=== PATIENT | male | born 1940 | race Caucasian/White ===

== ENCOUNTER → 2021-06-10 | Outpatient (CLI) | payer MEDICARE, SELFPAY ==
--- NOTE | 2021-06-10 14:37 | RAD_ITS ---
STUDY: X-RAY CHEST REASON FOR EXAM: Male, 80 years old. SOB x1 YR, WORSE ON EXACERBATION LUNG NODULE FINDING PER PATIENT AT ANOTHER FACILITYSOB TECHNIQUE: XR Chest 2 Views COMPARISON: Prior comparison studies are not available for review at this time. FINDINGS: There is no demonstrated pleural abnormality. There is a mass like infiltrate of the right lower lobe and right upper lobe. These measure 45 mm in right lower lobe. The nodules in the right upper measure 9.6 mm and 8.8 mm. Normal size heart. Normal mediastinum and prashant. Normal visualized pulmonary arteries. There is atherosclerotic calcification of the aortic arch with tortuosity. There are diffuse degenerative changes of the visualized thoracic spine. There is degenerative osteoarthritis of the bilateral shoulders. There is no demonstrated abnormality of the visualized soft tissue structures of the upper abdomen. RAD/Chest PA and Lateral IMPRESSION: Right upper lobe and right lower lobe nodule. Neoplastic process cannot be excluded. Recommend CT chest for further evaluation. Electronically Signed: Chris Vizcaino MD at 16:45 EST ,
[2021-06-10 14:38] LABS: Bacteria 0 SEEN /hpf (None Seen); Mucous, Urine 0 SEEN /hpf (<or=2+); Squamous Epithelial Cells - UA 0 SEEN /hpf (0-5)
[2021-06-10 18:12] LABS: Absolute Lymphocyte Count 1.31 X10^3/uL (0.83-4.51); Absolute Neutrophil Count 3.5 X10^3/uL (2.0-7.7); Basophil# 0.05 X10^3/uL; Basophil% 0.9 % (0-1); Eosinophil# 0.29 X10^3/uL; Hematocrit 48.3 % (40-54); Hemoglobin 16.6 g/dL (13.0-16.5); Lymphocyte # 1.31 X10^3/ul (0.83-4.51); Lymphocyte % 22.5 % (19-41); Mean Corp Hgb Conc 34.4 g/dL (32-36); Mean Corpuscular Hgb 32.9 pg (27.0-32.0); Mean Corpuscular Volume 95.8 fL (80-94); Mean Platelet Vol. 10.3 fl (6.2-12.0); Monocyte# 0.62 X10^3/uL; Monocyte% 10.7 % (0-10); NRBC Flagged by Analyzer 0 % (0-5); Neutrophil # 3.52 X10^3/uL (2.7-7.7); Neutrophil % 60.6 % (47-70); Platelet Count 135 K/mm3 (150-450); RBC Distribution Width CV 13.4 % (11.6-14.6); Red Blood Count 5.04 M/mm3 (4.6-6.2); White Blood Count 5.8 K/mm3 (4.4-11.0)
[2021-06-10 18:14] LABS: Color, Urine Yellow (Yellow); Glucose, Dipstick Normal (Normal); Ketone-Dipstick 5 mg/dl (Negative); Leukocyte Esterase-Dipstick 25 /ul (Negative); Nitrite-Dipstick Negative (Negative); Occult Blood-Urine 50 /ul (Negative); Protein-Dipstick 100 mg/dl (Negative); Urine Bilirubin Dipstick Negative (Negative); Urine Clarity Clear (Clear); Urine Urobilinogen Normal (Normal)
[2021-06-10 18:36] LABS: ALB/GLOB Ratio 0.8 RATIO (0.9-2.4); AST(SGOT) 52 U/L (15-37); Alanine Aminotransfer ALT/SGPT 61 U/L (16-61); Albumin, Serum 3.8 g/dL (3.2-5.0); Alkaline Phosphatase 77 U/L (45-117); Anion Gap 6 (5-15); BUN 15 mg/dL (7-18); BUN/Creat Ratio 15.8 RATIO (10-20); Calcium,Total 8.7 mg/dL (8.5-10.1); Chloride 107 mmol/L (98-107); Cholesterol 191 mg/dL (200); Creatinine, Serum 0.95 mg/dL (0.70-1.30); EST Glomerular Filtration Rate 81 mL/min (>60); Est Glom Filt Rate - Afr Amer 98 mL/min (>60); Globulin 4.7 g/dL (2.2-4.2); Glucose 98 mg/dL (74-106); High Density Lipoprotein 34 mg/dL; Potassium 3.5 mmol/L (3.5-5.1); Protein, Total 8.5 g/dL (6.4-8.2); Sodium Level 141 mmol/L (136-145); T4 Free Direct 0.87 ng/dL (0.76-1.46); Thyroid Stim Hormone (TSH) 8.01 uIU/mL (0.358-3.74); Triglycerides 204 mg/dL; Very Low Density Lipoprotein 41 mg/dL (5-40)
[2021-06-10 18:41] LABS: Calcium Oxalate Crystals Ur 1+ /hpf (<or=2+); Red Blood Cells-Urine 5-10 SEEN /hpf (0-5); White Blood Cells 5-10 SEEN /hpf (0-5)
[2021-06-10 18:50] LABS: Vitamin B12 401 pg/mL (211-911); Vitamin D,25 Hydroxy 36.8 ng/mL
[2021-06-12 20:06] LABS: Anti-Thyroglobulin AB < 1.0 IU/mL (0.0-0.9); Thyroglobulin, Serum Qt. 17.5 ng/mL (1.4-29.2); Thyroid Peroxidase AB < 8 IU/mL (0-34)
[2021-06-14 13:07] LABS: PROEL- A/G Ratio 0.8 (0.7-1.7); PROEL- Albumin 3.5 g/dL (2.9-4.4); PROEL- Alpha-1 Globulin 0.3 g/dL (0.0-0.4); PROEL- Alpha-2 Globulin 0.9 g/dL (0.4-1.0); PROEL- Beta Globulin 1.3 g/dL (0.7-1.3); PROEL- Gamma Globulin 1.8 g/dL (0.4-1.8); PROEL- Globulin, Total 4.3 g/dL (2.2-3.9); PROEL- TOTAL PROTEIN 7.8 g/dL (6.0-8.5)
== END | disposition home or self-care (01) ==
PROVIDERS: PCP Family Medicine; Referring Provider Family Medicine; Visit Provider Family Medicine
DX: R06.02 Shortness of breath (principal); I10 Essential (primary) hypertension; E03.9 Hypothyroidism, unspecified; R53.83 Other fatigue; R33.9 Retention of urine, unspecified
CPT/HCPCS: 36415; 71046; 80053; 80061; 81001; 82306; 82607; 84165; 84432; 84439; 84443; 85025; 86376; 86800

== ENCOUNTER 2021-07-17 08:53 | Outpatient (CLI) | payer MEDICARE, SELFPAY ==
--- NOTE | 2021-07-17 08:57 | US_ITS ---
ACR Level 3 findings have been noted. An addendum which confirms receipt of the report will follow. INDICATION: incomplete emptying of bladder/shortness of breath on exertion fo EXAMINATION: Ultrasound US Post Void Residual Urine/Bladder TECHNIQUE: Jimenez scale and color doppler imaging was performed of the urinary bladder. COMPARISON: None. FINDINGS: No stones, masses, or wall thickening. Pre-void volume is 141 mL. Post-void volume is 170 mL. Focal bladder wall thickening seen in the region of the right ureter insertion. This measures 2.7 cm wide, 1.5 cm AP dimension and 1.4 cm thick. Urothelial carcinoma is suspected. US/Post Void Residual Bladder IMPRESSION: Increased bladder volume on post void images. Bladder wall mass lesion suspicious for urothelial carcinoma. Direct visualization is recommended. Electronically Signed: Hugh Prado DO at 22:32 EST ,
== END 2021-07-17 23:59 | disposition home or self-care (01) ==
LOC: CVS 08:55
PROVIDERS: PCP Family Medicine; Referring Provider Family Medicine; Visit Provider Family Medicine
DX: R33.9 Retention of urine, unspecified (principal); R06.09 Other forms of dyspnea
CPT/HCPCS: 51798

== ENCOUNTER 2021-08-01 12:37 | Outpatient (CLI) | payer MEDICARE, SELFPAY ==
--- NOTE | 2021-08-01 12:41 | CT_ITS ---
STUDY: CT CHEST WITHOUT CONTRAST REASON FOR EXAM: Male, 80 years old. Possible right upper and lower lobe nodules. RADIATION DOSAGE (If Supplied By Facility): CTDIvol = ( 16.46 ) mGy, DLP = ( 666.41 ) mGycm TECHNIQUE: Transaxial imaging was performed without the administration of intravenous contrast material. Multiplanar coronal and sagittal images were reformatted. Individualized dose optimization techniques were used for this CT. COMPARISON: None. FINDINGS: Fibrocalcific scarring at the right lung apex. Mild scarring in the anterior aspect of the left upper lobe. Emphysematous changes worse in the upper lobes. Increased markings in the lingular segment of the left upper lobe with evidence of calcified granulomas. Bronchiectasis and scarring in the right lower lobe. There is a 7.6 mm nodule in the posterior medial segment of the right lower lobe posterior to the area of scarring. This also evidence of an 8.3 mm noncalcified nodule in the peripheral lateral aspect of the left lower lung opacity seen on axial image #94. Correlation with the PET scan is recommended. There is no demonstrated pleural abnormality. There are calcifications of the coronary arteries. There are multiple small lymph nodes within the mediastinum, which are normal in size and morphology most compatible with reactive lymph hyperplasia. Normal hilar regions. Normal unenhanced pulmonary arteries. There is atherosclerotic calcification of the aortic arch with tortuosity and elongation of the aortic arch and descending thoracic aorta. There are multi-level degenerative changes of the thoracic spine. There is no demonstrated abnormality of the visualized upper abdomen. CT/Chest without Contrast IMPRESSION: Fibrocalcific scarring in the right lung apex as well as findings suggestive scarring and bronchiectasis in the right lower lobe. Small nodules are seen in both lower lobes. Correlation with a PET scan is recommended. Electronically Signed: Rafael Theodore MD at 14:04 EDT ,
== END 2021-08-01 23:59 | disposition home or self-care (01) ==
LOC: CT 12:39
PROVIDERS: PCP Family Medicine; Referring Provider Family Medicine; Visit Provider Family Medicine
DX: R91.1 Solitary pulmonary nodule (principal)
CPT/HCPCS: 71250

== ENCOUNTER 2021-08-08 12:03 | Outpatient (CLI) | payer MEDICARE, SELFPAY ==
--- NOTE | 2021-08-08 12:04 | ECHOD_ITS ---
Reason For Study: SOB Procedure This was a 2D Doppler, Color Flow transthoracic echocardiogram. Exam performed in department. Left Ventricle Normal LV size. The estimated ejection fraction is 55 %. No evidence for diastolic dysfunction. No regional wall motion abnormalities noted. Right Ventricle Normal RV size. Normal systolic function. Atria Normal left atrium. Normal right atrium. No doppler evidence for ASD. Mitral Valve There is mild to moderate mitral annular calcification. There is no mitral valve stenosis. No mitral valve insufficiency. Tricuspid Valve There is no tricuspid stenosis. Trivial tricuspid valve insufficiency. Pulmonary artery systolic pressure is 40 mmHg. Aortic Valve Trisinus/trileaflet aortic valve. There is no aortic stenosis. Trivial aortic valve insufficiency. Pulmonic Valve There is no pulmonic valvular stenosis. No pulmonic valve insufficiency. Great Vessels Moderately dilated aortic root. Pericardium/Pleural No pericardial effusion. MMode/2D Measurements & Calculations LVIDd: 5.1 cm IVSd: 1.0 cm Ao root diam: 4.7 cm LVIDs: 3.4 cm LVPWd: 1.1 cm RVDd: 3.3 cm FS: 31.8 % LAV(MOD-bp): 68.6 ml LA A4 area: 22.3 cm2 LA dimension(2D): 4.6 cm LAV(MOD-bp) Indexed: 33.0 ml/m2 LAV(MOD-sp2): 72.7 ml LAV(MOD-sp4): 64.0 ml RA A4 area: 19.9 cm2 Time Measurements MV dec time: 0.15 sec Doppler Measurements & Calculations MV E max ellis: 71.5 cm/sec Lat Peak E' Ellis: 6.2 cm/sec Med Peak E' Ellis: 5.5 cm/sec MV A max ellis: 128.6 cm/sec E/E' lat: 11.5 E/E' med: 13.0 MV E/A: 0.56 Ao V2 max: 155.8 cm/sec LV V1 max: 100.3 cm/sec PA V2 max: 112.7 cm/sec Ao max P.7 mmHg LV V1 max P.0 mmHg ECHO/Echo Complete Interpretation Summary The estimated ejection fraction is 55 %. No evidence for diastolic dysfunction. Trivial aortic valve insufficiency. Moderately dilated aortic root. Ordering Physician: Que^Art^Verena^^ Referring Physician: Art Grey Performed By: Tete Hoang, VARGAS, RVT
== END 2021-08-08 23:59 | disposition home or self-care (01) ==
LOC: CVS 12:03
PROVIDERS: PCP Family Medicine; Referring Provider Family Medicine; Visit Provider Family Medicine
DX: R06.02 Shortness of breath (principal)
CPT/HCPCS: 93306

== ENCOUNTER 2021-08-16 05:53 | Day surgery (SDC) | payer MEDICARE, MEDICAID, SELFPAY ==
--- NOTE | 2021-08-14 12:45 | EKG12_ITS ---
Test Reason : PRE OP Blood Pressure : / mmHG Vent. Rate : 094 BPM Atrial Rate : 094 BPM P-R Int : 210 ms QRS Dur : 132 ms QT Int : 396 ms P-R-T Axes : 093 -43 090 degrees QTc Int : 495 ms Sinus rhythm with 1st degree A-V block Left axis deviation Left bundle branch block Abnormal ECG Confirmed by CHIP DELONG, GABY ([id number]), story editor JOSHUA RODGERS ([id number]) on 08/15/2021 11:22:23 AM Referred By: Bayron Grissom Confirmed By:GABY SAUNDERS MD
[2021-08-14 13:39] LABS: Hematocrit 48.5 % (40-54); Hemoglobin 16.7 g/dL (13.0-16.5); Mean Corp Hgb Conc 34.4 g/dL (32-36); Mean Corpuscular Hgb 32.9 pg (27.0-32.0); Mean Corpuscular Volume 95.7 fL (80-94); Mean Platelet Vol. 9.8 fl (6.2-12.0); Platelet Count 139 K/mm3 (150-450); RBC Distribution Width CV 12.4 % (11.6-14.6); Red Blood Count 5.07 M/mm3 (4.6-6.2); White Blood Count 6.7 K/mm3 (4.4-11.0)
[2021-08-14 13:47] LABS: Anion Gap 3 (5-15); BUN 12 mg/dL (7-18); BUN/Creat Ratio 12.4 RATIO (10-20); Calcium,Total 9.6 mg/dL (8.5-10.1); Chloride 105 mmol/L (98-107); Creatinine, Serum 0.97 mg/dL (0.70-1.30); EST Glomerular Filtration Rate 79 mL/min (>60); Est Glom Filt Rate - Afr Amer 95 mL/min (>60); Glucose 98 mg/dL (74-106); Potassium 3.7 mmol/L (3.5-5.1); Sodium Level 138 mmol/L (136-145)
[2021-08-16] VITALS (7 sets, daily range): BP systolic 126–167; BP diastolic 71–99; PULSE 81–96; RESP 16; TEMP 36.2–36.9; O2SAT 92–97; BMI 28.1
--- NOTE | 2021-08-16 | BLB_PTH ---
PATIENT: MIKEY KIMBALL LOC: [facility] U#:[id number] AGE/SX: 80/M ROOM: RE08/16/[address]: Dr. Bayron Grissom MD : 1940 BED: DIS: 08/16/2021 SPEC #: [id number] RECD: 08/16/21 10:33 STATUS: MILAN BLANCO #: [id number] COREY: 08/16/21 00:[address]: Bayron Grissom DEPT: SURGICAL PATHOLOGY RECD BY: Franck Nevarez ENTERED: 08/16/21 11:05 SP TYPE: TURB OTHR DR: Dr. Art Grey MD Tissues: Urinary bladder, NOS Procedures: Surgery Specimen Level V HEADER OPERATION: Transurethral resection of bladder tumor with Olympus PRE-OP DIAGNOSIS: Neoplasm TISSUE SUBMITTED: Bladder tumor tissue MICROSCOPIC DIAGNOSIS Bladder tumor, TUR: Noninvasive papillary urothelial carcinoma. See cancer summary in the comment section. SJ:brian 08/19/2021 COMMENT BLADDER CANCER (TUR) SUMMARY Procedure: Transurethral resection of bladder (TURBT) Tumor site: Not specified Histologic type: Papillary urothelial carcinoma, noninvasive Histologic grade: Low grade (1/3) Tumor configuration: Papillary Muscularis propria presence: Muscularis propria (detrusor muscle) is present and free of tumor. Lymphvascular invasion: Not identified Tumor extension: Noninvasive papillary carcinoma. Additional pathologic findings: None The above summary is in compliance with [employer] (CAP) Cancer Protocols Checklist and [place] [employer] Committee on Cancer (AJCC), Staging Manual, 8th Ed. Case has been reviewed in consultation with Dr. Villar who concurs with the above diagnosis. IDC:AM MICROSCOPIC DESCRIPTION Slides are reviewed. GROSS DESCRIPTION Received in fixative is one container labeled with the patient's name and designated bladder tumor tissue. The specimen consists of multiple irregular fragments of light henley soft tissue that in aggregate measure 3 x 1 x 0.1 cm. The specimen is totally submitted in one cassette. / YONY:brian 08/16/2021 TC:0 CPT: 86615
[2021-08-16] MEDS: Lactated Ringers 1,000 ML 15 ML IV (06:42)
[2021-08-16] MEDS: Cefazolin 2 GM in 0.9% Normal Saline 100 ML IV (07:30)
--- NOTE | 2021-08-16 08:14 | PCM.HP.STD ---
HPI - General HPI Narrative MIKEY KIMBALL, is a 80 M who presents for resection of a large bladder tumor PFSH Medical History (Updated 08/13/21 @ 10:40 by Kenya Ferrari) Alcohol use Bladder disease BPH (benign prostatic hyperplasia) Depression Former smoker History of echocardiogram HTN (hypertension) Incomplete bladder emptying Loss of hearing Lung nodule Restless legs Shortness of breath on exertion Wears dentures Wears glasses Home Medications albuterol sulfate 90 mcg/actuation aerosol inhaler 2 puff INHALATION Q4H PRN g 08/07/21 [History Last Taken 08/15/21] amlodipine 10 mg tablet 10 mg PO DAILY tab 08/07/21 [History Last Taken 08/16/21 10 mg] multivitamin 1 tab PO DAILY 08/07/21 [History Last Taken 08/15/21] finasteride 5 mg tablet 5 mg PO DAILY tab 08/08/21 [History Last Taken 08/15/21] Allergy/AdvReac Type Severity Reaction Status Date / Time No Known Allergies Allergy Verified 08/16/21 06:33 Family History (Updated 08/07/21 @ 15:21 by Kenia Swann) Mother Cancer Hypertension EtOH dependence Father Hypertension EtOH dependence Surgical History (Updated 08/07/21 @ 15:23 by Kenia Swann) Hx of appendectomy Hx of tonsillectomy Social History (Updated 08/08/21 @ 10:25 by Kenia Swann) Smoking Status: Former smoker Tobacco: How many years used: 53 Electronic Cigarette Use: not used how long ago did patient quit smoking: quit in 2001 alcohol intake: current alcohol intake frequency: holidays/special occasions only substance use type: does not use Vital Signs Vital Signs Vital Signs: 08/16/21 06:34 Temperature 98.4 F Temperature Source Temporal Pulse Rate 83 Respiratory Rate 16 Respiratory Pattern Normal Blood Pressure 126/74 H Blood Pressure Mean 91 Blood Pressure Source Monitor Blood Pressure Position Semi-Fowlers Blood Pressure Location Left Arm Pulse Ox 95 Oxygen Delivery Method Room Air Weight Weight: 89 kg Body Mass Index (BMI) 28.1 Results Lab / Micro Data Result Diagrams: 08/14/21 13:02 08/14/21 13:02
--- NOTE | 2021-08-16 08:14 | PCM.DC ---
Discharge Instructions Diet Discharge Diet: No restrictions Activity Discharge Activity: Return to Normal Activity and May Not Drive (while taking narcotic pain medications.) Dressing / Incision Call your doctor if you observe: Fever of 101 or Higher Follow Up Care Please Follow Up With: Bayron Grissom MD When: Call [phone] for an appointment Test Results: Test results from this visit will be discussed in further detail at your follow-up appointment, if applicable. Discharge Plan Admission Primary Reason for Your Visit: resected bladder tumor Attending Provider: Bayron Grissom Primary Care Provider: Art Grey Instructions Patient Instructions: Discharge Instructions for ... Discharge Orders/Prescriptions Prescriptions: Continued amlodipine 10 mg tablet 10 mg PO DAILY RF: 0 multivitamin Tablet 1 tab PO DAILY RF: 0 albuterol sulfate 90 mcg/actuation HFA aerosol inhaler 2 puff inhalation Q4H PRN (Reason: SOB) RF: 0 finasteride 5 mg tablet 5 mg PO DAILY RF: 0 Referrals / Follow Up: Bayron Grissom MD [STAFF PHYSICIAN] - Art Grey MD [Primary Care Provider] - Disposition Disposition (needs filled in before D/C Order can be placed): Home, Self Care
--- NOTE | 2021-08-16 08:14 | PCM.OPRPT ---
Report of Operation Date of Procedure: 08/16/21 Pre-Operative Diagnosis: Bladder tumor large Post-Operative Diagnosis: Same Surgery/Procedure Performed:: Transurethral resection of a large bladder tumor and instillation of mitomycin-C Description of Surgical Findings:: 80-year-old male was taken back to the operating room at the smooth induction of general anesthesia he was placed in dorsolithotomy position. The penis testicle prepped and draped in usual sterile fashion went in the bladder with a 24 Upper Sorbian noncontinuous flow Olympus bipolar resectoscope upon inspecting of the bladder I found a tumor that was occupying the right lateral wall and right trigone area of the bladder he then had multiple reddish areas on the left side of the bladder posterior bladder and dome of the bladder. I cauterized the reddish areas these were suspicious for carcinoma in situ I then used the resectoscope and resected this large tumor that was occupying the right lateral wall and trigone I did have to resect the ureteral orifice but it was open at the end of the resection after resecting this large tumor then I evacuated all the bladder pieces bladder chips out of the bladder tender little tiny chips that were then sent off as a specimen. We irrigated out the bladder with sterile water and then put a catheter in the bladder and the postoperative recovery unit he will get a dose of mitomycin-C. Surgeon: omaira Type of Anesthesia: General Drains: arrington Admit VTE Documentation VTE Present on Admission: No VTE Mechan Device Prophylaxis: SCD's VTE Pharm Prophylaxis ordered?: No
--- NOTE | 2021-08-16 08:52 | SUR.PHASEI ---
0840-DR GONZALEZ AT BEDSIDE TO INSTILL MITOMYCIN MEDICATION. STATES TO LEAVE CATHETER IN FOR 40 MINS, DRAIN AND REMOVE, THEN PATIENT MUST VOID PRIOR TO DISCHARGE
--- NOTE | 2021-08-16 09:45 | SUR.PHASEII ---
catheter unclamped and drained of 120cc dark red fluid. catheter then removed. pt tolerated well
== END 2021-08-16 23:59 | disposition home or self-care (01) ==
LOC: SDC 05:53 → AC 05:53
PROVIDERS: Anesthesiology; PCP Family Medicine; Referring Provider Urology; Visit Provider Urology
PROC: 0T5B8ZZ Destruction of Bladder, Via Natural or Artificial Opening Endoscopic (ICD-10-PCS; CPT 51720; principal; 2021-08-16 07:15)
DX: C67.2 Malignant neoplasm of lateral wall of bladder (principal); J47.9 Bronchiectasis, uncomplicated; N40.1 Benign prostatic hyperplasia with lower urinary tract symptoms; R35.1 Nocturia; R33.8 Other retention of urine; R39.12 Poor urinary stream; I10 Essential (primary) hypertension; F32.A Depression, unspecified; Z79.899 Other long term (current) drug therapy; Z87.891 Personal history of nicotine dependence
CPT/HCPCS: 52240; 51720; 00912; 36415; 80048; 85027; 88307; 93005; J7120; J2405; J3490; J9280

== ENCOUNTER → 2021-10-04 | Outpatient (CLI) | payer MEDICARE, MEDICAID, SELFPAY ==
[2021-10-04 15:15] LABS: Absolute Lymphocyte Count 1.18 X10^3/uL (0.83-4.51); Absolute Neutrophil Count 2.7 X10^3/uL (2.0-7.7); Basophil# 0.05 X10^3/uL; Basophil% 1.1 % (0-1); Eosinophil# 0.22 X10^3/uL; Eosinophils% 4.7 % (0-5); Hemoglobin 15.1 g/dL (13.0-16.5); Lymphocyte # 1.18 X10^3/ul (0.83-4.51); Lymphocyte % 25.4 % (19-41); Mean Corp Hgb Conc 33.6 g/dL (32-36); Mean Corpuscular Hgb 32.3 pg (27.0-32.0); Mean Corpuscular Volume 96.4 fL (80-94); Mean Platelet Vol. 10.4 fl (6.2-12.0); Monocyte# 0.48 X10^3/uL; Monocyte% 10.3 % (0-10); NRBC Flagged by Analyzer 0 % (0-5); Neutrophil # 2.68 X10^3/uL (2.7-7.7); Neutrophil % 57.9 % (47-70); Platelet Count 149 K/mm3 (150-450); RBC Distribution Width CV 12.8 % (11.6-14.6); RBC Distribution Width SD 45.1 fl (35.1-43.9); Red Blood Count 4.67 M/mm3 (4.6-6.2); White Blood Count 4.6 K/mm3 (4.4-11.0)
[2021-10-04 15:43] LABS: ALB/GLOB Ratio 0.9 RATIO (0.9-2.4); AST(SGOT) 50 U/L (15-37); Alanine Aminotransfer ALT/SGPT 55 U/L (16-61); Albumin, Serum 3.4 g/dL (3.2-5.0); Alkaline Phosphatase 67 U/L (45-117); Anion Gap 4 (5-15); BUN 13 mg/dL (7-18); BUN/Creat Ratio 13.4 RATIO (10-20); Calcium,Total 8.5 mg/dL (8.5-10.1); Chloride 107 mmol/L (98-107); Cholesterol 161 mg/dL (200); Creatinine, Serum 0.97 mg/dL (0.70-1.30); EST Glomerular Filtration Rate 79 mL/min (>60); Est Glom Filt Rate - Afr Amer 95 mL/min (>60); Globulin 3.8 g/dL (2.2-4.2); Glucose 177 mg/dL (74-106); High Density Lipoprotein 32 mg/dL; Potassium 3.6 mmol/L (3.5-5.1); Protein, Total 7.2 g/dL (6.4-8.2); Sodium Level 141 mmol/L (136-145); T4 Free Direct 0.86 ng/dL (0.76-1.46); Thyroid Stim Hormone (TSH) 6.42 uIU/mL (0.358-3.74); Triglycerides 216 mg/dL; Very Low Density Lipoprotein 43 mg/dL (5-40)
[2021-10-08 10:45] LABS: Hemoglobin A1c 5.7 % (3.8-5.6)
[2021-10-11 07:53] LABS: Anti-Thyroglobulin AB < 1.0 IU/mL (0.0-0.9); Thyroglobulin, Serum Qt. 20.3 ng/mL (1.4-29.2); Thyroid Peroxidase AB < 8 IU/mL (0-34)
== END | disposition home or self-care (01) ==
LOC: MFPLAB 11:51
PROVIDERS: PCP Family Medicine; Referring Provider Family Medicine; Visit Provider Family Medicine
DX: R79.89 Other specified abnormal findings of blood chemistry (principal); I10 Essential (primary) hypertension; E03.9 Hypothyroidism, unspecified
CPT/HCPCS: 36415; 80053; 80061; 83036; 84432; 84439; 84443; 85025; 86376; 86800

== ENCOUNTER → 2021-10-14 | Outpatient (CLI) | payer MEDICARE, MEDICAID, SELFPAY ==
[2021-10-14 12:40] VITALS: PULSE 101; PULSE 107; PULSE 110; PULSE 112; PULSE 115; PULSE 74; PULSE 96; O2SAT 88; O2SAT 89; O2SAT 90; O2SAT 91; O2SAT 92
--- NOTE | 2021-10-14 12:42 | CPS ---
Patient does not have oxygen at home. Maintained an SpO2 of 89% most of the test and then dropped to 88% right at the end of testing. Discussed home oxygen with the patient.
--- NOTE | 2021-10-15 06:52 | PCM.PSN.6M ---
PSN 6 Minute Walk Test 6 Minute Walk Test 6 Minute Walk Test: 6 Minute Walk Test PSN:6-Minute Walk Test Start: 10/14/21 12:40 Freq: Status: Active Protocol: [id number].6MINW Document 10/14/21 12:40 MOLLY (Rec: 10/14/21 12:47 MOLLY [id number]) 6 Minute Walk Test Date Performed 10/14/21 Time Performed 12:30 Height 5 ft 10 in Weight: 90.718 kg Weight in Pounds 200.[address]: Anthony Monroy Assistive device used: None Pre-test Oxygen Delivery Method Room Air Pulse Ox (%) 91 Pulse Rate (60-100 beats/min) 96 Dyspnea Yanni Scale (0-10) 1 Exertion Yanni Scale (6-20) 6 1st minute Oxygen Delivery Method Room Air Pulse Ox (%) 90 Pulse Rate (60-100 beats/min) 107 H 2nd minute Oxygen Delivery Method Room Air Pulse Ox (%) 89 Pulse Rate (60-100 beats/min) 101 H 3rd minute Oxygen Delivery Method Room Air Pulse Ox (%) 89 Pulse Rate (60-100 beats/min) 110 H 4th minute Oxygen Delivery Method Room Air Pulse Ox (%) 89 Pulse Rate (60-100 beats/min) 115 H 5th minute Oxygen Delivery Method Room Air Pulse Ox (%) 89 Pulse Rate (60-100 beats/min) 112 H 6th minute Oxygen Delivery Method Room Air Pulse Ox (%) 88 Pulse Rate (60-100 beats/min) 110 H Dyspnea Yanni Scale (0-10) 3 Exertion Yanni Scale (6-20) 14 Post-test Oxygen Delivery Method Room Air Pulse Ox (%) 92 Pulse Rate (60-100 beats/min) 74 Full Laps Walked 10 Partial Lap, Number of Tiles Walked 0 Total Distance Walked (ft) 590 10/14/21 12:42 Cardiopulmonary Services by Patrizia Aguirre Patient does not have oxygen at home. Maintained an SpO2 of 89% most of the test and then dropped to 88% right at the end of testing. Discussed home oxygen with the patient. Initialized on 10/14/21 12:42 - END OF NOTE Interpretation Interpretation: The patient ambulated 590 feet over the course of 6 minutes beginning on room air without assistive devices. Pretesting oxygen saturation was noted to be 91% on room air. With ambulation, the nayely oxygen saturation was 88% at minute 6 of testing. Although there was technically no significant oxygen desaturation, the patient did demonstrate a low resting pulse ox at rest with desaturation to 88%, which technically met criteria for the use of supplemental oxygen. Recommendations Recommendations: The patient technically met criteria for the use of supplemental oxygen at minute 6 of testing. However, supplemental O2 was never applied. 2 L/min of supplemental oxygen should be considered with exertion.
== END | disposition home or self-care (01) ==
LOC: PSN 12:15
PROVIDERS: PCP Family Medicine; Referring Provider Internal Medicine Critical Care Medicine; Visit Provider Internal Medicine Critical Care Medicine
DX: R06.02 Shortness of breath (principal)
CPT/HCPCS: 94618

== ENCOUNTER → 2021-10-17 | Outpatient (CLI) | payer MEDICARE, MEDICAID, SELFPAY ==
--- NOTE | 2021-10-17 15:14 | PFTCOMP ---
COMPLETE PULMONARY FUNCTION TEST INTERPRETATION Brief HPI: Patient is an 81-year-old male, currently under the care of myself, who presents to [facility] for complete pulmonary function tests secondary to diagnosis of dyspnea. Respiratory therapist reports good effort and reproducible results. Interpretation: Forced expiration spirometry shows a moderate large airways obstructive ventilatory defect with an FEV1 of 61% predicted. There is no significant bronchodilator response by strict ATS criteria. Spirograms are of good quality and plateau slowly, indicating slowly emptying areas of the lungs. The respiratory flow volume loop shows decreased expiratory flow rates at high lung volumes consistent with small airways obstruction. Lung volumes by body plethysmography show a decreased total lung capacity at 4.3 L, 68% predicted. All other lung volumes are reduced symmetrically. Diffusion capacity by carbon monoxide is decreased at 54% predicted. The airway resistance is elevated. No previous pulmonary function tests were available for review. Impression: Irreversible moderate mixed ventilatory defect with a symmetric reduction diffusion capacity
== END | disposition home or self-care (01) ==
LOC: PSN 10:47
PROVIDERS: PCP Family Medicine; Referring Provider Internal Medicine Critical Care Medicine; Visit Provider Internal Medicine Critical Care Medicine
DX: R06.02 Shortness of breath (principal)
CPT/HCPCS: 94060; 94726; 94729

== ENCOUNTER → 2021-11-08 | Outpatient (CLI) | payer MEDICARE, MEDICAID, SELFPAY ==
--- NOTE | 2021-11-08 12:48 | CT_ITS ---
STUDY: CT CHEST CONTRAST REASON FOR EXAM: Male, 81 years old. Lung nodules RADIATION DOSAGE (If Supplied By Facility): CTDIvol = ( 15.53 ) mGy, DLP = ( 550.93 ) mGycm TECHNIQUE: Transaxial imaging was performed without the administration of intravenous contrast material. Multiplanar coronal and sagittal images were reformatted. Individualized dose optimization techniques were used for this CT. COMPARISON: Comparison is made with prior study dated 08/01/2021. FINDINGS: CHEST Once again, there is fibrocalcific scarring at the right lung apex. There is also evidence of scarring in the anterior aspect of the left upper lobe with evidence of bronchiectasis. Emphysematous changes worse in the upper lobes. Persistent bronchiectasis and scarring in the right lower lobe measuring 3.8 cm x 3.1 cm. Stable 8.3 mm noncalcified nodule in the peripheral aspect of the left lower lobe. This is pleural-based. There are calcifications of the coronary arteries. There are multiple small lymph nodes within the mediastinum, which are normal in size and morphology most compatible with reactive lymph hyperplasia. Normal hilar regions. Normal unenhanced pulmonary arteries. There is atherosclerotic calcification of the aortic arch with tortuosity and elongation of the aortic arch and descending thoracic aorta. There are multi-level degenerative changes of the thoracic spine. There is no demonstrated abnormality of the visualized upper abdomen. CT/Chest without Contrast IMPRESSION: Stable examination. Electronically Signed: Rafael Theodore MD at 14:14 EDT ,
== END | disposition home or self-care (01) ==
LOC: CT 12:47
PROVIDERS: PCP Family Medicine; Referring Provider Internal Medicine Critical Care Medicine; Visit Provider Internal Medicine Critical Care Medicine
DX: I25.10 Atherosclerotic heart disease of native coronary artery without angina pectoris (principal); J47.9 Bronchiectasis, uncomplicated; R91.1 Solitary pulmonary nodule
CPT/HCPCS: 71250

== ENCOUNTER → 2021-11-12 | Outpatient (CLI) | payer MEDICARE, MEDICAID, SELFPAY ==
[2021-11-12] MEDS: Zolpidem Tartrate 5 MG Tablet PO (21:34)
== END | disposition home or self-care (01) ==
LOC: SL 20:23
PROVIDERS: PCP Family Medicine; Referring Provider Nurse Practitioner Acute Care; Visit Provider Nurse Practitioner Acute Care
DX: G47.30 Sleep apnea, unspecified (principal)
CPT/HCPCS: 95810

== ENCOUNTER → 2022-01-10 | Outpatient (CLI) | payer MEDICARE, MEDICAID, SELFPAY ==
[2022-01-10 11:31] LABS: Bacteria 0 SEEN /hpf (None Seen); Squamous Epithelial Cells - UA 0 SEEN /hpf (0-5)
[2022-01-10 12:13] LABS: Absolute Lymphocyte Count 1.29 X10^3/uL (0.83-4.51); Absolute Neutrophil Count 3.1 X10^3/uL (2.0-7.7); Basophil# 0.06 X10^3/uL; Basophil% 1.1 % (0-1); Eosinophil# 0.24 X10^3/uL; Eosinophils% 4.6 % (0-5); Hematocrit 45.3 % (40-54); Hemoglobin 15.7 g/dL (13.0-16.5); Lymphocyte # 1.29 X10^3/ul (0.83-4.51); Lymphocyte % 24.5 % (19-41); Mean Corp Hgb Conc 34.7 g/dL (32-36); Mean Corpuscular Hgb 33.1 pg (27.0-32.0); Mean Corpuscular Volume 95.4 fL (80-94); Mean Platelet Vol. 10.5 fl (6.2-12.0); Monocyte# 0.58 X10^3/uL; NRBC Flagged by Analyzer 0 % (0-5); Neutrophil # 3.07 X10^3/uL (2.7-7.7); Neutrophil % 58.2 % (47-70); Platelet Count 136 K/mm3 (150-450); RBC Distribution Width CV 12.5 % (11.6-14.6); RBC Distribution Width SD 43.8 fl (35.1-43.9); Red Blood Count 4.75 M/mm3 (4.6-6.2); White Blood Count 5.3 K/mm3 (4.4-11.0)
[2022-01-10 12:38] LABS: Vitamin B12 400 pg/mL (211-911)
[2022-01-10 12:45] LABS: Hemoglobin A1c 5.8 % (3.8-5.6)
[2022-01-10 12:58] LABS: ALB/GLOB Ratio 0.8 RATIO (0.9-2.4); AST(SGOT) 94 U/L (15-37); Alanine Aminotransfer ALT/SGPT 93 U/L (16-61); Albumin, Serum 3.3 g/dL (3.2-5.0); Alkaline Phosphatase 79 U/L (45-117); Anion Gap 8 (5-15); BUN 11 mg/dL (7-18); BUN/Creat Ratio 11.2 RATIO (10-20); Calcium,Total 8.3 mg/dL (8.5-10.1); Chloride 107 mmol/L (98-107); Creatinine, Serum 0.99 mg/dL (0.70-1.30); EST Glomerular Filtration Rate 77 mL/min (>60); Est Glom Filt Rate - Afr Amer 93 mL/min (>60); Globulin 4.3 g/dL (2.2-4.2); Glucose 182 mg/dL (74-106); Potassium 3.6 mmol/L (3.5-5.1); Protein, Total 7.6 g/dL (6.4-8.2); Sodium Level 140 mmol/L (136-145); T4 Free Direct 0.84 ng/dL (0.76-1.46); Thyroid Stim Hormone (TSH) 6.59 uIU/mL (0.358-3.74)
[2022-01-10 15:05] LABS: Color, Urine Yellow (Yellow); Glucose, Dipstick Normal (Normal); Ketone-Dipstick Negative (Negative); Leukocyte Esterase-Dipstick 25 /ul (Negative); Nitrite-Dipstick Negative (Negative); Occult Blood-Urine 150 /ul (Negative); Protein-Dipstick 30 mg/dl (Negative); Urine Bilirubin Dipstick Negative (Negative); Urine Clarity Sl. Cloudy (Clear); Urine Urobilinogen Normal (Normal); Urine pH 6.5 (5.0 - 8.0)
[2022-01-10 15:24] LABS: Red Blood Cells-Urine 10-25 SEEN /hpf (0-5); White Blood Cells 0-5 SEEN /hpf (0-5)
[2022-01-10 15:25] LABS: Mucous, Urine 2+ /hpf (<or=2+)
== END | disposition home or self-care (01) ==
LOC: MFPLAB 11:23
PROVIDERS: PCP Family Medicine; Visit Provider Family Medicine
DX: I10 Essential (primary) hypertension (principal); R73.02 Impaired glucose tolerance (oral); E03.9 Hypothyroidism, unspecified; R41.3 Other amnesia
CPT/HCPCS: 36415; 80053; 81001; 82607; 83036; 84439; 84443; 85025

== ENCOUNTER → 2022-02-11 | Outpatient (CLI) | payer MEDICARE, MEDICAID, SELFPAY ==
[2022-02-11 10:47] LABS: Hematocrit 46.1 % (40-54); Hemoglobin 15.8 g/dL (13.0-16.5); Mean Corp Hgb Conc 34.3 g/dL (32-36); Mean Corpuscular Hgb 32.4 pg (27.0-32.0); Mean Corpuscular Volume 94.5 fL (80-94); Mean Platelet Vol. 9.9 fl (6.2-12.0); Platelet Count 154 K/mm3 (150-450); RBC Distribution Width CV 12.5 % (11.6-14.6); RBC Distribution Width SD 43.7 fl (35.1-43.9); Red Blood Count 4.88 M/mm3 (4.6-6.2)
[2022-02-11 11:32] LABS: Anion Gap 8 (5-15); BUN 16 mg/dL (7-18); BUN/Creat Ratio 16.5 RATIO (10-20); Calcium,Total 9.1 mg/dL (8.5-10.1); Chloride 108 mmol/L (98-107); Creatinine, Serum 0.97 mg/dL (0.70-1.30); EST Glomerular Filtration Rate 79 mL/min (>60); Est Glom Filt Rate - Afr Amer 95 mL/min (>60); Glucose 153 mg/dL (74-106); Potassium 3.5 mmol/L (3.5-5.1); Sodium Level 141 mmol/L (136-145)
== END | disposition home or self-care (01) ==
PROVIDERS: PCP Family Medicine; Referring Provider Urology; Visit Provider Urology
DX: C67.8 Malignant neoplasm of overlapping sites of bladder (principal); R31.0 Gross hematuria
CPT/HCPCS: 36415; 80048; 85027; 87086; 87088

== ENCOUNTER 2022-03-21 12:15 | Day surgery (SDC) | payer MEDICARE, MEDICAID, SELFPAY ==
--- NOTE | 2022-03-21 | BLB_PTH ---
PATIENT: MIKEY KIMBALL LOC: [facility] [place] U#:[id number] AGE/SX: 81/M ROOM: RE03/21/[address]: Dr. Bayron Grissom MD : 1940 BED: DIS: 03/21/2022 SPEC #: [id number] RECD: 03/21/22 15:39 STATUS: MILAN REDonna #: [id number] COREY: 03/21/22 00:[address]: Bayron Grissom DEPT: SURGICAL PATHOLOGY RECD BY: Franck Nevarez ENTERED: 03/24/22 09:37 SP TYPE: TURB OTHR DR: Dr. Art Grey MD Tissues: Urinary bladder, NOS Procedures: Surgery Specimen Level V HEADER OPERATION: Litholapaxy, transureteral resection of right ureteral PRE-OP DIAGNOSIS: Large bladder stone POST-OP DIAGNOSIS: Same with right ureteral orifice scarring TISSUE SUBMITTED: Bladder tissue and stones MICROSCOPIC DIAGNOSIS Bladder tissue and stones, TUR: Fragments of bladder wall including detrusor muscle with chronic inflammation. Negative for malignancy. Fragments of stones, gross only. /SJ 03/25/22 MICROSCOPIC DESCRIPTION Slides are reviewed. GROSS DESCRIPTION Received in fixative is one container labeled with the patient's name and designated bladder tissue and stones. The specimen consists of multiple irregular fragments of pink-henley, rubbery, soft tissue that in measure in aggregate 2.0 x 2.0 x 0.3 cm. The specimen is totally submitted in one cassette. Also present in the container are multiple fragments of brown stones measuring in aggregate 2 x 1.0 x0.3 cm and 0.1 to 0.2 cm in greatest dimension. Stone are for gross identification. /YONY:elizabeth 03/24/22 TC:3 CPT:60121
[2022-03-21 12:50] VITALS: BP 153/71; PULSE 48; RESP 16; TEMP 36.3; O2SAT 93; BMI 29.8
[2022-03-21] MEDS: Lactated Ringers 1,000 ML 15 ML IV (12:54)
[2022-03-21] MEDS: Cefazolin 2 GM in 0.9% Normal Saline 100 ML IV (14:40)
--- NOTE | 2022-03-21 14:47 | DCINST_ITS ---
Discharge Instructions Diet Discharge Diet: No restrictions, Light diet - advance as tolerated and Soft diet Activity Discharge Activity: Return to Normal Activity Follow Up Care Please Follow Up With: Bayron Grissom MD When: follow up in a few weeks. Test Results: Test results from this visit will be discussed in further detail at your follow- up appointment, if applicable. Discharge Plan Admission Primary Reason for Your Visit: laser of large bladder stone Attending Provider: Bayron Grissom Primary Care Provider: Art Grey Discharge Orders/Prescriptions Prescriptions: Continued amlodipine 10 mg tablet 10 mg PO DAILY multivitamin Tablet 1 tab PO DAILY finasteride 5 mg tablet 5 mg PO DAILY omeprazole 20 mg capsule,delayed release(DR/EC) 20 mg PO DAILY Stiolto Respimat 2.5-2.5 mcg/actuation mist 2 inh inhalation DAILY Qty: 4 5RF albuterol sulfate 90 mcg/actuation HFA aerosol inhaler 2 puff inhalation Q4H PRN (Reason: SOB) Qty: 8.5 1RF Referrals / Follow Up: Bayron Grissom MD [Med Staff - Active Staff] - Art Grey MD [Primary Care Provider] - Disposition Disposition (needs filled in before D/C Order can be placed): Home, Self Care
--- NOTE | 2022-03-21 14:48 | PCM.OPRPT ---
Report of Operation Date of Procedure: 03/21/22 Pre-Operative Diagnosis: large bladder stones Post-Operative Diagnosis: same Surgery/Procedure Performed:: large cystolitholapaxy, and TURBT Description of Surgical Findings:: Patient was taken back to the operating room after smooth induction of general anesthesia. The urethra and genitals were prepped and draped in usual sterile fashion. Went into the bladder using a 24 Turkmen cystoscope. We used the laser bridge through the scope for continuous irrigation. Then using the laser bridge we introduced a laser fiber into the bladder and the stone in the bladder was trapped against the back wall. The stone measured larger than 2,5cm in total size. No tumors where seen in the bladder. The stone was then lasered using laser lithotripsy the small little pieces all the pieces were evacuated on the bladder. After all the stones were removed then the scope was removed there was minimal bleeding. I went into the bladder with a 30 degree lens and a cystoscope was performed and identified tumor and stone that was scarred of the right ureteral orfice. I then switched over to the 70 degree lens and inspected the rest of the bladder with a 70 degree lens to make sure there is no other tumors in the bladder and to identify all the tumor locations. The right and left ureteral orifice were identified. The tumor was involved in the Right ureteral orifice. I then placed the Olympus bipolar resectoscope with a large loop into the bladder. I then started resected the tumor and started superficially shaving small little pieces working my way to the base of the tumor. As I went along I then cauterize any bleeders that were encountered during the resection. The tumor pieces were then flushed out of the bladder and continued resecting the tumor until finally I got down to the base of the tumor and the muscle of the bladder was then identified a small little bit of muscle was taken with the resection. The Ellik was used then to evacuate all the tumor pieces out of the bladder. I then cauterized extensively the tumor base and also circumferentially around where the tumor was. Again we made sure to evacuate all the pieces out the bladder. I made sure there was no more bleeding from the base of the bladder and then over the tumor pieces were then evacuated out and sent off as a specimen, the patient was taken back to the PACU in stable condition. Surgeon: Bayron Grissom Type of Anesthesia: General Drains: none Admit VTE Documentation VTE Present on Admission: No VTE Mechan Device Prophylaxis: SCD's
[2022-03-21] MEDS: Lactated Ringers 1,000 ML 100 ML IV (14:50)
[2022-03-21 15:27] VITALS: BP 111/72; BP 153/71; PULSE 70; RESP 18; TEMP 36.3; O2SAT 92
[2022-03-21 15:30] VITALS: BP 128/85; BP 153/71; PULSE 71; RESP 18; O2SAT 92
[2022-03-21] MEDS: Ketorolac 15 MG/ML Vial IV (15:43)
[2022-03-21 15:45] VITALS: BP 137/74; BP 153/71; PULSE 74; RESP 18; O2SAT 93
[2022-03-21 15:59] VITALS: BP 140/88; BP 153/71; PULSE 75; RESP 18; TEMP 36.1; O2SAT 93
[2022-03-21 16:39] VITALS: BP 153/71
== END 2022-03-21 16:40 | disposition home or self-care (01) ==
LOC: SDC 12:16 → AC 12:17
PROVIDERS: PCP Family Medicine; Referring Provider Urology; Visit Provider Urology
PROC: (CPT 52318; principal; 2022-03-21 14:15)
DX: N21.0 Calculus in bladder (principal); K21.9 Gastro-esophageal reflux disease without esophagitis; I10 Essential (primary) hypertension; G47.30 Sleep apnea, unspecified; Z79.899 Other long term (current) drug therapy; Z99.81 Dependence on supplemental oxygen; Z85.51 Personal history of malignant neoplasm of bladder; Z87.891 Personal history of nicotine dependence
CPT/HCPCS: 52318; 00910; 88307; J7120; C1769; J2405

== ENCOUNTER → 2022-03-27 | Outpatient (CLI) | payer MEDICARE, MEDICAID, SELFPAY ==
[2022-03-27 18:02] LABS: Absolute Lymphocyte Count 1.27 X10^3/uL (0.83-4.51); Basophil# 0.04 X10^3/uL; Basophil% 0.8 % (0-1); Eosinophil# 0.19 X10^3/uL; Eosinophils% 3.7 % (0-5); Hematocrit 38.5 % (40-54); Hemoglobin 12.5 g/dL (13.0-16.5); Lymphocyte # 1.27 X10^3/ul (0.83-4.51); Lymphocyte % 24.6 % (19-41); Mean Corp Hgb Conc 32.5 g/dL (32-36); Mean Corpuscular Hgb 31.9 pg (27.0-32.0); Mean Corpuscular Volume 98.2 fL (80-94); Mean Platelet Vol. 10.4 fl (6.2-12.0); Monocyte% 11.6 % (0-10); NRBC Flagged by Analyzer 0 % (0-5); Neutrophil # 3.03 X10^3/uL (2.7-7.7); Neutrophil % 58.7 % (47-70); Platelet Count 140 K/mm3 (150-450); RBC Distribution Width CV 13.2 % (11.6-14.6); RBC Distribution Width SD 46.7 fl (35.1-43.9); Red Blood Count 3.92 M/mm3 (4.6-6.2); White Blood Count 5.2 K/mm3 (4.4-11.0)
[2022-03-27 18:19] LABS: ALB/GLOB Ratio 0.8 RATIO (0.9-2.4); AST(SGOT) 42 U/L (15-37); Alanine Aminotransfer ALT/SGPT 56 U/L (16-61); Albumin, Serum 3.2 g/dL (3.2-5.0); Alkaline Phosphatase 70 U/L (45-117); Anion Gap 5 (5-15); BUN 12 mg/dL (7-18); BUN/Creat Ratio 11.3 RATIO (10-20); Calcium,Total 8.8 mg/dL (8.5-10.1); Chloride 109 mmol/L (98-107); Creatinine, Serum 1.06 mg/dL (0.70-1.30); EST Glomerular Filtration Rate 71 mL/min (>60); Est Glom Filt Rate - Afr Amer 86 mL/min (>60); Globulin 3.8 g/dL (2.2-4.2); Glucose 117 mg/dL (74-106); Potassium 3.6 mmol/L (3.5-5.1); Sodium Level 143 mmol/L (136-145); T4 Free Direct 0.96 ng/dL (0.76-1.46); Thyroid Stim Hormone (TSH) 6.05 uIU/mL (0.358-3.74)
[2022-03-27 18:28] LABS: Vitamin B12 342 pg/mL (211-911); Vitamin D,25 Hydroxy 40.5 ng/mL
[2022-03-28 11:54] LABS: Ferritin 551 ng/mL (26-388); Iron 63 ug/dL (65-175); Iron Binding Capacity,Total 267 ug/dL (250-450); PERCENT IRON SATURATION 23.6 % (15.0-55.0)
[2022-03-31 15:08] LABS: PROEL- A/G Ratio 0.9 (0.7-1.7); PROEL- Albumin 2.8 g/dL (2.9-4.4); PROEL- Alpha-1 Globulin 0.3 g/dL (0.0-0.4); PROEL- Alpha-2 Globulin 0.7 g/dL (0.4-1.0); PROEL- Gamma Globulin 1.1 g/dL (0.4-1.8); PROEL- Globulin, Total 3.2 g/dL (2.2-3.9)
== END | disposition home or self-care (01) ==
LOC: MFPLAB 14:49
PROVIDERS: PCP Family Medicine; Referring Provider Family Medicine; Visit Provider Family Medicine
DX: D64.9 Anemia, unspecified (principal); R53.83 Other fatigue; E88.09 Other disorders of plasma-protein metabolism, not elsewhere classified
CPT/HCPCS: 36415; 80053; 82306; 82607; 82728; 83540; 83550; 84165; 84439; 84443; 85025

== ENCOUNTER → 2022-07-11 | Outpatient (CLI) | payer MEDICARE, MEDICAID, SELFPAY ==
[2022-07-11 18:17] LABS: ALB/GLOB Ratio 0.8 RATIO (0.9-2.4); AST(SGOT) 95 U/L (15-37); Alanine Aminotransfer ALT/SGPT 78 U/L (16-61); Albumin, Serum 3.4 g/dL (3.2-5.0); Alkaline Phosphatase 81 U/L (45-117); Anion Gap 8 (5-15); BUN 12 mg/dL (7-18); BUN/Creat Ratio 12.9 RATIO (10-20); Calcium,Total 8.9 mg/dL (8.5-10.1); Chloride 104 mmol/L (98-107); Cholesterol 170 mg/dL (200); Creatinine, Serum 0.93 mg/dL (0.70-1.30); EST Glomerular Filtration Rate 82 mL/min (>60); Est Glom Filt Rate - Afr Amer 100 mL/min (>60); Globulin 4.3 g/dL (2.2-4.2); Glucose 130 mg/dL (74-106); High Density Lipoprotein 26 mg/dL; Potassium 3.8 mmol/L (3.5-5.1); Protein, Total 7.7 g/dL (6.4-8.2); Sodium Level 141 mmol/L (136-145); T4 Free Direct 0.94 ng/dL (0.76-1.46); Thyroid Stim Hormone (TSH) 5.59 uIU/mL (0.358-3.74); Triglycerides 218 mg/dL; Very Low Density Lipoprotein 44 mg/dL (5-40)
[2022-07-11 18:40] LABS: Hemoglobin A1c 5.6 % (3.8-5.6)
[2022-07-11 18:41] LABS: Absolute Lymphocyte Count 1.51 X10^3/uL (0.83-4.51); Absolute Neutrophil Count 3.2 X10^3/uL (2.0-7.7); Basophil# 0.04 X10^3/uL; Basophil% 0.7 % (0-1); Eosinophil# 0.16 X10^3/uL; Eosinophils% 2.9 % (0-5); Hematocrit 45.7 % (40-54); Hemoglobin 15.4 g/dL (13.0-16.5); Lymphocyte # 1.51 X10^3/ul (0.83-4.51); Lymphocyte % 27.5 % (19-41); Mean Corp Hgb Conc 33.7 g/dL (32-36); Mean Corpuscular Hgb 32.1 pg (27.0-32.0); Mean Corpuscular Volume 95.2 fL (80-94); Mean Platelet Vol. 10.4 fl (6.2-12.0); Monocyte# 0.54 X10^3/uL; Monocyte% 9.8 % (0-10); NRBC Flagged by Analyzer 0 % (0-5); Neutrophil # 3.22 X10^3/uL (2.7-7.7); Neutrophil % 58.7 % (47-70); Platelet Count 139 K/mm3 (150-450); RBC Distribution Width CV 12.7 % (11.6-14.6); RBC Distribution Width SD 44.3 fl (35.1-43.9); White Blood Count 5.5 K/mm3 (4.4-11.0)
== END | disposition home or self-care (01) ==
LOC: MFPLAB 14:59
PROVIDERS: PCP Family Medicine; Visit Provider Family Medicine
DX: I10 Essential (primary) hypertension (principal); R73.02 Impaired glucose tolerance (oral); E03.9 Hypothyroidism, unspecified
CPT/HCPCS: 36415; 80053; 80061; 81001; 83036; 84439; 84443; 85025

== ENCOUNTER → 2022-09-05 | Outpatient (CLI) | payer MEDICARE, MEDICAID, SELFPAY ==
--- NOTE | 2022-09-05 09:48 | ECHOD_ITS ---
Reason For Study: Ao Root Dilatation Procedure This was a 2D Doppler, Color Flow transthoracic echocardiogram. Exam performed in department. Left Ventricle Normal LV size. The estimated ejection fraction is 55 %. Unable to assess diastolic dysfunction. No regional wall motion abnormalities noted. Right Ventricle Normal RV size. Normal systolic function. Atria Normal left atrium. Normal right atrium. No doppler evidence for ASD. Mitral Valve There is no mitral valve stenosis. No mitral valve insufficiency. Tricuspid Valve There is no tricuspid stenosis. Trivial tricuspid valve insufficiency. Pulmonary artery systolic pressure is 35 mmHg. Aortic Valve Trisinus/trileaflet aortic valve. There is no aortic stenosis. Trivial aortic valve insufficiency. Pulmonic Valve There is no pulmonic valvular stenosis. Trivial pulmonic valve insufficiency. Great Vessels Moderately dilated aortic root. Pericardium/Pleural No pericardial effusion. MMode/2D Measurements & Calculations LVIDd: 4.1 cm IVSd: 1.6 cm Ao root diam: 4.7 cm LVIDs: 3.7 cm LVPWd: 1.2 cm LA dimension: 3.7 cm RVDd: 4.0 cm FS: 10.1 % LAV(MOD-bp): 54.4 ml LA A4 area: 20.5 cm2 RA A4 area: 20.6 cm2 LAV(MOD-bp) Indexed: 26.5 ml/m2 LAV(MOD-sp2): 47.0 ml LAV(MOD-sp4): 56.6 ml Doppler Measurements & Calculations MV E max danny: 103.2 cm/sec MV V2 max: 113.0 cm/sec Ao V2 max: 142.1 cm/sec MV max P.2 mmHg Ao max P.4 mmHg MV V2 mean: 62.6 cm/sec Ao V2 mean: 101.8 cm/sec MV mean P.9 mmHg Ao mean P.9 mmHg MV V2 VTI: 22.2 cm Ao V2 VTI: 22.6 cm AV (velocity ratio): 0.78 AI max danny: 329.0 cm/sec LV V1 max: 99.7 cm/sec PA V2 max: 94.4 cm/sec AI max P.3 mmHg LV V1 max P.2 mmHg PA V2 mean: 58.1 cm/sec LV V1 mean P.1 mmHg AI dec slope: 167.9 cm/sec2 LV V1 mean: 64.2 cm/sec AI P1/2t: 573.9 msec LV V1 VTI: 17.7 cm TR max danny: 288.8 cm/sec TR max P.4 mmHg ECHO/Echo Complete Interpretation Summary The estimated ejection fraction is 55 %. Unable to assess diastolic dysfunction. Trivial aortic valve insufficiency. Moderately dilated aortic root. Ordering Physician: Art Grey Referring Physician: Art Grey Performed By: Gurjit Hudson RCS
--- NOTE | 2022-09-05 10:45 | EKG12_ITS ---
Test Reason : DYSRHYTHMIA Blood Pressure : / mmHG Vent. Rate : 098 BPM Atrial Rate : 138 BPM P-R Int : 000 ms QRS Dur : 134 ms QT Int : 392 ms P-R-T Axes : 000 -12 096 degrees QTc Int : 500 ms Atrial fibrillation Non-specific intra-ventricular conduction block Abnormal ECG Confirmed by MOON DELONG, BRADLEY ([id number]), editor greeting card SHENG SALDAÑA ([id number]) on 09/08/2022 11:49:52 AM Referred By: Art Grey Confirmed By:RENEA MUSTAFA MD
== END | disposition home or self-care (01) ==
PROVIDERS: PCP Family Medicine; Referring Provider Family Medicine; Visit Provider Family Medicine
DX: I77.810 Thoracic aortic ectasia (principal); I48.91 Unspecified atrial fibrillation; R01.1 Cardiac murmur, unspecified
CPT/HCPCS: 93005; 93306

== ENCOUNTER → 2022-09-09 | Outpatient (CLI) | payer MEDICARE, MEDICAID, SELFPAY ==
[2022-09-09 16:06] LABS: Hemoglobin A1c 5.5 % (3.8-5.6)
[2022-09-09 16:08] LABS: Vitamin B12 288 pg/mL (211-911)
[2022-09-09 16:20] LABS: Ferritin 576 ng/mL (26-388); Iron 103 ug/dL (65-175); Iron Binding Capacity,Total 305 ug/dL (250-450)
[2022-09-11 16:09] LABS: Thyroglobulin Antibody < 1.0 IU/mL (0.0-0.9); Thyroid Peroxidase AB 12 IU/mL (0-34)
== END | disposition home or self-care (01) ==
LOC: MFPLAB 12:35
PROVIDERS: PCP Family Medicine; Visit Provider Family Medicine
DX: I10 Essential (primary) hypertension (principal); E03.9 Hypothyroidism, unspecified; R73.02 Impaired glucose tolerance (oral); D64.9 Anemia, unspecified; R79.89 Other specified abnormal findings of blood chemistry
CPT/HCPCS: 36415; 82607; 82728; 83036; 83540; 83550; 86376; 86800

== ENCOUNTER → 2022-11-27 | Outpatient (CLI) | payer MEDICARE, MEDICAID, SELFPAY ==
[2022-11-27 15:52] LABS: Absolute Lymphocyte Count 1.79 X10^3/uL (0.83-4.51); Absolute Neutrophil Count 3.6 X10^3/uL (2.0-7.7); Basophil# 0.07 X10^3/uL; Basophil% 1.1 % (0-1); Eosinophil# 0.17 X10^3/uL; Eosinophils% 2.7 % (0-5); Hematocrit 51.9 % (40-54); Hemoglobin 17.3 g/dL (13.0-16.5); Lymphocyte # 1.79 X10^3/ul (0.83-4.51); Lymphocyte % 28.1 % (19-41); Mean Corp Hgb Conc 33.3 g/dL (32-36); Mean Corpuscular Hgb 32.4 pg (27.0-32.0); Mean Corpuscular Volume 97.2 fL (80-94); Mean Platelet Vol. 10.1 fl (6.2-12.0); Monocyte# 0.73 X10^3/uL; Monocyte% 11.4 % (0-10); NRBC Flagged by Analyzer 0 % (0-5); Neutrophil % 56.4 % (47-70); Platelet Count 170 K/mm3 (150-450); RBC Distribution Width CV 12.9 % (11.6-14.6); RBC Distribution Width SD 46.2 fl (35.1-43.9); Red Blood Count 5.34 M/mm3 (4.6-6.2); White Blood Count 6.4 K/mm3 (4.4-11.0)
[2022-11-27 16:08] LABS: Color, Urine Yellow (Yellow); Glucose, Dipstick Normal (Normal); Ketone-Dipstick 5 mg/dl (Negative); Leukocyte Esterase-Dipstick 25 /ul (Negative); Nitrite-Dipstick Negative (Negative); Occult Blood-Urine 25 /ul (Negative); Protein-Dipstick 100 mg/dl (Negative); Specific Gravity, Urine 1.015 (1.002-1.030); Urine Clarity Sl. Cloudy (Clear); Urine Urobilinogen 4 mg/dl (Normal); Urine pH 6.5 (5.0 - 8.0)
[2022-11-27 16:11] LABS: Urine Bilirubin Dipstick 1 mg/dL (Negative)
[2022-11-27 16:21] LABS: Hemoglobin A1c 5.4 % (3.8-5.6)
[2022-11-27 16:38] LABS: ALB/GLOB Ratio 0.8 RATIO (0.9-2.4); AST(SGOT) 52 U/L (15-37); Alanine Aminotransfer ALT/SGPT 56 U/L (16-61); Albumin, Serum 3.6 g/dL (3.2-5.0); Alkaline Phosphatase 88 U/L (45-117); Anion Gap 8 (5-15); BUN 12 mg/dL (7-18); BUN/Creat Ratio 12.5 RATIO (10-20); Calcium,Total 8.8 mg/dL (8.5-10.1); Chloride 106 mmol/L (98-107); Cholesterol 200 mg/dL (200); Creatinine, Serum 0.96 mg/dL (0.70-1.30); EST Glomerular Filtration Rate 79 mL/min (>60); Est Glom Filt Rate - Afr Amer 96 mL/min (>60); Globulin 4.3 g/dL (2.2-4.2); Glucose 117 mg/dL (74-106); High Density Lipoprotein 32 mg/dL; Magnesium 2.3 mg/dL (1.6-2.6); Potassium 3.6 mmol/L (3.5-5.1); Protein, Total 7.9 g/dL (6.4-8.2); Sodium Level 141 mmol/L (136-145); T4 Free Direct 0.92 ng/dL (0.76-1.46); Thyroid Stim Hormone (TSH) 8.64 uIU/mL (0.358-3.74); Triglycerides 266 mg/dL; Very Low Density Lipoprotein 53 mg/dL (5-40)
== END | disposition home or self-care (01) ==
LOC: MTLAB 13:46
PROVIDERS: PCP Family Medicine; Visit Provider Family Medicine
DX: I48.91 Unspecified atrial fibrillation (principal); I10 Essential (primary) hypertension; E03.8 Other specified hypothyroidism; R73.02 Impaired glucose tolerance (oral)
CPT/HCPCS: 36415; 80053; 80061; 81002; 83036; 83735; 84439; 84443; 85025

== ENCOUNTER 2022-12-07 19:45 | Inpatient (IN) | payer MEDICARE, MEDICAID, SELFPAY ==
[2022-12-07] VITALS (12 sets, daily range): BP systolic 139–180; BP diastolic 85–104; PULSE 77–104; RESP 18–26; TEMP 35.3–36.7; O2SAT 85–95; BMI 29.3
--- NOTE | 2022-12-07 19:54 | EKG12_ITS ---
Test Reason : NEURO Blood Pressure : / mmHG Vent. Rate : 086 BPM Atrial Rate : 086 BPM P-R Int : 212 ms QRS Dur : 138 ms QT Int : 440 ms P-R-T Axes : 092 -27 088 degrees QTc Int : 526 ms Sinus rhythm with 1st degree A-V block with Premature supraventricular complexes Left bundle branch block Abnormal ECG Confirmed by MOON DELONG, BRADLEY ([id number]), purchase request editor SHENG SALDAÑA ([id number]) on 12/11/2022 8:43:03 AM Referred By: Meri Roth Confirmed By:RENEA MUSTAFA MD
--- NOTE | 2022-12-07 19:54 | CT_ITS ---
STUDY: CT BRAIN WITHOUT CONTRAST REASON FOR EXAM: Male, 82 years old. Neuro deficit, acute, stroke suspected RADIATION DOSAGE (If Supplied By Facility): CTDIvol = ( ) mGy, DLP = ( ) mGycm TECHNIQUE: Transaxial CT imaging of the brain was performed without administration of intravenous contrast material. Individualized dose optimization techniques were used for this CT. COMPARISON: No relevant priors. FINDINGS: Normal soft tissue structures. Normal calvarium. There is mild cerebral atrophy with widening of the extra-axial spaces and ventricular dilatation. There are areas of decreased attenuation within the white matter tracts of the supratentorial brain, consistent with microvascular disease changes. There is no intracranial hemorrhage. There are no findings of an acute ischemic infarction. Normal visualized paranasal sinuses. CT/STROKE Brain/Head without Cont IMPRESSION: No acute findings. Microvascular ischemia. Atrophy. Electronically Signed: Melissa Black MD at 20:09 EDT Reading Location ID and State: [id number] / Tel , Service support ,
--- NOTE | 2022-12-07 19:55 | CT_ITS ---
We are attempting to reach an attending provider to discuss findings. An addendum with communication details will be sent when the communication is complete. EXAM: CT ANGIOGRAPHY HEAD AND NECK WITH INTRAVENOUS CONTRAST CLINICAL INDICATION: Neuro deficit, acute, stroke suspected TECHNIQUE: [place] [facility] [place]/head and neck CT angiography protocol performed with intravenous contrast. This CT exam was performed using one or more of the following dose reduction techniques: automated exposure control, adjustment of the mA and/or kV according to patient size, and/or use of iterative reconstruction technique. MIP reconstructed images were created and reviewed. CONTRAST: IV 100mL [id number] COMPARISON: No relevant prior studies available. FINDINGS: HEAD: RIGHT ANTERIOR CEREBRAL ARTERY: Anterior communicating artery is not visualized. No significant stenosis at the visualized segments. No aneurysm. RIGHT MIDDLE CEREBRAL ARTERY: Unremarkable. No significant stenosis at the visualized segments. No aneurysm. RIGHT POSTERIOR CEREBRAL ARTERY: Right posterior communicating artery is present. No occlusion or significant stenosis. No aneurysm. RIGHT INTRACRANIAL INTERNAL CAROTID ARTERY: Atherosclerotic calcification of the right cavernous ICA without stenosis. No dissection or occlusion. RIGHT INTRACRANIAL VERTEBRAL ARTERY: Unremarkable. No significant stenosis. No dissection or occlusion. LEFT ANTERIOR CEREBRAL ARTERY: No aneurysm or stenosis. LEFT MIDDLE CEREBRAL ARTERY: Unremarkable. No significant stenosis at the visualized segments. No aneurysm. LEFT POSTERIOR CEREBRAL ARTERY: Left posterior communicating artery is present. No occlusion or significant stenosis. No aneurysm. LEFT INTRACRANIAL INTERNAL CAROTID ARTERY: Atherosclerotic calcification of the left cavernous ICA without stenosis. No dissection or occlusion. LEFT INTRACRANIAL VERTEBRAL ARTERY: Unremarkable. No significant stenosis. No dissection or occlusion. BASILAR ARTERY: Unremarkable. No significant stenosis. No aneurysm. NECK: RIGHT COMMON CAROTID ARTERY: See below. RIGHT EXTRACRANIAL INTERNAL CAROTID ARTERY: Atherosclerotic calcification of the right carotid bulb of the common carotid artery without stenosis. No dissection or occlusion. RIGHT EXTERNAL CAROTID ARTERY: Unremarkable. No occlusion. RIGHT EXTRACRANIAL VERTEBRAL ARTERY: Right dominant vertebral artery. No significant stenosis. No dissection or occlusion. LEFT COMMON CAROTID ARTERY: See below. LEFT EXTRACRANIAL INTERNAL CAROTID ARTERY: Atherosclerotic calcification of the left carotid bulb of the common carotid artery without stenosis. No dissection or occlusion. LEFT EXTERNAL CAROTID ARTERY: Unremarkable. No occlusion. LEFT EXTRACRANIAL VERTEBRAL ARTERY: Threadlike left vertebral artery. Dissection should be considered. BRACHIOCEPHALIC AND SUBCLAVIAN ARTERIES: Unremarkable as visualized. No occlusion or significant stenosis. LUNG APICES: Unremarkable as visualized. PLEURAL SPACE: Right pleural effusion. Calcified granulomas in the right lung apex. Nodular fibrosis in the left lung apex. Malignancy is not excluded. HEAD and NECK: BONES/JOINTS: Unremarkable. No discrete lytic or blastic abnormalities. SOFT TISSUES: Unremarkable. CAROTID STENOSIS REFERENCE USING NASCET CRITERIA: % ICA stenosis = (1 - narrowest ICA diameter/diameter of distal cervical ICA) x 100. Mild - <50% stenosis. Moderate - 50-69% stenosis. Severe - 70-94% stenosis. Near occlusion - 95-99% stenosis. Occluded - 100% stenosis. CT/STROKE CTA Head AND Neck W/Con IMPRESSION: 1. Threadlike left vertebral artery. Consider dissection in the appropriate clinical setting. 2. Right pleural effusion. 3. Nodular fibrosis in the left lung apex. Malignancy is not excluded. Follow-up is advised. Electronically Signed: Melissa Black MD at 20:32 EDT Reading Location ID and State: [id number] / Tel , Service support ,
--- NOTE | 2022-12-07 19:56 | EDS_ITS ---
HPI History of Present Illness Chief Complaint: Stroke Alert [facility] Medical History (Updated 12/07/22 @ 23:[address] Markell Burt, DO) Alcohol abuse Anxiety and depression BPH (benign prostatic hyperplasia) Bronchiectasis Chronic respiratory failure with hypoxia Essential hypertension Former smoker Gastric reflux History of bladder cancer HTN (hypertension) Incomplete bladder emptying Lung nodule Mixed obstructive and restrictive ventilatory defect PAF (paroxysmal atrial fibrillation) Restless legs Sleep apnea Visual impairment Wears dentures Wears glasses Home Medications amlodipine 10 mg tablet 10 mg PO DAILY 08/07/21 [History Last Taken 08/16/21 10 mg] multivitamin 1 tab PO DAILY 08/07/21 [History Last Taken 08/15/21] finasteride 5 mg tablet 5 mg PO DAILY 08/08/21 [History Last Taken 08/15/21] omeprazole 20 mg capsule,delayed release 20 mg PO DAILY 10/25/21 [History Last Taken Unknown] albuterol sulfate 90 mcg/actuation aerosol inhaler 2 puff inhalation Q4H PRN SOB #8.5 grams 02/25/22 [Rx Last Taken Unknown] tiotropium 2.5 mcg-olodaterol 2.5 mcg/actuation mist for inhalation (Stiolto Respimat) 2 inh inhalation DAILY #3 ea 08/25/22 [Rx Last Taken Unknown] apixaban 5 mg tablet (Eliquis) 5 mg PO DAILY 12/07/22 [History Last Taken Unknown] metoprolol succinate 50 mg tablet,extended release 24 hr 50 mg PO DAILY 12/07/22 [History Last Taken Unknown] Allergy/AdvReac Type Severity Reaction Status Date / Time No Known Allergies Allergy Verified 09/23/22 11:05 Family History Mother Cancer Hypertension EtOH dependence Father Hypertension EtOH dependence Surgical History History of colonoscopy Hx of appendectomy Hx of tonsillectomy Social History (Updated 12/07/22 @ 20:[address] Meri Roth MD) Smoking Status: Former smoker Tobacco: How many years used: 53 Electronic Cigarette Use: not used how long ago did patient quit smoking: quit in 2001 alcohol intake: current alcohol intake frequency: holidays/special occasions only details: Hx 4 EtOH shots q HS. substance use type: does not use EXAM Physical Exam Const Vital Signs: 12/07/22 19:50 12/07/22 19:54 12/07/22 19:54 Temperature 95.6 F L 96.5 F L Temperature Source Temporal Temporal Pulse Rate 104 H 99 Respiratory Rate 24 H 23 H Blood Pressure 139/104 H 180/86 H Blood Pressure Mean 115 117 Pulse Ox 94 85 95 Oxygen Delivery Method Nasal Cannula Room Air Nasal Cannula Oxygen Flow Rate (L/min) 2 4 12/07/22 20:24 12/07/22 20:30 Temperature 98.0 F Temperature Source Oral Pulse Rate 83 84 Respiratory Rate 26 H 26 H Blood Pressure 177/92 H 175/97 H Blood Pressure Mean 120 123 Pulse Ox 94 94 Oxygen Delivery Method Nasal Cannula Nasal Cannula Oxygen Flow Rate (L/min) 4 4 [facility] MDM MDM Narrative Medical decision making narrative: HISTORY OF PRESENT ILLNESS: 82-year-old male here with concern for acute CVA. Per EMS his last known well was Saturday, December 03, 2022 at unknown time. Patient also states he takes Eliquis. Per EMS patient had left upper extremity ataxia, could not smile this is what prompted the stroke team activation. Patient did complain of fever, cough and feeling ill for last 3 to 4 days. He denies any chest pain. REVIEW OF SYSTEMS: Pertinent positives: Ataxia, weakness Pertinent negatives: Chest pain PHYSICAL EXAM: Nursing triage notes reviewed, Vital signs reviewed Constitutional: please see mdm HENT: MMM Eyes: Pupils equal round and reactive to light, Extraocular muscles intact Neck: No stridor, no JVD, full neck ROM Lungs: Diminished throughout right lung kelley no wheezing or rales. No increased work of breathing, no conversational dyspnea, no accessory muscle use, no nasal flaring. No respiratory distress noted Heart: Regular rate and rhythm, No murmurs, No rubs and No gallops, 2+ distal pulses (radial, femoral, posterior tibial) in all extremities Abdomen: Soft, there is no tenderness, rigidity, rebound or guarding, no obvious peritoneal signs, no palpable pulsatile abdominal masses, no auscultated ab dominal bruit : No CVAT Extremities: No edema Neuro: Alert, follows commands, has some slight dysarthria, right upper extremity ataxia, his right lower extremity decree sensation. Initial NIH of 5. Skin: No rash or lesions noted MEDICAL DECISION MAKING: Chief Complaint: Stroke alert External records reviewed: Recently diagnosed with new onset atrial fibrillation Factors affecting care: Atrial fibrillation, hypertension, alcohol abuse, COPD on 2 L home oxygen Social determinants of health: History of alcohol abuse History obtained from others: EMS Consults: Internal medicine ALL IMAGES (IF OBTAINED) HAVE BEEN PERSONALLY REVIEWED AND INTERPRETED BY MYSELF. EKG with normal sinus rhythm, left ax deviation, left bundle branch block, no obvious STEMI, no obvious atrial fibrillation MDM Narrative: Patient was initially hemodynamically stable, afebrile, nontoxic-appearing. Initial NIH of 5 (right-sided facial droop, dysarthria, right extremity times, decree sensation right lower extremity, aphasia). This concerning for intracranial abnormality such as acute CVA, ICH, focal seizure. Patient was a prehospital stroke alert. As he arrived in the ED and after further history stroke alert was downgraded/canceled given last known well time greater than 4.5 (not a TNK candidate), and symptoms greater than 24 hours (not a thrombectomy candidate). CT scanner was open and able to accept the patient he was taken urgently for CT scan of the head and a CT of the head and neck. Also obtained additional labs, chest x-ray to further elucidate the etiology of the patient's complaints. During the patient ED course he was noted to be hypoxic. He did complain of fever, and cough. Denies any chest pain at this time. Chest x-ray showed evidence of pneumonia. Given Zosyn for broad-spectrum coverage. Given concern for acute CVA pneumonia and increasing oxygen requirement patient require inpatient mission. Discussed with Dr. Roth. The patient and/or family, caregivers express understanding. The patient and/or family, caregivers agrees with the plan. Shared decision making: I will have a discussion with the patient and or visitors regarding risk/benefits of further testing or admission. They will be made aware of of the risk/benefits inherent in this decision they will be given the opportunity to voice understanding. Total critical care time today provided was at least 60 minutes. This excludes separately billable procedures. Critical care time (if documented) is secondary to the patient having high probability of clinically significant/life threaten ing deterioration in the patient's condition which required my urgent intervention. Lab Data Attestation: I reviewed the patient's lab results. Lab results narrative: CBC without leukocytosis, severe anemia, mild thrombocytopenia. No coagulopathy noted BMP with hypokalemia, no significant anion gap, no acute kidney injury Troponin is negative, no evidence of myocardial ischemia Labs: Laboratory Results - last 24 hr 12/07/22 19:50 WBC 4.8 RBC 4.60 Hgb 15.1 Hct 43.8 MCV 95.2 H MCH 32.8 H MCHC 34.5 RDW Std Deviation 45.2 H RDW Coeff of [place] 13.0 Plt Count 138 L MPV 9.9 Immature Gran % (Auto) 0.600 Neut % (Auto) 51.7 Lymph % (Auto) 24.5 [place] % (Auto) 17.6 H Eos % (Auto) 5.2 H Baso % (Auto) 0.4 Absolute Neuts (auto) 2.5 Absolute Lymphs (auto) 1.18 Nucleated RBC % 0 PT 14.8 INR 1.2 APTT 35.5 Sodium 141 Potassium 2.9 L Chloride 107 Carbon Dioxide 29.0 Anion Gap 5 BUN 18 Creatinine 0.90 Est GFR (MDRD) Af Amer 104 Est GFR (MDRD) Non-Af 86 BUN/Creatinine Ratio 20.1 H Glucose 102 Calcium 7.9 L Troponin I High Sens 17 Radiography Chest X-Ray - ED: Read by ED Physician Diagnostic Testing: Clinical Impression(s) from Imaging Studies Brain CT 12/07/22 19:54 IMPRESSION: No acute findings. Microvascular ischemia. Atrophy. Electronically Signed: Melissa Black MD at 20:09 EDT Reading Location ID and State: [place] / Tel , Service support , ADDENDUM: 12/07/222047 IMPRESSION: No acute findings. Microvascular ischemia. Atrophy. N.B. : The above Results were Read Back by Melissa Black MD to Markell Burt DO, and understanding confirmed on 12/07/2022 20:41:39 (ET). Electronically Signed: Melissa Black MD at 20:09 EDT Reading Location ID and State: [place] / Tel , Service support , Head/Neck CTA 12/07/22 19:55 IMPRESSION: 1. Threadlike left vertebral artery. Consider dissection in the appropriate clinical setting. 2. Right pleural effusion. 3. Nodular fibrosis in the left lung apex. Malignancy is not excluded. Follow-up is advised. Electronically Signed: Melissa Black MD at 20:32 EDT Reading Location ID and State: [id number] / Tel , Service support , ADDENDUM: 12/07/222047 IMPRESSION: 1. Threadlike left vertebral artery. Consider dissection in the appropriate clinical setting. 2. Right pleural effusion. 3. Nodular fibrosis in the left lung apex. Malignancy is not excluded. Follow-up is advised. N.B. : The above Results were Read Back by Melissa Black MD to Markell Burt DO, and understanding confirmed on 12/07/2022 20:41:31 (ET). Electronically Signed: Melissa Black MD at 20:32 EDT Reading Location ID and State: [id number] / Tel , Service support , Chest x-ray by my read shows evidence of right lower lobe pneumonia Discharge Plan Triage Chief Complaint: Stroke Alert ED Provider: Markell Burt Dx/Rx/DC Orders Clinical Impression: HX: anticoagulation, Acute cerebrovascular accident (CVA), Personal history of atrial fibrillation, Pneumonia Prescriptions: No Action amlodipine 10 mg tablet 10 mg PO DAILY multivitamin Tablet 1 tab PO DAILY finasteride 5 mg tablet 5 mg PO DAILY omeprazole 20 mg capsule,delayed release(DR/EC) 20 mg PO DAILY albuterol sulfate 90 mcg/actuation HFA aerosol inhaler 2 puff inhalation Q4H PRN (Reason: SOB) Qty: 8.5 1RF Stiolto Respimat 2.5-2.5 mcg/actuation mist 2 inh inhalation DAILY Qty: 3 3RF Eliquis 5 mg tablet 5 mg PO DAILY Patient Comments: PT REPORTS HE TAKES IT ONCE DAILY metoprolol succinate 50 mg tablet extended release 24 hr 50 mg PO DAILY Patient Comments: take 1 tablet by mouth once daily Primary Care Provider: Art Grey Referrals: Art Grey MD [Primary Care Provider] - Disposition Disposition: Acute Care [facility]
--- NOTE | 2022-12-07 20:03 | ED.RN ---
PER DR GOLD NO NEED TO CALL [facility] FOR STOKE ALERT BECAUSE PT'S SYMPTOMS STARTED 4 DAYS AGO. PT REPORTS HE CANNOT REMEMBER MUCH ON THURSDAY.
[2022-12-07 20:04] LABS: Absolute Lymphocyte Count 1.18 X10^3/uL (0.83-4.51); Absolute Neutrophil Count 2.5 X10^3/uL (2.0-7.7); Basophil# 0.02 X10^3/uL; Basophil% 0.4 % (0-1); Eosinophil# 0.25 X10^3/uL; Eosinophils% 5.2 % (0-5); Hematocrit 43.8 % (40-54); Hemoglobin 15.1 g/dL (13.0-16.5); Lymphocyte # 1.18 X10^3/ul (0.83-4.51); Lymphocyte % 24.5 % (19-41); Mean Corp Hgb Conc 34.5 g/dL (32-36); Mean Corpuscular Hgb 32.8 pg (27.0-32.0); Mean Corpuscular Volume 95.2 fL (80-94); Mean Platelet Vol. 9.9 fl (6.2-12.0); Monocyte# 0.85 X10^3/uL; Monocyte% 17.6 % (0-10); NRBC Flagged by Analyzer 0 % (0-5); Neutrophil # 2.49 X10^3/uL (2.7-7.7); Neutrophil % 51.7 % (47-70); Platelet Count 138 K/mm3 (150-450); RBC Distribution Width SD 45.2 fl (35.1-43.9); White Blood Count 4.8 K/mm3 (4.4-11.0)
[2022-12-07 20:11] LABS: International Normalized Ratio 1.2; Prothrombin Time (Protime)PT. 14.8 SECONDS (11.7-14.9)
[2022-12-07 20:12] LABS: Partial Thromboplast Time 35.5 Seconds (24.1-36.2)
[2022-12-07 20:20] LABS: Anion Gap 5 (5-15); BUN 18 mg/dL (7-18); BUN/Creat Ratio 20.1 RATIO (10-20); Calcium,Total 7.9 mg/dL (8.5-10.1); Chloride 107 mmol/L (98-107); EST Glomerular Filtration Rate 86 mL/min (>60); Est Glom Filt Rate - Afr Amer 104 mL/min (>60); Glucose 102 mg/dL (74-106); Potassium 2.9 mmol/L (3.5-5.1); Sodium Level 141 mmol/L (136-145); Troponin-I HS 17 pg/mL (3.0-78.0)
--- NOTE | 2022-12-07 20:49 | RAD_ITS ---
EXAM: XR CHEST, 1 VIEW CLINICAL INDICATION: Neuro deficit, acute, stroke suspected TECHNIQUE: Frontal view of the chest. COMPARISON: 06/10/2021 FINDINGS: LUNGS AND PLEURAL SPACES: There is right lower lobe airspace disease compatible with pneumonia. There is a small right-sided effusion. There is minimal left basilar airspace disease. No pneumothorax. HEART: Unremarkable. Cardiac silhouette not enlarged. MEDIASTINUM: Central airways and mediastinal contour are unremarkable. BONES/JOINTS: See above. SOFT TISSUES: Unremarkable. RAD/Chest 1 View IMPRESSION: Right lower lobe opacity compatible with pneumonia with small right-sided effusion. There is minimal left basilar airspace disease. Electronically Signed: Dillan Handy MD at 21:28 EDT ,
--- NOTE | 2022-12-07 22:22 | HP.PCM.HOS_ITS ---
HPI - General General Date of Admission: 12/07/22 Date of Service: 12/07/22 Chief Complaint: Dysarthria, right upper extremity ataxia, right lower extremity sensation alteration. HPI Narrative The patient is an 82 y/o M w/ PMHx: GERD, Chronic thrombocytopenia, PAF on eliquis (more recent diagnosis 11/2022 per [facility] records), Chronic [employer] D/Bronchiectasis with Chronic Hypoxic Respiratory failure (3L NC), HTN, HLD, ENEDINA, RLS, Former tobacco use, Anxiety and Depression, Heavier EtOH use, Hx Bladder CA s/p resection who presents to the [facility] ED on 12/07/22 with history of last known well December 03 at unclear time with onset of left upper extremity ataxia, dysarthria as well as decree sensation to the right lower extremity and specifically per patient difficulty smiling which eventually prompted him to call EMS for evaluation. In the ED NIH stroke scale 3 for slight dysarthria, right upper extremity ataxia as well as right lower extremity decreased sensation. Stroke alert called in the field as patient on route secondary to symptom history; however, given symptoms greater than 24 hours with low NIH score and not a thrombectomy candidate stroke alert was downgraded/canceled. Patient reports recent prior cough, dyspnea worse with exertion and subjective fever ongoing since the Thursday prior. Work-up in the ED included T95.6, heart rate 104, BP 139/104, respiratory rate 24, 94% on 2 L nasal cannula--> most current BP 175/97, respiratory rate 26, pulse ox 94% on 4 L nasal cannula, respiratory rate 26, CBC with WBC 4.8, hemoglobin 15.1, platelet 138 without marked shift, coags unremarkable, BMP with potassium 2.9 and calcium 7.9 otherwise not marked appearing, troponin 17, CT brain with no acute intracranial findings with microvascular ischemia and atrophy, CTA head and neck with a threadlike vertebral artery with possible concern for dissection, right pleural effusion, nodular fibrosis in the left lung apex with inability to exclude malignancy with recommended follow-up, CXR with right lower lobe opacity concerning for pneumonia with a right-sided small effusion as well as minimal left but basilar airspace disease, EKG with sinus rhythm with no acute evidence of ischemia. In the ED patient administered IV zosyn. Patient in the ED without any vertiginous symptoms given noted read on the CT of threadlike vertebral artery and ED physician discussed further with radiology and noted less concern for dissection especially since stroke symptoms did not match clinically. [facility] Medical History Alcohol abuse Anxiety and depression BPH (benign prostatic hyperplasia) Bronchiectasis Chronic respiratory failure with hypoxia Essential hypertension Former smoker Gastric reflux History of bladder cancer HTN (hypertension) Incomplete bladder emptying Lung nodule Mixed obstructive and restrictive ventilatory defect PAF (paroxysmal atrial fibrillation) Restless legs Sleep apnea Visual impairment Wears dentures Wears glasses Home Medications amlodipine 10 mg tablet 10 mg PO DAILY 08/07/21 [History Last Taken 08/16/21 10 mg] multivitamin 1 tab PO DAILY 08/07/21 [History Last Taken 08/15/21] finasteride 5 mg tablet 5 mg PO DAILY 08/08/21 [History Last Taken 08/15/21] omeprazole 20 mg capsule,delayed release 20 mg PO DAILY 10/25/21 [History Last Taken Unknown] albuterol sulfate 90 mcg/actuation aerosol inhaler 2 puff inhalation Q4H PRN SOB #8.5 grams 02/25/22 [Rx Last Taken Unknown] tiotropium 2.5 mcg-olodaterol 2.5 mcg/actuation mist for inhalation (Stiolto Respimat) 2 inh inhalation DAILY #3 ea 08/25/22 [Rx Last Taken Unknown] apixaban 5 mg tablet (Eliquis) 5 mg PO DAILY 12/07/22 [History Last Taken Unknown] metoprolol succinate 50 mg tablet,extended release 24 hr 50 mg PO DAILY 12/07/22 [History Last Taken Unknown] Allergy/AdvReac Type Severity Reaction Status Date / Time No Known Allergies Allergy Verified 09/23/22 11:05 Family History Mother Cancer Hypertension EtOH dependence Father Hypertension EtOH dependence Surgical History History of colonoscopy Hx of appendectomy Hx of tonsillectomy Social History Smoking Status: Former smoker Tobacco: How many years used: 53 Electronic Cigarette Use: not used how long ago did patient quit smoking: quit in 2001 alcohol intake: current alcohol intake frequency: holidays/special occasions only details: Hx 4 EtOH shots q HS. substance use type: does not use ROS ROS Narrative Admission Review of Systems: CONSTITUTIONAL: No weight loss, + subjective fever, chills, weakness or fatigue. HEENT: Eyes: No visual loss, blurred vision, double vision or yellow sclerae. Ears, Nose, Throat: No hearing loss, sneezing, congestion, runny nose or sore throat. SKIN: No rash or itching, lesions, wounds. CARDIOVASCULAR: No chest pain, chest pressure or chest discomfort, palpitations, edema, orthopnea, syncopal events. RESPIRATORY: + shortness of breath, cough without marked sputum. No wheezing, hemoptysis. GASTROINTESTINAL: No anorexia, nausea, vomiting or diarrhea, abdominal pain, melena, BRBPR. GENITOURINARY: + Urinary frequency with BPH. No dysuria, urgency or retention. NEUROLOGICAL: + Mild dysarthria, right upper extremity ataxic, right extremity altered sensation. No headache, dizziness, syncope, paralysis, change in bowel or bladder control, seizure. MUSCULOSKELETAL: + muscle, back pain, joint pain or stiffness. HEMATOLOGIC: + Easy bleeding or bruising. LYMPHATICS: No enlarged nodes. No history of splenectomy. PSYCHIATRIC: No history of depression or anxiety. ENDOCRINOLOGIC: No reports of sweating, cold or heat intolerance. No polyuria or polydipsia. ALLERGIES: No history of asthma, hives, eczema or rhinitis. Vital Signs Vital Signs Vital Signs: 12/07/22 19:50 12/07/22 19:54 12/07/22 19:54 Temperature 95.6 F L 96.5 F L Temperature Source Temporal Temporal Pulse Rate 104 H 99 Respiratory Rate 24 H 23 H Blood Pressure 139/104 H 180/86 H Blood Pressure Mean 115 117 Pulse Ox 94 85 95 Oxygen Delivery Method Nasal Cannula Room Air Nasal Cannula Oxygen Flow Rate (L/min) 2 4 12/07/22 20:24 12/07/22 20:30 12/07/22 21:00 Temperature 98.0 F Temperature Source Oral Pulse Rate 83 84 80 Respiratory Rate 26 H 26 H 25 H Blood Pressure 177/92 H 175/97 H 159/101 H Blood Pressure Mean 120 123 120 Pulse Ox 94 94 94 Oxygen Delivery Method Nasal Cannula Nasal Cannula Nasal Cannula Oxygen Flow Rate (L/min) 4 4 4 12/07/22 20:46 Temperature Temperature Source Pulse Rate 80 Respiratory Rate 26 H Blood Pressure 156/96 H Blood Pressure Mean 116 Pulse Ox 93 Oxygen Delivery Method Nasal Cannula Oxygen Flow Rate (L/min) 4 Weight Weight: 198 lb 13.711 oz Body Mass Index (BMI) 29.3 Physical Exam Narrative Physical Examination: General: Awake, alert, oriented x 3 and cooperative, seated upright in the ED bed, fatigued but well-appearing. Skin: Normal color, normal turgor, no icterus, no cyanosis except occasional staged ecchymoses, abrasion. HEENT: AT/NC, EOMI, PERRLA, mildly dry MM, no carotid bruits or JVD noted, difficult to get patient to smile but following lengthy discussion he is able to raise both sides. Lungs: Diminished, greater bases, mildly increased respiratory rate but no distress, no rales, ronchi or wheezing. Heart: Mildly tachycardic with regular rhythm; no gallop, rub audible. Abdomen: Soft, obese, NTTP, ND, hyperactive BS, no HSM. Extremities: No cyanosis, clubbing, or edema. Neurological: Patient awake, alert, oriented as noted, cognitive function currently appears baseline intact; pupils equally reactive to light and accommodation, cranial nerves grossly normal except difficulty with smiling however eventually able to have them raise both sides, moving all 4 extremities, evidence of right upper extremity ataxia, unremarkable LUE FTN, HTS appropriate, subjective RLE paresthesias, strength moderately to severely globally decrease secondary to acute presentation and underlying comorbidities. Psychiatric: Affect appears flat, fatigued, no acute evidence of depressive or anxiety feelings. Results Lab / Micro Data 12/07/22 19:50 12/07/22 19:50 Labs: Laboratory Results - last 24 hr 12/07/22 19:50: WBC 4.8, RBC 4.60, Hgb 15.1, Hct 43.8, MCV 95.2 H, MCH 32.8 H, MCHC 34.5, RDW Std Deviation 45.2 H, RDW Coeff of Glenn 13.0, Plt Count 138 L, MPV 9.9, Immature Gran % (Auto) 0.600, Neut % (Auto) 51.7, Lymph % (Auto) 24.5, Prowers % (Auto) 17.6 H, Eos % (Auto) 5.2 H, Baso % (Auto) 0.4, Absolute Neuts (auto) 2.5, Absolute Lymphs (auto) 1.18, Nucleated RBC % 0, PT 14.8, INR 1.2, APTT 35.5, Sodium 141, Potassium 2.9 L, Chloride 107, Carbon Dioxide 29.0, Anion Gap 5, BUN 18, Creatinine 0.90, Est GFR (MDRD) Af Amer 104, Est GFR (MDRD) Non-Af 86, BUN/Creatinine Ratio 20.1 H, Glucose 102, Calcium 7.9 L, Troponin I High Sens [address] 12/07/22 19:54 IMPRESSION: No acute findings. Microvascular ischemia. Atrophy. Electronically Signed: Melissa Black MD at 20:09 EDT Reading Location ID and State: Emy Ramirez MD Tel , Service support , ADDENDUM: 12/07/222047 IMPRESSION: No acute findings. Microvascular ischemia. Atrophy. N.B. : The above Results were Read Back by Melissa Black MD to Markell Burt DO, and understanding confirmed on 12/07/2022 20:41:39 (ET). Electronically Signed: Melissa Black MD at 20:09 EDT Reading Location ID and State: Emy Ramirez MD Tel , Service support , Head/Neck CTA 12/07/22 19:55 IMPRESSION: 1. Threadlike left vertebral artery. Consider dissection in the appropriate clinical setting. 2. Right pleural effusion. 3. Nodular fibrosis in the left lung apex. Malignancy is not excluded. Follow-up is advised. Electronically Signed: Melissa Black MD at 20:32 EDT Reading Location ID and State: Emy Ramirez MD Tel , Service support , ADDENDUM: 12/07/222047 IMPRESSION: 1. Threadlike left vertebral artery. Consider dissection in the appropriate clinical setting. 2. Right pleural effusion. 3. Nodular fibrosis in the left lung apex. Malignancy is not excluded. Follow-up is advised. N.B. : The above Results were Read Back by Melissa Black MD to Markell Burt DO, and understanding confirmed on 12/07/2022 20:41:31 (ET). Electronically Signed: Melissa Black MD at 20:32 EDT , Chest X-Ray 12/07/22 20:49 IMPRESSION: Right lower lobe opacity compatible with pneumonia with small right-sided effusion. There is minimal left basilar airspace disease. Electronically Signed: Dillan Handy MD at 21:28 EDT , Assessment & Plan Assessment/Plan (1) CVA (cerebral vascular accident): PLAN: Plan The patient is an 82 y/o M w/ PMHx: GERD, Chronic thrombocytopenia, PAF on eliquis (more recent diagnosis 11/2022 per [facility] records), Chronic COPD/Bronchiectasis with Chronic Hypoxic Respiratory failure (3L NC), HTN, HLD, ENEDINA, RLS, Former tobacco use, Anxiety and Depression, Heavier EtOH use, Hx Bladder CA s/p resection who presents to the [facility] ED on 12/07/22 with history of last known well December 03 at unclear time with onset of left upper extremity ataxia, dysarthria as well as decree sensation to the right lower extremity and specifically per patient difficulty smiling which eventually prompted him to call EMS for evaluation. #1. Dysarthria, right upper extremity ataxia, right lower extremity sensation alteration concerning for CVA: Will admit to PCU, will obtain MRI Brain, recent echocardiogram 09/05/2022 with EF 55%, trivial XIANG, moderately dilated aortic root but no obvious bubble study but given significant advanced age will defer repeat with bubble at this time especially given recent A-fib diagnosis which certainly is patient's risk for acute stroke with only recent start on anticoagulant therapy, PT/OT/Speech/Nutrition evaluation per protocol. Will allow permissive HTN except for beta-hilary if necessary given PAF diagnosis, maintain on asa, at least moderate dose statin w/ AM FLP, fall precautions. Mag, TSH, FLP, HgbA1c requested. Maintain on fall and aspiration precautions. Once work-up obtained low threshold to obtain Neurology consultation. #2. Right lower lobe pneumonia, possible aspiration pneumonia related with #1 complicated by #7: CXR in the ED w/ right lower lobe pneumonia. Will maintain on oxygen with wean as tolerated to room air, continue ATC budesonide, PRN albuterol, maintained on IV Zosyn given aspiration concerns, HOB, IS parameters w/ pending sputum cultures, full respiratory panel, COVID PCR and urine antigens, speech therapy consulted as noted. #3. Hypokalemia: Admission K+ 2.9, magnesium level requested, supplementation given, repeat level in AM. #4. PAF: EKG upon presentation with sinus rhythm with no acute evidence of ischemia. Will continue recently initiated Eliquis regimen with noted initial fill 11/17/2022 with recent diagnosis per PCP outpatient, noted to have been prescribed also 11/12/2022 metoprolol succinate ER 50 mg tablet 1 tablet daily, clarifying usage. Given permissive hypertension although prolonged timeline would certainly consider continuing metoprolol but holding all other hypertensive regimen for permissive hypertension given #1. #5. Hypertension: We will maintain permissive hypertension given presentation with resumption of regimen once appropriate, as needed IV regimen per stroke protocol in the interim. #6. Hyperlipidemia: Not on regimen, adding at least low to moderate dose statin given presentation, FLP in AM. #7. Chronic COPD/bronchiectasis with chronic hypoxic respiratory failure (3L NC): Will maintain on home oxygen supplementation, will temporally hold home inhalers in the interim will continue ATC budesonide, PRN albuterol, HOB, IS parameters. #8. Chronic thrombocytopenia, unclear etiology: Admission platelet 138, baseline prior appears similar 130-140 range, will continue to trend. #9. Heavier EtOH use: Patient notes routine consumption of potentially 4 double shots in a day period potentially several times per week. Difficult from discussions to ascertain how much he drinks weekly. To be cautious however, will maintain on CIWA protocol, MVI, thiamine and folic acid. Mag and phos pending. CM consulted for concern for substance abuse. Prior chart records noted 4 shots daily. #10. Anxiety and depression: In the past patient had noted to been on sertraline however recently there was a prescription filled for mirtazapine however there is no recent fills thus unclear if patient still on these medications, clarifying and will continue if appropriate but from current list appears to have stopped these medications. #11. Former tobacco use: Encourage continued tobacco cessation. #12. BPH: We will continue patient home finasteride regimen. #13. History of bladder cancer: Status postresection, considered in remission. #14. GERD: We will continue patient on PPI. #15. DVT prophylaxis: We will continue patient home recently initiated Eliquis regimen however if fails bedside swallow would transition to therapeutic Lovenox in the interim. #16. CODE status: Patient KENNETH is his granddaughter who is present and living will is currently in place. Full Code. Charges/Coding Visit Charges Inpatient E&M: 00831 Init Hosp L3
[2022-12-07 23:48] LABS: AST(SGOT) 26 U/L (15-37); Alanine Aminotransfer ALT/SGPT 29 U/L (16-61); Albumin, Serum 2.6 g/dL (3.2-5.0); Alkaline Phosphatase 81 U/L (45-117); Bilirubin, Direct 0.37 mg/dL (0.00-0.30); Globulin 3.6 g/dL (2.2-4.2); Phosphorus 2.5 mg/dL (2.5-4.9); Protein, Total 6.2 g/dL (6.4-8.2)
[2022-12-08] VITALS (17 sets, daily range): BP systolic 127–160; BP diastolic 81–106; PULSE 74–104; RESP 16–25; TEMP 36.3–36.7; O2SAT 90–96; BMI 27.8; BMI 28.5
--- NOTE | 2022-12-08 01:15 | MRI_ITS ---
HISTORY: CVA, L ARM ATAXIA, WEAKNESS. TECHNIQUE: Multiplanar and multisequence MR images of the brain were obtained without contrast. 292 images. COMPARISON: CT prior day. FINDINGS: BRAIN PARENCHYMA: Multiple foci and small zones of increased T2 FLAIR signal in the bilateral cerebral white matter. No abnormal focus of restricted diffusion. No acute intracranial hemorrhage identified. CSF SPACES: Generalized volume loss. No significant midline shift or other mass effect.No extra-axial fluid collection. VASCULAR SYSTEM: Major intracranial flow voids are maintained. PARANASAL SINUSES AND MASTOID AIR CELLS: No significant air fluid levels. ORBITS: Bilateral lens resections. MRI/Brain without Contrast IMPRESSION: No evidence for acute infarct. Chronic involutional and white matter changes. Electronically Signed: Miesha Cadena MD at 11:40 EDT ,
[2022-12-08] MEDS: Potassium Chloride Oral Soln 20 MEQ/15 ML UDC 40 MEQ PO (01:35)
[2022-12-08] MEDS: 0.9% Normal Saline 1,000 ML 100 ML IV (01:36)
[2022-12-08] MEDS: 0.9% Saline Lock 10 ML Syringe IV ×2 (01:41→21:34)
[2022-12-08 04:27] LABS: M R Staph aureus DNA By PCR Negative (Negative); Probe Check PASS
[2022-12-08 06:31] LABS: Absolute Lymphocyte Count 0.83 X10^3/uL (0.83-4.51); Basophil# 0.04 X10^3/uL; Basophil% 0.8 % (0-1); Eosinophil# 0.22 X10^3/uL; Eosinophils% 4.5 % (0-5); Hematocrit 42.7 % (40-54); Hemoglobin 14.3 g/dL (13.0-16.5); Lymphocyte # 0.83 X10^3/ul (0.83-4.51); Lymphocyte % 17.1 % (19-41); Mean Corp Hgb Conc 33.5 g/dL (32-36); Mean Corpuscular Hgb 32.4 pg (27.0-32.0); Mean Corpuscular Volume 96.8 fL (80-94); Mean Platelet Vol. 9.7 fl (6.2-12.0); Monocyte# 0.71 X10^3/uL; Monocyte% 14.6 % (0-10); NRBC Flagged by Analyzer 0 % (0-5); Neutrophil # 3.01 X10^3/uL (2.7-7.7); Neutrophil % 62.2 % (47-70); Platelet Count 128 K/mm3 (150-450); RBC Distribution Width CV 12.9 % (11.6-14.6); RBC Distribution Width SD 46.4 fl (35.1-43.9); Red Blood Count 4.41 M/mm3 (4.6-6.2); White Blood Count 4.9 K/mm3 (4.4-11.0)
[2022-12-08 07:05] LABS: ALB/GLOB Ratio 0.7 RATIO (0.9-2.4); AST(SGOT) 20 U/L (15-37); Alanine Aminotransfer ALT/SGPT 26 U/L (16-61); Albumin, Serum 2.4 g/dL (3.2-5.0); Alkaline Phosphatase 75 U/L (45-117); Anion Gap 1 (5-15); BUN 13 mg/dL (7-18); BUN/Creat Ratio 15.3 RATIO (10-20); Calcium,Total 7.7 mg/dL (8.5-10.1); Chloride 110 mmol/L (98-107); Cholesterol 167 mg/dL (200); Creatinine, Serum 0.85 mg/dL (0.70-1.30); EST Glomerular Filtration Rate 92 mL/min (>60); Est Glom Filt Rate - Afr Amer 111 mL/min (>60); Estimated Creatinine Clearance 64.69 ml/min; Globulin 3.5 g/dL (2.2-4.2); Glucose 112 mg/dL (74-106); High Density Lipoprotein 25 mg/dL; Potassium 3.8 mmol/L (3.5-5.1); Protein, Total 5.9 g/dL (6.4-8.2); Sodium Level 140 mmol/L (136-145); Triglycerides 150 mg/dL; Very Low Density Lipoprotein 30 mg/dL (5-40)
[2022-12-08] MEDS: Budesonide Respules 0.5 MG/2 ML AMPUL.NEB. INHALATION ×2 (07:08→20:02)
[2022-12-08 07:39] LABS: Hemoglobin A1c 5.5 % (3.8-5.6)
--- NOTE | 2022-12-08 08:47 | PN.HOSP_ITS ---
Reason for Visit Reason for Visit: Diagnoses Cerebral infarction, unspecified (12/07/22) Subjective Subjective Feels better. 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 Objective Data Objective Data Vital Signs: Vital Signs Temp Pulse Resp BP Pulse Ox O2 Del Method O2 Flow Rate 36.3 C L 90 20 H 152/89 H 96 Nasal Cannula 2 12/08/22 02:14 12/08/22 07:20 12/08/22 07:20 12/08/22 02:14 12/08/22 07:08 12/08/22 07:08 12/08/22 07:08 Oxygen Flow Rate (L/min) 2 Oxygen Delivery Method Nasal Cannula Weight: 85.7 kg Body Mass Index (BMI) 27.8 Intake & Output: Intake and Output for Last 24 Hours 12/06/22 12/07/22 12/08/22 23:59 23:59 23:59 Intake Total 50 / 50 Balance 50 / 50 Lab / Micro Data 12/08/22 05:55 12/08/22 05:55 Labs: Laboratory Results - last 24 hr 12/07/22 19:50: WBC 4.8, RBC 4.60, Hgb 15.1, Hct 43.8, MCV 95.2 H, MCH 32.8 H, MCHC 34.5, RDW Std Deviation 45.2 H, RDW Coeff of Glenn 13.0, Plt Count 138 L, MPV 9.9, Immature Gran % (Auto) 0.600, Neut % (Auto) 51.7, Lymph % (Auto) 24.5, [place] % (Auto) 17.6 H, Eos % (Auto) 5.2 H, Baso % (Auto) 0.4, Absolute Neuts (auto) 2.5, Absolute Lymphs (auto) 1.18, Nucleated RBC % 0, PT 14.8, INR 1.2, APTT 35.5, Sodium 141, Potassium 2.9 L, Chloride 107, Carbon Dioxide 29.0, Anion Gap 5, BUN 18, Creatinine 0.90, Est GFR (MDRD) Af Amer 104, Est GFR (MDRD) Non-Af 86, BUN/Creatinine Ratio 20.1 H, Glucose 102, Calcium 7.9 L, Phosphorus 2.5, Magnesium 2.0, Total Bilirubin 0.80, Direct Bilirubin 0.37 H, AST 26, ALT 29, Alkaline Phosphatase 81, Troponin I High Sens 17, Total Protein 6.2 L, Albumin 2.6 L, Globulin 3.6 12/08/22 02:16: MRSA (PCR) Negative 12/08/22 05:55: WBC 4.9, RBC 4.41 L, Hgb 14.3, Hct 42.7, MCV 96.8 H, MCH 32.4 H, MCHC 33.5, RDW Std Deviation 46.4 H, RDW Coeff of Glenn 12.9, Plt Count 128 L, MPV 9.7, Immature Gran % (Auto) 0.800, Neut % (Auto) 62.2, Lymph % (Auto) 17.1 L, [place] % (Auto) 14.6 H, Eos % (Auto) 4.5, Baso % (Auto) 0.8, Absolute Neuts (auto) 3.0, Absolute Lymphs (auto) 0.83, Nucleated RBC % 0, Sodium 140, Potassium 3.8, Chloride 110 H, Carbon Dioxide 29.0, Anion Gap 1 L, BUN 13, Creatinine 0.85, Estim Creat Clear Calc 64.69, Est GFR (MDRD) Af Amer 111, Est GFR (MDRD) Non-Af 92, BUN/Creatinine Ratio 15.3, Glucose 112 H, Hemoglobin A1c 5.5, Calcium 7.7 L, Total Bilirubin 0.90, AST 20, ALT 26, Alkaline Phosphatase 75, Total Protein 5.9 L, Albumin 2.4 L, Globulin 3.5, Albumin/Globulin Ratio 0.7 L, Triglycerides 150, Cholesterol 167, LDL Cholesterol 112, VLDL Cholesterol 30, HDL Cholesterol 25 L, TSH 2.80 Micro: Microbiology 12/08/22 01:28 Mucosa - Nasopharyngeal Respiratory Panel (PCR) - Final 12/08/22 04:15 Urine, Clean Catch Streptococcus pneumoniae Antigen (M - Fin al 12/08/22 04:15 Urine, Clean Catch Legionella Antigen - Final Radiography Diagnostic Testing: Radiology Impression Brain CT 12/07/22 19:54 IMPRESSION: No acute findings. Microvascular ischemia. Atrophy. Electronically Signed: Melissa Black MD at 20:09 EDT Reading Location ID and State: [id number] / Tel , Service support , ADDENDUM: 12/07/222047 IMPRESSION: No acute findings. Microvascular ischemia. Atrophy. N.B. : The above Results were Read Back by Melissa Black MD to Markell Burt DO, and understanding confirmed on 12/07/2022 20:41:39 (ET). Electronically Signed: Melissa Black MD at 20:09 EDT Reading Location ID and State: [id number] / Tel , Service support , Head/Neck CTA 12/07/22 19:55 IMPRESSION: 1. Threadlike left vertebral artery. Consider dissection in the appropriate clinical setting. 2. Right pleural effusion. 3. Nodular fibrosis in the left lung apex. Malignancy is not excluded. Follow-up is advised. Electronically Signed: Melissa Black MD at 20:32 EDT Reading Location ID and State: [place] / Tel , Service support , ADDENDUM: 12/07/222047 IMPRESSION: 1. Threadlike left vertebral artery. Consider dissection in the appropriate clinical setting. 2. Right pleural effusion. 3. Nodular fibrosis in the left lung apex. Malignancy is not excluded. Follow-up is advised. N.B. : The above Results were Read Back by Melissa Black MD to Markell Burt DO, and understanding confirmed on 12/07/2022 20:41:31 (ET). Electronically Signed: Melissa Black MD at 20:32 EDT Reading Location ID and State: [id number] / Tel , Service support , Chest X-Ray 12/07/22 20:49 IMPRESSION: Right lower lobe opacity compatible with pneumonia with small right-sided effusion. There is minimal left basilar airspace disease. Electronically Signed: Dillan Handy MD at 21:28 EDT , Physical Exam Const alert and no apparent distress HEENT head/scalp atraumatic and moist oral mucous membranes HEENT Narrative: slight right facial weakness. Resp normal respiratory effort, no retractions, no use of accessory muscles and clear to auscultation bilaterally Cardio regular rate, regular rhythm, S1 normal heart sound and S2 normal heart sound GI normal to inspection, nondistended, normoactive bowel sounds, soft to palpation and non-tender Psych affect normal Assessment & Plan Assessment/Plan (1) Pneumonia: PLAN: Right lower lobe pneumonia, possible aspiration pneumonia related with #1 complicated by #7: CXR in the ED w/ right lower lobe pneumonia. pip/tazo Will maintain on oxygen with wean as tolerated to room air, continue ATC budesonide, PRN albuterol, maintained on IV Zosyn given aspiration concerns, HOB, IS parameters w/ pending sputum cultures, full respiratory panel, COVID, resp panel, Strep and legionella negative (2) CVA (cerebral vascular accident): PLAN: Ruled out Pt presents w dysarthria, right upper extremity ataxia, right lower extremity sensation alteration concerning for CVA: Data: * CTA head and neck showed thread-like left vertebral artery. Consider dissection in the appropriate clinical setting. * MRI Brain * echocardiogram 09/05/2022 with EF 55%, trivial XIANG, moderately dilated aortic root but no obvious bubble study but given significant advanced age will defer repeat with bubble at this time especially given recent A-fib diagnosis which certainly is patient's risk for acute stroke with only recent start on anticoagulant therapy, PT/OT/Speech/Nutrition evaluation per protocol. Will allow permissive HTN except for beta-hilary if necessary given PAF diagnosis, maintain on asa, at least moderate dose statin w/ AM FLP, fall precautions. Mag, TSH, FLP, HgbA1c requ ested. Maintain on fall and aspiration precautions. Once work-up obtained low threshold to obtain Neurology consultation. (3) Hypokalemia: PLAN: Improved after replacement magnesium 2 PLAN: Plan Chronic conditions: * PAF: EKG upon presentation with sinus rhythm with no acute evidence of ischemia. Will continue recently initiated Eliquis regimen with noted initial fill 11/17/2022 with recent diagnosis per PCP outpatient, noted to have been prescribed also 11/12/2022 metoprolol succinate ER 50 mg tablet 1 tablet daily, clarifying usage. Given permissive hypertension although prolonged timeline would certainly consider continuing metoprolol but holding all other hypertensive regimen for permissive hypertension given #1. * Hypertension: We will maintain permissive hypertension given presentation with resumption of regimen once appropriate, as needed IV regimen per stroke protocol in the interim. * Hyperlipidemia: Not on regimen, adding at least low to moderate dose statin given presentation, FLP in AM. * Chronic COPD/bronchiectasis with chronic hypoxic respiratory failure (3L NC): Will maintain on home oxygen supplementation, will temporally hold home inhalers in the interim will continue ATC budesonide, PRN albuterol, HOB, IS parameters. * Chronic thrombocytopenia, unclear etiology: Admission platelet 138, baseline prior appears similar 130-140 range, will continue to trend. * Heavier EtOH use: Patient notes routine consumption of potentially 4 double shots in a day period potentially several times per week. Difficult from discussions to ascertain how much he drinks weekly. To be cautious however, will maintain on CIWA protocol, MVI, thiamine and folic acid. Mag and phos pending. CM consulted for concern for substance abuse. Prior chart records noted 4 shots daily. * Anxiety and depression: In the past patient had noted to been on sertraline however recently there was a prescription filled for mirtazapine however there is no recent fills thus unclear if patient still on these medications, clarifying and will continue if appropriate but from current list appears to have stopped these medications. * Former tobacco use: Encourage continued tobacco cessation. * BPH: We will continue patient home finasteride regimen. * History of bladder cancer: Status postresection, considered in remission. * GERD: We will continue patient on PPI. DVT prophylaxis: We will continue patient home recently initiated Eliquis regimen however if fails bedside swallow would transition to therapeutic Lovenox in the interim. CODE status: Full Code. Charges/Coding Visit Charges Inpatient E&M: 69695 Subs Hosp L2
[2022-12-08] MEDS: Thiamine Hydrochloride 100 MG Tablet PO (09:29)
[2022-12-08] MEDS: Finasteride 5 MG Tablet PO (09:29)
[2022-12-08] MEDS: APIXABAN 5 MG TABLET PO (09:29)
[2022-12-08] MEDS: Pantoprazole Sodium 20 MG Tablet PO (09:29)
[2022-12-08] MEDS: Metoprolol(XL)Succ 50 MG Tablet PO (09:29)
[2022-12-08] MEDS: Multivitamins,Therapeutic Tablet 1 TABLET PO (09:29)
[2022-12-08] MEDS: Aspirin 81 MG TAB.CHEW PO (09:29)
[2022-12-08] MEDS: Folic Acid 1 MG Tablet PO (09:29)
--- NOTE | 2022-12-08 12:02 | CASEMGMT ---
SW met with patient. Introduced self and role at [facility]. SW asked patient about his alcohol consumption. Patient said he drinks several shots most days. Patient declined any resources. Patient stated, It is not a habit. I can quit anytime I want. Mattie LEUNG
--- NOTE | 2022-12-08 13:10 | CASEMGMT ---
RN?CM?METALSMITH HELPER?CM?to room to meet with patient for initial transition planning/care coordination?assessment.?RN?CM?introduced self and role at [facility].? Pt voices understanding and consents to?assessment?at this time.? Pt sitting on edge of bed in no distress at this time.? Friend/caregiver/RAOUL, Keyonna, in room visiting, as well as Keyonna's mother. Pt agreeable to them Pt is A/O at this time and answers all questions appropriately.?? Care providers, pharmacy, and demographics verified/updated at this time. PCP: Dr Grey Specialists: TARAS/cardiology, Dr Monroy-pulmonology, Dr Grissom-urology Preferred Pharmacy: [facility] Retail Insurance: [employer] [facility] HMO Prescription Benefit:?Yes Living Will/HPOA:?Has LW and HCPOA, who is his friend/caregiver, Keyonna. Pt is interested in completing new POA paperwork, as he would like to list alternatives. Pt has 2 living children and states does not want them involved w/medical decisions. Mattie CARRILLO, made aware. LNOK: Friend/POAKeyonna. Living Arrangements: Lives alone in 1 level apartment. Pt states he is independent w/ADL's. Keyonna sets up weekly med containers and does all home mgnt tasks for him--meals, laundry, and cleaning. Passport/Waiver: Initially, Keyonna states pt has a waiver program. Upon further discussion, she states it is in the process of being approved through [employer], stating [facility] told pt he qualifies for an aide and from their understanding a prior auth is needed. Pt denies having a CM already through [facility], but is interested in getting aides in the home to assist w/home mgnt. Mattie CARRILLO, made aware of above. Transportation:?Keyonna takes pt grocery shopping and to all appts. DME: ?States has the following DME:?extended tub bench, grab bars, cane, and medical alert. Pt states he has O2 through [employer] @ 2l/m continuously and has a pulse ox. Per therapy notes, pt used a WW when they worked w/him. Pt states he does not have a walker and would be willing to get one. His preference of DME co is [employer]. Pt and Keyonna state no need for further DME at this time.? HHC/SNF: Initially pt stated interested in HHC. Discussed homebound requirements/criteria. Pt states he is not homebound and does not anticipate he will be homebound @ discharge, and does not want HHC. JONNA ARRIOLA informed him and Keyonna, if once he returns home he feels he is homebound and wants HHC, to discuss this w/his PCP. They voice understanding. Pt wishes to return home and states has no concerns with going home at time of discharge.? CM?to follow for any increase in home oxygen needs and any further discharge planning/needs.? Pt and Keyonna voices no further concerns/needs at this time.? Advised them to ask for?CM?if any further questions/concerns/needs arise.? The voice understanding. PLAN:??Home Pedrito ERNANDEZN?RN?CM
--- NOTE | 2022-12-08 13:11 | SP.MBSS_ITS ---
Modified Barium Swallow Patient Information Study Date: 12/08/22 Study Time: 12:30 Direct Billable Minutes: 90 Total Minutes procedure & reportin Diagnosis: J18.9 - Pneumonia Referring Physician: Madan Au Reason for Referral: Objectively assess swallow function, risk for aspiration, and determine recommendations for least restrictive diet textures and compensatory strategies to improve safety of swallow. Medical History: Patient is an 82yo M w/ PMHx: GERD, Chronic thrombocytopenia, PAF on eliquis, Chronic COPD/Bronchiectasis with Chronic Hypoxic Respiratory failure (3L NC), HTN, HLD, ENEDINA, RLS, Former tobacco use, Anxiety and Depression, Heavier EtOH use, Hx Bladder CA s/p resection who presents to the [facility] ED on 12/07/22 with history of last known well December 03 at unclear time with onset of left upper extremity ataxia, dysarthria as well as decree sensation to the right lower extr emity and specifically per patient difficulty smiling which eventually prompted him to call EMS for evaluation. In the ED NIH stroke scale 3 for slight dysarthria, right upper extremity ataxia as well as right lower extremity decreased sensation. Stroke alert called in the field as patient on route secondary to symptom history; however, given symptoms greater than 24 hours with low NIH score and not a thrombectomy candidate stroke alert was downgraded/canceled. MRI and CT brain unremarkable. CTA head and neck with a threadlike vertebral artery with possible concern for dissection, right pleural effusion, nodular fibrosis in the left lung apex with inability to exclude malignancy with recommended follow-up, CXR with right lower lobe opacity concerning for pneumonia with a right-sided small effusion as well as minimal left but basilar airspace disease, EKG with sinus rhythm with no acute evidence of ischemia. ST consulted for CVA workup and possible aspiration pneumonia. Current Diet Ordered: Regular textures / Thin Liquids Dentition: Upper Dentures and Lower Dentures Mental Status: WNL Respiratory Status: Oxygenating on 2L/M nasal cannula Penetration-Aspiration Scale Penetration-Aspiration Scale: OBJECTIVE ASSESSMENT OF SWALLOW FUNCTION (QUANTITATIVE ? PER TRIAL): PENETRATION / ASPIRATION SCALE (LARA): 1 = does not enter airway 2 = enters airway/above vocal folds/ejected 3 = enters airway/above vocal folds/not ejected 4 = enters airway/contacts vocal folds/ejected 5 = enters airway/contacts vocal folds/not ejected 6 = enters airway/below vocal folds/ejected 7 = enters airway/below vocal folds/not ejected despite effort 8 = enters airway/below vocal folds/no effort VIDEOFLOROSCOPIC SCALE SCORE (LARA): Grade I = aspiration of material that has penetrated into the laryngeal vestibule, intact cough reflex Grade II = aspiration < 10 % of the bolus, intact cough reflex Grade III = aspiration of < 10 % of the bolus, reduced cough reflex or aspiration of > 10 % of the bolus, intact cough reflex Grade IV = aspiration of > 10 % of the bolus, reduced cough reflex Penetration-Aspiration Scale Score Thin Liquid via teaspoon: Result: 1= does not enter airway Thin Liquid via teaspoon Trial 2: Result: 1= does not enter airway Thin Liquid via single sip from cup : Result: 2= enter airway/above vocal folds/ejected Thin Liquid via single sip from cup Trial 2: Result: 1= does not enter airway Thin Liquid via single sip from straw: Result: 1= does not enter airway [place] Thick Liquid via single sip from cup : Result: 1= does not enter airway [place] Thick Liquid via single sip from cup: Result: 1= does not enter airway Pudding: Result: 1= does not enter airway Cookie: Result: 1= does not enter airway Thin Liquid via sequential sips from cup : Result: 1= does not enter airway Oral Phase Labial Seal: No Labial Escape Tongue Control During Bolus Hold: Posterior escape of less than half of bolus Bolus Preparation/Mastication: Slow prolonged chewing/mashing with complete recollection Bolus Transport/Lingual Motion: Delayed initiation of tongue motion Oral Residue: Trace residue lining oral structures Pharyngeal Phase Initiation of Pharyngeal Swallow: Bolus head in valleculae Soft Palate Elevation: No bolus between soft palate and pharyngeal wall Laryngeal Elevation: Partial superior movement thyroid cart/partial apprx aryt- epig petiole Anterior Hyoid Excursion: Complete anterior movement Epiglottic Movement: Complete inversion Laryngeal Vestibule Closure at Height of Swallow: Incomplete; narrow column of air/contrast in laryngeal vestibule Pharyngeal Stripping Wave: Present - diminished Pharyngoesophageal Segment Opening: Parital distension and partial duration; parital obstruction of flow Tongue Base Retraction: Wide column of contrast between tongue base & post. pharyngeal wall Pharyngeal Residue: Collection of residue within or on pharyngeal structures Esophageal Phase Esophageal Clearance: Complete clearance Treatment Strategies Effects of treatment strategies attemped:: double swallow = effective to clear pharyngeal residue Diagnosis/Impression Diagnosis: mild oropharyngeal dysphagia R13.12 Impression: Patient presents w/ mild oropharyngeal dysphagia. Oral phase primarily marked by... - mild mastication insufficiency w/ piecemeal deglutition of swallow - reduced lingual lateralization resulting in minimal oral residue post deglutition - swallow onset delay resulting in premature bolus loss to the vallecula Pharyngeal phase primarily marked by... - reduced airway closure resulting in penetration that was fully ejected w/ single sip of thin liquid - no other penetration or aspiration was observed during the study - poor pharyngeal motility attributed to wide tongue base retraction and reduced pharyngeal stripping wave resulting in pharyngeal retention in the vallecula and pyriforms. Noted pharyngeal residue in the vallecula spilling to the pyriforms. - w/ use of double swallow, pharyngeal residues decreased Effective esophageal clearance. Recommendations Diet: Regular Textures and Thin Liquids Compensatory Strategies: Small Bites, Small Sips, Slow Rate, Multiple Swallows, Alternate bites/solids and sips/liquids, Sitting upright and Remain sitting upright for 30 minutes after PO intake Recommend Repeat Modified Barium Swallow: TBD Need for Skilled Speech Therapy Services: Yes Education Completed: 1. Described result of evaluation. and 2. Pt understands evaluation & agrees with goals and treatment plan. Status Active ST Patient: Active Contact Information [facility] Speech Therapy:: Kirsten Boyd M.A. [facility]-SAFETY INVESTIGATOR Speech-Language Pathologist [facility] [address] [place] [address] [email or web address] [phone]
--- NOTE | 2022-12-08 14:47 | CASEMGMT ---
SW met with patient as per RN CM patient was interested in completing Healthcare Power of Electric Mule Operator (HCPOA) papers and [facility] information. Patient had two visitors present and was okay proceeding with them present. SW assisted patient in completing HCPOA papers. Copies were made and given to patient along with original. SW also placed a copy in patient's chart. SW also provided patient with information on [facility]. Patient would like SW to make a referral for Passport program. SW made a referral to [facility] for assessment for Passport program. Mattie Carlson CHILD CARE CENTRE DIRECTOR MADHU
[2022-12-08] MEDS: Albuterol 2.5 MG/3 ML VIAL.NEB. INHALATION ×2 (20:02→23:21)
[2022-12-08] MEDS: Atorvastatin Calcium 80 MG Tablet 20 MG PO (21:34)
[2022-12-08] MEDS: amLODIPine 10 MG Tablet PO (22:38)
[2022-12-09 02:31] VITALS: BMI 28.5
[2022-12-09 03:33] VITALS: BP 146/88; PULSE 86; RESP 18; TEMP 36.6; O2SAT 92
[2022-12-09 05:42] VITALS: BMI 28.4
[2022-12-09 06:09] LABS: Absolute Lymphocyte Count 0.85 X10^3/uL (0.83-4.51); Absolute Neutrophil Count 4.3 X10^3/uL (2.0-7.7); Basophil# 0.04 X10^3/uL; Basophil% 0.6 % (0-1); Eosinophil# 0.16 X10^3/uL; Eosinophils% 2.6 % (0-5); Hematocrit 43.3 % (40-54); Hemoglobin 14.6 g/dL (13.0-16.5); Lymphocyte # 0.85 X10^3/ul (0.83-4.51); Lymphocyte % 13.7 % (19-41); Mean Corp Hgb Conc 33.7 g/dL (32-36); Mean Corpuscular Hgb 32.6 pg (27.0-32.0); Mean Corpuscular Volume 96.7 fL (80-94); Mean Platelet Vol. 9.6 fl (6.2-12.0); Monocyte% 12.9 % (0-10); NRBC Flagged by Analyzer 0 % (0-5); Neutrophil % 69.4 % (47-70); Platelet Count 129 K/mm3 (150-450); RBC Distribution Width CV 12.7 % (11.6-14.6); RBC Distribution Width SD 45.3 fl (35.1-43.9); Red Blood Count 4.48 M/mm3 (4.6-6.2); White Blood Count 6.2 K/mm3 (4.4-11.0)
[2022-12-09 06:39] LABS: Anion Gap 4 (5-15); BUN 7 mg/dL (7-18); BUN/Creat Ratio 8.8 RATIO (10-20); Calcium,Total 8.4 mg/dL (8.5-10.1); Chloride 107 mmol/L (98-107); EST Glomerular Filtration Rate 98 mL/min (>60); Est Glom Filt Rate - Afr Amer 118 mL/min (>60); Estimated Creatinine Clearance 68.74 ml/min; Glucose 112 mg/dL (74-106); Potassium 3.7 mmol/L (3.5-5.1); Sodium Level 140 mmol/L (136-145)
[2022-12-09 06:54] VITALS: PULSE 85; RESP 20; O2SAT 91
[2022-12-09] MEDS: Budesonide Respules 0.5 MG/2 ML AMPUL.NEB. INHALATION (06:54)
--- NOTE | 2022-12-09 08:07 | PN.HOSP_ITS ---
Reason for Visit Reason for Visit: Diagnoses Hypokalemia (12/07/22) Cerebral infarction, unspecified (12/07/22) Pneumonia, unspecified organism (12/07/22) Subjective Subjective Breathing well. No new issues. Objective Data Objective Data Vital Signs: Vital Signs Temp Pulse Resp BP Pulse Ox O2 Del Method O2 Flow Rate 36.6 C 86 18 146/88 H 92 Nasal Cannula 2 12/09/22 03:33 12/09/22 03:33 12/09/22 03:33 12/09/22 03:33 12/09/22 03:33 12/09/22 04:00 12/09/22 04:00 Oxygen Flow Rate (L/min) 2 Oxygen Delivery Method Nasal Cannula Weight: 87.4 kg Body Mass Index (BMI) 28.4 Intake & Output: Intake and Output for Last 24 Hours 12/07/22 12/08/22 12/09/22 23:59 23:59 23:59 Intake Total 2410 / 2410 290 / 290 Output Total 500 / 500 Balance 2410 / 2410 -210 / -210 Lab / Micro Data 12/09/22 05:55 12/09/22 05:55 Labs: Laboratory Results - last 24 hr 12/09/22 05:55: WBC 6.2, RBC 4.48 L, Hgb 14.6, Hct 43.3, MCV 96.7 H, MCH 32.6 H, MCHC 33.7, RDW Std Deviation 45.3 H, RDW Coeff of Glenn 12.7, Plt Count 129 L, MPV 9.6, Immature Gran % (Auto) 0.800, Neut % (Auto) 69.4, Lymph % (Auto) 13.7 L, [place] % (Auto) 12.9 H, Eos % (Auto) 2.6, Baso % (Auto) 0.6, Absolute Neuts (auto) 4.3, Absolute Lymphs (auto) 0.85, Nucleated RBC % 0, Sodium 140, Potassium 3.7, Chloride 107, Carbon Dioxide 29.0, Anion Gap 4 L, BUN 7, Creatinine 0.80, Estim Creat Clear Calc 68.74, Est GFR (MDRD) Af Amer 118, Est GFR (MDRD) Non-Af 98, BUN/Creatinine Ratio 8.8 L, Glucose 112 H, Calcium 8.4 L Micro: Microbiology 12/08/22 01:28 Mucosa - Nasopharyngeal Coronavirus COVID-19 PCR - Final 12/08/22 01:28 Mucosa - Nasopharyngeal Respiratory Panel (PCR) - Final 12/08/22 04:15 Urine, Clean Catch Streptococcus pneumoniae Antigen (M - Final 12/08/22 04:15 Urine, Clean Catch Legionella Antigen - Final Radiography Diagnostic Testing: Radiology Impression Brain MRI 12/08/22 01:15 IMPRESSION: No evidence for acute infarct. Chronic involutional and white matter changes. Electronically Signed: Miesha Cadena MD at 11:40 EDT , Physical Exam Const alert and no apparent distress Resp normal respiratory effort and no retractions Resp Narrative: bibasilar crackles Cardio regular rate, regular rhythm, S1 normal heart sound and S2 normal heart sound Assessment & Plan Assessment/Plan (1) Pneumonia: QUALIFIERS: Laterality: right Lung location: lower lobe of lung Pneumonia type: due to unspecified organism Qualified Code(s): J18.9 - Pneumonia, unspecified organism PLAN: Right lower lobe pneumonia, possible aspiration pneumonia related with #1 complicated by #7: CXR in the ED w/ right lower lobe pneumonia. pip/tazo Will maintain on oxygen with wean as tolerated to room air, continue ATC budesonide, PRN albuterol, maintained on IV Zosyn given aspiration concerns, HOB, IS parameters w/ pending sputum cultures, full respiratory panel, COVID, resp panel, Strep and legionella negative Patient ambulated and required 2 liters of oxygen w activity. Discharge with Agumentin. (2) CVA (cerebral vascular accident): QUALIFIERS: CVA mechanism: unspecified Qualified Code(s): I63.9 - Cerebral infarction, unspecified PLAN: Ruled out Pt presents w dysarthria, right upper extremity ataxia, right lower extremity sensation alteration concerning for CVA: Data: * CTA head and neck showed thread-like left vertebral artery. Consider dissection in the appropriate clinical setting. * MRI Brain: no acute infarct. * echocardiogram 09/05/2022 with EF 55%, trivial XIANG, moderately dilated aortic root but no obvious bubble study but given significant advanced age will defer repeat with bubble at this time especially given recent A-fib diagnosis which certainly is patient's risk for acute stroke with only recent start on anticoagulant therapy, (3) Hypokalemia: PLAN: Improved after replacement magnesium 2 PLAN: Plan Chronic conditions: * PAF: EKG upon presentation with sinus rhythm with no acute evidence of ischemia. Will continue recently initiated Eliquis regimen with noted initial fill 11/17/2022 with recent diagnosis per PCP outpatient, noted to have been prescribed also 11/12/2022 metoprolol succinate ER 50 mg tablet 1 tablet daily, clarifying usage. Given permissive hypertension although prolonged timeline would certainly consider continuing metoprolol but holding all other hypertensive regimen for permissive hypertension given #1. * Hypertension: We will maintain permissive hypertension given presentation with resumption of regimen once appropriate, as needed IV regimen per stroke prot ocol in the interim. * Hyperlipidemia: Not on regimen, adding at least low to moderate dose statin gi gwyn presentation, FLP in AM. * Chronic COPD/bronchiectasis with chronic hypoxic respiratory failure (3L NC): Will maintain on home oxygen supplementation, will temporally hold home inhalers in the interim will continue ATC budesonide, PRN albuterol, HOB, IS parameters. * Chronic thrombocytopenia, unclear etiology: Admission platelet 138, baseline prior appears similar 130-140 range, will continue to trend. * Heavier EtOH use: Patient notes routine consumption of potentially 4 double shots in a day period potentially several times per week. Difficult from discussions to ascertain how much he drinks weekly. To be cautious however, will maintain on CIWA protocol, MVI, thiamine and folic acid. Mag and phos pending. CM consulted for concern for substance abuse. Prior chart records noted 4 shots daily. * Anxiety and depression: In the past patient had noted to been on sertraline however recently there was a prescription filled for mirtazapine however there is no recent fills thus unclear if patient still on these medications, clarifying and will continue if appropriate but from current list appears to have stopped these medications. * Former tobacco use: Encourage continued tobacco cessation. * BPH: We will continue patient home finasteride regimen. * History of bladder cancer: Status postresection, considered in remission. * GERD: We will continue patient on PPI. DVT prophylaxis: We will continue patient home recently initiated Eliquis regimen however if fails bedside swallow would transition to therapeutic Lovenox in the interim. CODE status: Full Code.
[2022-12-09 08:45] VITALS: BP 144/92; PULSE 84; RESP 18; TEMP 36.6; O2SAT 93
[2022-12-09 08:51] VITALS: PULSE 84
[2022-12-09] MEDS: Thiamine Hydrochloride 100 MG Tablet PO (08:51)
[2022-12-09] MEDS: Multivitamins,Therapeutic Tablet 1 TABLET PO (08:51)
[2022-12-09] MEDS: APIXABAN 5 MG TABLET PO (08:51)
[2022-12-09] MEDS: Folic Acid 1 MG Tablet PO (08:51)
[2022-12-09] MEDS: Finasteride 5 MG Tablet PO (08:51)
[2022-12-09] MEDS: Metoprolol(XL)Succ 50 MG Tablet PO (08:51)
[2022-12-09] MEDS: Pantoprazole Sodium 20 MG Tablet PO (08:51)
[2022-12-09] MEDS: amLODIPine 10 MG Tablet PO (08:57)
[2022-12-09 09:41] VITALS: O2SAT 79; O2SAT 89; O2SAT 90
--- NOTE | 2022-12-09 12:30 | PCM.DC ---
Discharge Instructions Diet Discharge Diet: No restrictions Dressing / Incision Call your doctor if you observe: Fever of 101 or Higher and Shortness of breath Follow Up Care Test Results: Test results from this visit will be discussed in further detail at your follow-up appointment, if applicable. Discharge Plan Admission Admit Date/Time: 12/07/22 22:36 Primary Reason for Your Visit: pneumonia Attending Provider: Madan Au Primary Care Provider: Art Grey Consulting Providers: Meri Roth Discharge Orders/Prescriptions Prescriptions: New amoxicillin-pot clavulanate 875-125 mg tablet 1 tab PO BID Qty: 10 0RF Continued amlodipine 10 mg tablet 10 mg PO DAILY multivitamin Tablet 1 tab PO DAILY finasteride 5 mg tablet 5 mg PO DAILY omeprazole 20 mg capsule,delayed release(DR/EC) 20 mg PO DAILY albuterol sulfate 90 mcg/actuation HFA aerosol inhaler 2 puff inhalation Q4H PRN (Reason: SOB) Qty: 8.5 1RF Stiolto Respimat 2.5-2.5 mcg/actuation mist 2 inh inhalation DAILY Qty: 3 3RF Eliquis 5 mg tablet 5 mg PO DAILY Patient Comments: PT REPORTS HE TAKES IT ONCE DAILY metoprolol succinate 50 mg tablet extended release 24 hr 50 mg PO DAILY Patient Comments: take 1 tablet by mouth once daily Referrals / Follow Up: [facility] [Provider Group] - 02/25/23 1:15 pm Dru Morrell MD [Med Staff - Active Staff] - 12/10/22 1:45 pm Art Grey MD [Primary Care Provider] - Within 2 Weeks Disposition Disposition (needs filled in before D/C Order can be placed): Home, Self Care
--- NOTE | 2022-12-09 12:35 | DS.PCM_ITS ---
Providers Date of Admission: 12/07/22 Primary Care Physician: Dr. Art Grey MD Reason For Visit: CVA, RLL PNA Diagnosis Discharge Diagnosis (1) Pneumonia: Status: Acute Code(s): J18.9 - Pneumonia, unspecified organism Qualifiers: Pneumonia type: due to unspecified organism Laterality: right Lung location: lower lobe of lung Qualified Code(s): J18.9 - Pneumonia, unspecified organism Plan: Right lower lobe pneumonia, possible aspiration pneumonia related with #1 complicated by #7: CXR in the ED w/ right lower lobe pneumonia. pip/tazo Will maintain on oxygen with wean as tolerated to room air, continue ATC budesonide, PRN albuterol, maintained on IV Zosyn given aspiration concerns, HOB, IS parameters w/ pending sputum cultures, full respiratory panel, COVID, resp panel, Strep and legionella negative Patient ambulated and required 2 liters of oxygen w activity. Discharge with Agumentin. (2) CVA (cerebral vascular accident): Status: Acute Code(s): I63.9 - Cerebral infarction, unspecified Qualifiers: CVA mechanism: unspecified Qualified Code(s): I63.9 - Cerebral infarction, unspecified Plan: Ruled out Pt presents w dysarthria, right upper extremity ataxia, right lower extremity sensation alteration concerning for CVA: Data: * CTA head and neck showed thread-like left vertebral artery. Consider dissection in the appropriate clinical setting. * MRI Brain: no acute infarct. * echocardiogram 09/05/2022 with EF 55%, trivial XIANG, moderately dilated aortic root but no obvious bubble study but given significant advanced age will defer repeat with bubble at this time especially given recent A-fib diagnosis which certainly is patient's risk for acute stroke with only recent start on anticoagulant therapy, (3) Hypokalemia: Status: Acute Code(s): E87.6 - Hypokalemia Plan: Improved after replacement magnesium 2 Plan Chronic conditions: * PAF: EKG upon presentation with sinus rhythm with no acute evidence of ischemia. Will continue recently initiated Eliquis regimen with noted initial fill 11/17/2022 with recent diagnosis per PCP outpatient, noted to have been prescribed also 11/12/2022 metoprolol succinate ER 50 mg tablet 1 tablet daily, clarifying usage. Given permissive hypertension although prolonged timeline would certainly consider continuing metoprolol but holding all other hypertensive regimen for permissive hypertension given #1. * Hypertension: We will maintain permissive hypertension given presentation with resumption of regimen once appropriate, as needed IV regimen per stroke protocol in the interim. * Hyperlipidemia: Not on regimen, adding at least low to moderate dose statin given presentation, FLP in AM. * Chronic COPD/bronchiectasis with chronic hypoxic respiratory failure (3L NC): Will maintain on home oxygen supplementation, will temporally hold home inhalers in the interim will continue ATC budesonide, PRN albuterol, HOB, IS parameters. * Chronic thrombocytopenia, unclear etiology: Admission platelet 138, baseline prior appears similar 130-140 range, will continue to trend. * Heavier EtOH use: Patient notes routine consumption of potentially 4 double shots in a day period potentially several times per week. Difficult from discussions to ascertain how much he drinks weekly. To be cautious however, will maintain on CIWA protocol, MVI, thiamine and folic acid. Mag and phos pending. CM consulted for concern for substance abuse. Prior chart records noted 4 shots daily. * Anxiety and depression: In the past patient had noted to been on sertraline however recently there was a prescription filled for mirtazapine however there is no recent fills thus unclear if patient still on these medications, clinton boykin and will continue if appropriate but from current list appears to have stopped these medications. * Former tobacco use: Encourage continued tobacco cessation. * BPH: We will continue patient home finasteride regimen. * History of bladder cancer: Status postresection, considered in remission. * GERD: We will continue patient on PPI. DVT prophylaxis: We will continue patient home recently initiated Eliquis regimen however if fails bedside swallow would transition to therapeutic Lovenox in the interim. CODE status: Full Code. Medications at Discharge Home Medications amlodipine 10 mg tablet 10 mg PO DAILY 08/07/21 multivitamin 1 tab PO DAILY 08/07/21 finasteride 5 mg tablet 5 mg PO DAILY 08/08/21 omeprazole 20 mg capsule,delayed release 20 mg PO DAILY 10/25/21 albuterol sulfate 90 mcg/actuation aerosol inhaler 2 puff inhalation Q4H PRN SOB #8.5 grams 02/25/22 tiotropium 2.5 mcg-olodaterol 2.5 mcg/actuation mist for inhalation (Stiolto Respimat) 2 inh inhalation DAILY #3 ea 08/25/22 apixaban 5 mg tablet (Eliquis) 5 mg PO DAILY 12/07/22 metoprolol succinate 50 mg tablet,extended release 24 hr 50 mg PO DAILY 12/07/22 amoxicillin 875 mg-potassium clavulanate 125 mg tablet 1 tab PO BID #10 tabs 12/09/22 Hospital Course Operations None Procedures None Summary of Care Provided Minutes Spent on Discharge: 28 Weight / BMI Weight Weight: 87.4 kg Body Mass Index (BMI) 28.4 ABG / Lab / Microbiology Data 12/09/22 05:55 12/09/22 05:55 Laboratory: Laboratory Results - last 24 hr 12/09/22 05:55: WBC 6.2, RBC 4.48 L, Hgb 14.6, Hct 43.3, MCV 96.7 H, MCH 32.6 H, MCHC 33.7, RDW Std Deviation 45.3 H, RDW Coeff of Glenn 12.7, Plt Count 129 L, MPV 9.6, Immature Gran % (Auto) 0.800, Neut % (Auto) 69.4, Lymph % (Auto) 13.7 L, [place] % (Auto) 12.9 H, Eos % (Auto) 2.6, Baso % (Auto) 0.6, Absolute Neuts (auto) 4.3, Absolute Lymphs (auto) 0.85, Nucleated RBC % 0, Sodium 140, Potassium 3.7, Chloride 107, Carbon Dioxide 29.0, Anion Gap 4 L, BUN 7, Creatinine 0.80, Estim Creat Clear Calc 68.74, Est GFR (MDRD) Af Amer 118, Est GFR (MDRD) Non-Af 98, BUN/Creatinine Ratio 8.8 L, Glucose 112 H, Calcium 8.4 L Microbiology: Microbiology 12/08/22 01:28 Mucosa - Nasopharyngeal Coronavirus COVID-19 PCR - Final 12/08/22 01:28 Mucosa - Nasopharyngeal Respiratory Panel (PCR) - Final 12/08/22 04:15 Urine, Clean Catch Streptococcus pneumoniae Antigen (M - Final 12/08/22 04:15 Urine, Clean Catch Legionella Antigen - Final D/C Instructions Discharge Diet: No restrictions Call your doctor if you observe: Fever of 101 or Higher and Shortness of breath Meaningful Use Info Meaningful Use Diagnoses (Choose all that apply): None applicable Discharge Plan Admission Admit Date/Time: 12/07/22 22:36 Primary Reason for Your Visit: pneumonia Attending Provider: Madan Au Primary Care Provider: Art Grey Consulting Providers: Meri Roth Discharge Orders/Prescriptions Prescriptions: New amoxicillin-pot clavulanate 875-125 mg tablet 1 tab PO BID Qty: 10 0RF Continued amlodipine 10 mg tablet 10 mg PO DAILY multivitamin Tablet 1 tab PO DAILY finasteride 5 mg tablet 5 mg PO DAILY omeprazole 20 mg capsule,delayed release(DR/EC) 20 mg PO DAILY albuterol sulfate 90 mcg/actuation HFA aerosol inhaler 2 puff inhalation Q4H PRN (Reason: SOB) Qty: 8.5 1RF Stiolto Respimat 2.5-2.5 mcg/actuation mist 2 inh inhalation DAILY Qty: 3 3RF Eliquis 5 mg tablet 5 mg PO DAILY Patient Comments: PT REPORTS HE TAKES IT ONCE DAILY metoprolol succinate 50 mg tablet extended release 24 hr 50 mg PO DAILY Patient Comments: take 1 tablet by mouth once daily Referrals / Follow Up: [facility] [Provider Group] - 02/25/23 1:15 pm Dru Morrell MD [Med Staff - Active Staff] - 12/10/22 1:45 pm Art Grey MD [Primary Care Provider] - Within 2 Weeks Disposition Disposition (needs filled in before D/C Order can be placed): Home, Self Care Charges/Coding Visit Charges Inpatient E&M: 68925 Disch Hosp
[2022-12-09 14:21] VITALS: BP 123/74; PULSE 64; RESP 20; TEMP 36.6; O2SAT 93
[2022-12-09 14:22] VITALS: BMI 28.4
--- NOTE | 2022-12-09 14:28 | CASEMGMT ---
Patient does not have a Healthcare Living will. SW completed Healthcare Power of Industrial Machine Operator papers with patient. Patient named his friend Keyonna. Mattie Carlson CIAIO LUMITE INJECTOR MADHU
--- NOTE | 2022-12-09 15:09 | PHA.DC_ITS ---
Pharmacy [facility] Pharm[facility] Service has performed discharge medication reconciliation and counseling for this patient. 1. AUGMENTIN 875MG PO BID X 5 DAYS The patient's discharge medication list was reviewed for discrepancies and discrepancies were resolved. The patient was counseled on the following discharge medications and changes in medications for homegoing were reviewed. The Reason for Use, instructions for use, and potential side effects were reviewed for all new medications. The patient's questions regarding all of their medications were answered. The patient was able to verbally demonstrate an understanding of their discharge medications. Medications at Discharge Home Medications amlodipine 10 mg tablet 10 mg PO DAILY blood pressure 08/07/21 multivitamin 1 tab PO DAILY vitamin 08/07/21 finasteride 5 mg tablet 5 mg PO DAILY prostate 08/08/21 omeprazole 20 mg capsule,delayed release 20 mg PO DAILY protonix 10/25/21 albuterol sulfate 90 mcg/actuation aerosol inhaler 2 puff inhalation Q4H PRN SOB #8.5 grams 02/25/22 tiotropium 2.5 mcg-olodaterol 2.5 mcg/actuation mist for inhalation (Stiolto Respimat) 2 inh inhalation DAILY breathing #3 ea 08/25/22 apixaban 5 mg tablet (Eliquis) 5 mg PO DAILY blood thinner 12/07/22 metoprolol succinate 50 mg tablet,extended release 24 hr 50 mg PO DAILY blood pressure 12/07/22 amoxicillin 875 mg-potassium clavulanate 125 mg tablet 1 tab PO BID #10 tabs 12/09/22
--- NOTE | 2022-12-09 15:42 | NURSING ---
pt going home on oxygen, family forgot to bring in home o2 tank and refusing to wear oxygen home stating I don't need it. Educated on importance of need of oxygen. pt verbalized understanding. Pt o2 monitored on room air at 90%.
--- NOTE | 2022-12-09 15:51 | NURSING ---
Reviewed and agreed on charting with Eiljah Goel RN
== END 2022-12-09 15:49 | disposition home or self-care (01) | DRG 178 ==
LOC: ED 23:28 → PCU 23:53
PROVIDERS: Admitting Provider Family Medicine; Emergency Provider Emergency Medicine; PCP Family Medicine; Referring Provider Family Medicine
DX: J69.0 Pneumonitis due to inhalation of food and vomit (principal); J47.0 Bronchiectasis with acute lower respiratory infection; J96.11 Chronic respiratory failure with hypoxia; D69.6 Thrombocytopenia, unspecified; I48.0 Paroxysmal atrial fibrillation; E78.5 Hyperlipidemia, unspecified; E87.6 Hypokalemia; I10 Essential (primary) hypertension; K21.9 Gastro-esophageal reflux disease without esophagitis; G47.33 Obstructive sleep apnea (adult) (pediatric); F41.9 Anxiety disorder, unspecified; F32.A Depression, unspecified; R47.1 Dysarthria and anarthria; R27.0 Ataxia, unspecified; N40.0 Benign prostatic hyperplasia without lower urinary tract symptoms; Z99.81 Dependence on supplemental oxygen; Z20.822 Contact with and (suspected) exposure to COVID-19; Z79.01 Long term (current) use of anticoagulants; Z79.899 Other long term (current) drug therapy; Z87.891 Personal history of nicotine dependence
CPT/HCPCS: 36415; 70450; 70496; 70498; 70551; 71045; 74230; 80048; 80053; 80061; 80076; 83036; 83735; 84100; 84443; 84484; 85025; 85610; 85730; 87449; 87633; 87635; 87641; 92526; 92610; 92611; 93005; 94640; 94668; 94762; 97162; 97166; 97802; 99285; J7030; J7040; Q9967; A4216

== ENCOUNTER → 2023-01-06 | Outpatient (CLI) | payer MEDICARE, MEDICAID, SELFPAY ==
--- NOTE | 2023-01-06 16:15 | RAD_ITS ---
INDICATION: COPD EXAMINATION/TECHNIQUE: X-RAY - XR Chest 2 Views COMPARISON: December 07, 2022 FINDINGS: LINES/DEVICES: None. LUNGS: There is a persistent right basilar infiltrate with interval worsening. Right apical pleural thickening. No pneumothorax. MEDIASTINUM AND CARDIOVASCULAR STRUCTURES: Cardiac silhouette not enlarged. Central airways and mediastinal contour are unremarkable. BONES AND SOFT TISSUES: Unremarkable. RAD/Chest PA and Lateral IMPRESSION: Interval slight worsening of right lower lobe infiltrate. Electronically Signed: Jhon Cardona DO at 17:46 EDT ,
[2023-01-06 17:30] LABS: Absolute Lymphocyte Count 1.24 X10^3/uL (0.83-4.51); Absolute Neutrophil Count 6.2 X10^3/uL (2.0-7.7); Basophil# 0.05 X10^3/uL; Basophil% 0.6 % (0-1); Eosinophil# 0.08 X10^3/uL; Hematocrit 49.1 % (40-54); Hemoglobin 15.7 g/dL (13.0-16.5); Lymphocyte # 1.24 X10^3/ul (0.83-4.51); Mean Corpuscular Hgb 31.7 pg (27.0-32.0); Mean Platelet Vol. 10.1 fl (6.2-12.0); Monocyte# 0.66 X10^3/uL; NRBC Flagged by Analyzer 0 % (0-5); Neutrophil # 6.18 X10^3/uL (2.7-7.7); Neutrophil % 74.6 % (47-70); Platelet Count 148 K/mm3 (150-450); RBC Distribution Width CV 13.2 % (11.6-14.6); RBC Distribution Width SD 48.1 fl (35.1-43.9); Red Blood Count 4.96 M/mm3 (4.6-6.2); White Blood Count 8.3 K/mm3 (4.4-11.0)
[2023-01-06 17:41] LABS: D-Dimer Quantitative (DVT/PE) 0.37 FEU/ug/m (0.27-0.49)
[2023-01-06 18:01] LABS: BNP,B-Type NATRIURETIC PEPTIDE 502.1 pg/mL (0-100)
[2023-01-06 18:03] LABS: ALB/GLOB Ratio 0.9 RATIO (0.9-2.4); AST(SGOT) 22 U/L (15-37); Alanine Aminotransfer ALT/SGPT 29 U/L (16-61); Alkaline Phosphatase 74 U/L (45-117); Anion Gap 3 (5-15); BUN 13 mg/dL (7-18); BUN/Creat Ratio 15.8 RATIO (10-20); Calcium,Total 8.3 mg/dL (8.5-10.1); Chloride 106 mmol/L (98-107); Creatinine, Serum 0.82 mg/dL (0.70-1.30); EST Glomerular Filtration Rate 95 mL/min (>60); Est Glom Filt Rate - Afr Amer 115 mL/min (>60); Globulin 3.3 g/dL (2.2-4.2); Glucose 156 mg/dL (74-106); Protein, Total 6.3 g/dL (6.4-8.2); Sodium Level 140 mmol/L (136-145)
== END | disposition home or self-care (01) ==
PROVIDERS: PCP Family Medicine; Referring Provider Family Medicine; Visit Provider Family Medicine
DX: J44.9 Chronic obstructive pulmonary disease, unspecified (principal); R06.02 Shortness of breath
CPT/HCPCS: 36415; 71046; 80053; 83880; 85025; 85379

== ENCOUNTER → 2023-01-16 | Outpatient (CLI) | payer MEDICARE, MEDICAID, SELFPAY ==
--- NOTE | 2023-01-16 17:46 | CT_ITS ---
EXAM: CT CHEST WITHOUT INTRAVENOUS CONTRAST CLINICAL INDICATION: Pneumonia. TECHNIQUE: Helically acquired images were obtained of the chest without intravenous contrast. This CT exam was performed using one or more of the following dose reduction techniques: automated exposure control, adjustment of the mA and/or kV according to patient size, and/or use of iterative reconstruction technique. COMPARISON: Chest radiograph, 01/06/[address] chest, 11/08/2021. FINDINGS: LUNGS AND PLEURAL SPACES: Medium-sized right pleural effusion with consolidative airspace disease in the right lower lobe. Calcified and spiculated apical pleural parenchymal nodular scarring on the right and unchanged somewhat spiculated nodular density in the left apex. 9 mm pleural-based nodule in the left lower lobe is unchanged. Cystic changes in the right lower lobe and right middle lobe with intervening septal thickening. HEART: Coronary artery calcifications and/or stents. Heart size is normal. No pericardial effusion. MEDIASTINUM: No significant abnormality. No mediastinal or hilar adenopathy. Esophagus is unremarkable. No hiatal hernia. THYROID: No significant abnormality. No thyroid lesions. BONES/JOINTS: Degenerative changes in the spine. No suspicious lytic or blastic abnormality. VASCULATURE: 4.3 cm ascending aortic ectasia. Atherosclerosis of the aorta and its branch vessels. LIVER: Small right hepatic cysts for which no follow-up is indicated. CT/Chest without Contrast IMPRESSION: 1. Medium-sized right pleural effusion with consolidative airspace disease in the right lower lobe consistent with pneumonia. 2. 4.3 cm ascending aortic ectasia. 3. Calcified and spiculated apical pleural parenchymal nodular scarring on the right and unchanged somewhat spiculated nodular density in the left apex. Electronically Signed: Mike Colbert DO at 22:19 EDT ,
== END | disposition home or self-care (01) ==
LOC: CT 17:42
PROVIDERS: PCP Family Medicine; Referring Provider Family Medicine; Visit Provider Family Medicine
DX: J18.9 Pneumonia, unspecified organism (principal)
CPT/HCPCS: 71250

== ENCOUNTER 2023-01-20 16:25 | Emergency (ER) | payer MEDICARE, MEDICAID, SELFPAY ==
[2023-01-20 16:27] VITALS: BP 126/88; PULSE 53; RESP 24; TEMP 36.4; O2SAT 90; BMI 27.7
[2023-01-20 16:44] VITALS: O2SAT 90
--- NOTE | 2023-01-20 16:50 | EKG12_ITS ---
Test Reason : SOB Blood Pressure : / mmHG Vent. Rate : 098 BPM Atrial Rate : 000 BPM P-R Int : 000 ms QRS Dur : 132 ms QT Int : 320 ms P-R-T Axes : 000 -24 111 degrees QTc Int : 408 ms Atrial fibrillation Left bundle branch block Abnormal ECG Confirmed by GELA BAKER MD ([id number]), proposal editor JOSHUA RODGERS ([id number]) on 01/22/2023 1:29:59 PM Referred By: Confirmed By:GELA BAKER MD
[2023-01-20 17:14] VITALS: O2SAT 97
[2023-01-20 17:16] LABS: Absolute Lymphocyte Count 1.12 X10^3/uL (0.83-4.51); Absolute Neutrophil Count 3.8 X10^3/uL (2.0-7.7); Basophil# 0.04 X10^3/uL; Basophil% 0.7 % (0-1); Eosinophil# 0.12 X10^3/uL; Eosinophils% 2.1 % (0-5); Hematocrit 45.2 % (40-54); Hemoglobin 14.9 g/dL (13.0-16.5); Lymphocyte # 1.12 X10^3/ul (0.83-4.51); Lymphocyte % 19.6 % (19-41); Mean Corpuscular Hgb 31.5 pg (27.0-32.0); Mean Corpuscular Volume 95.6 fL (80-94); Mean Platelet Vol. 8.8 fl (6.2-12.0); Monocyte# 0.59 X10^3/uL; Monocyte% 10.4 % (0-10); NRBC Flagged by Analyzer 0 % (0-5); Neutrophil # 3.79 X10^3/uL (2.7-7.7); Neutrophil % 66.5 % (47-70); Platelet Count 156 K/mm3 (150-450); RBC Distribution Width SD 45.8 fl (35.1-43.9); Red Blood Count 4.73 M/mm3 (4.6-6.2); White Blood Count 5.7 K/mm3 (4.4-11.0)
--- NOTE | 2023-01-20 17:18 | RAD_ITS ---
STUDY: X-RAY CHEST REASON FOR EXAM: Male, 82 years old. cough TECHNIQUE: PA and lateral views of the chest. COMPARISON: 01/06/2023, 01/16/2023 CT chest FINDINGS: Patchy airspace disease overlies the right lower lobe with likely small layering effusion. Left lower lobe atelectasis is present. There is no demonstrated pleural abnormality. Normal size heart. Normal mediastinum and prashant. Normal visualized pulmonary arteries. There is atherosclerotic tortuosity of the aortic arch and descending thoracic aorta. There is demineralization of the osseous structures. Normal visualized ribs, clavicles, and shoulders. There is no demonstrated abnormality of the visualized soft tissue structures of the upper abdomen. RAD/Chest PA and Lateral IMPRESSION: Similar right lower lobe patchy airspace disease and small effusion compared to prior CT consistent with acute infiltrate/pneumonia. Electronically Signed: Bakari Triplett DO at 17:37 EDT ,
[2023-01-20 17:34] LABS: ALB/GLOB Ratio 0.8 RATIO (0.9-2.4); AST(SGOT) 31 U/L (15-37); Alanine Aminotransfer ALT/SGPT 33 U/L (16-61); Albumin, Serum 3.1 g/dL (3.2-5.0); Alkaline Phosphatase 80 U/L (45-117); Anion Gap 4 (5-15); BUN 10 mg/dL (7-18); BUN/Creat Ratio 10.9 RATIO (10-20); Calcium,Total 8.9 mg/dL (8.5-10.1); Chloride 106 mmol/L (98-107); Creatinine, Serum 0.92 mg/dL (0.70-1.30); EST Glomerular Filtration Rate 84 mL/min (>60); Est Glom Filt Rate - Afr Amer 101 mL/min (>60); Estimated Creatinine Clearance 59.77 ml/min; Glucose 142 mg/dL (74-106); Potassium 3.7 mmol/L (3.5-5.1); Protein, Total 7.1 g/dL (6.4-8.2); Sodium Level 139 mmol/L (136-145)
--- NOTE | 2023-01-20 17:44 | ED.VIS.DYS ---
HPI History of Present Illness Chief Complaint: Shortness of Breath Informant: patient Narrative Narrative: Presents by EMS from home worsening dyspnea today.'s been having cough productive for last 2 weeks. No fevers. Patient on anticoagulants for history of A-fib. He states symptoms ongoing since his hospitalization was brought in for concerning stroke however had recurrent Mondragon's palsy. That is resolved. He is on chronic 2 L oxygen at home per remote tobacco history. He states symptoms worse when lays on his left side. Denies chest pains. Status post DuoNeb treatment by EMS brought to the ED for evaluation. After work-up, he was hospitalized in NovemberDecember 09 for 2 days for concern of aspiration pneumonia with CVA. Sent home on additional 5 days of Augmentin. He finished this up. He follow-up with pulmonology December 23 with symptoms persisting was given 10 Steph course of doxycycline and prednisone taper. Prior similar symptoms: [facility] Medical History Alcohol abuse Anxiety and depression BPH (benign prostatic hyperplasia) Bronchiectasis Chronic respiratory failure with hypoxia Essential hypertension Former smoker Gastric reflux History of bladder cancer HTN (hypertension) HX: anticoagulation Incomplete bladder emptying Lung nodule Mixed obstructive and restrictive ventilatory defect PAF (paroxysmal atrial fibrillation) Personal history of atrial fibrillation Restless legs Shortness of breath on exertion Sleep apnea Visual impairment Wears dentures Wears glasses Home Medications amlodipine 10 mg tablet 10 mg PO DAILY blood pressure 08/07/21 [History Last Taken 08/16/21 10 mg] multivitamin 1 tab PO DAILY vitamin 08/07/21 [History Last Taken 08/15/21] finasteride 5 mg tablet 5 mg PO DAILY prostate 08/08/21 [History Last Taken 08/15/21] omeprazole 20 mg capsule,delayed release 20 mg PO DAILY protonix 10/25/21 [History Last Taken Unknown] apixaban 5 mg tablet (Eliquis) 5 mg PO DAILY blood thinner 12/07/22 [History Last Taken Unknown] metoprolol succinate 50 mg tablet,extended release 24 hr 50 mg PO DAILY blood pressure 12/07/22 [History Last Taken Unknown] fluticasone fur. 100 mcg-umeclid 62.5 mcg-vilant 25 mcg inhalat.powder (Trelegy Ellipta) 1 inh inhalation DAILY 12/10/22 [History Last Taken Unknown] albuterol sulfate 90 mcg/actuation aerosol inhaler 2 puff inhalation Q4H PRN SOB #8.5 grams 12/23/22 [Rx Last Taken Unknown] doxycycline hyclate 100 mg tablet 100 mg PO BID #20 tabs 12/23/22 [Rx Last Taken Unknown] prednisone 10 mg tablet 10 mg PO QDAY #30 tabs 12/23/22 [Rx Last Taken Unknown] levofloxacin 750 mg tablet 750 mg PO DAILY #2 tabs 01/20/23 [Rx Last Taken Unknown] prednisone 20 mg tablet 20 mg PO .asdir #24 tabs 01/20/23 [Rx Last Taken Unknown] Allergy/AdvReac Type Severity Reaction Status Date / Time No Known Allergies Allergy Verified 12/23/22 14:07 Family History Mother Cancer Hypertension EtOH dependence Father Hypertension EtOH dependence Surgical History History of colonoscopy Hx of appendectomy Hx of tonsillectomy Social History Smoking Status: Former smoker Tobacco: How many years used: 53 Electronic Cigarette Use: not used how long ago did patient quit smoking: quit in 2001 alcohol intake: current alcohol intake frequency: holidays/special occasions only details: Hx 4 EtOH shots q HS. substance use type: does not use caffeine: No ROS ROS ED Constitutional Constitutional ED: Denies chills, fever(s) or sweats Eyes Eyes: Denies change in vision ENT ENT ED: Denies dysphagia or sore throat Cardiovascular Cardiovascular: Denies chest pain, leg edema, palpitations or racing heartbeat Respiratory/Chest Respiratory/Chest: Reports cough and dyspnea; Denies dyspnea on exertion Gastrointestinal Gastrointestinal: Denies abdominal pain, diarrhea, nausea or vomiting Genitourinary Genitourinary ED: Denies dysuria, hematuria or urinary frequency Musculoskeletal Musculoskeletal: Denies back pain, extremity pain or neck pain Integumentary Denies rash or wounds Neurologic Neurologic: Denies headache(s), paresthesias or weakness EXAM Physical Exam Const Vital Signs: 01/20/23 16:27 01/20/23 16:44 01/20/23 17:14 Temperature 97.6 F L Temperature Source Oral Pulse Rate 53 L Respiratory Rate 24 H Respiratory Effort Short of Breath Respiratory Pattern Tachypnea Blood Pressure 126/88 H Blood Pressure Mean 100 Pulse Ox 90 97 Oxygen Delivery Method Nasal Cannula Nasal Cannula Nasal Cannula Oxygen Flow Rate (L/min) 4 3 3 01/20/23 19:03 Temperature 97.5 F L Temperature Source Oral Pulse Rate 97 Respiratory Rate 22 H Respiratory Effort Respiratory Pattern Blood Pressure 106/81 H Blood Pressure Mean 89 Pulse Ox 93 Oxygen Delivery Method Nasal Cannula Oxygen Flow Rate (L/min) 2 Positive well nourished and well developed Constitutional Narrative: 3 L nasal cannula no respiratory distress. General Appearance ED: well developed and NAD HEENT Reports moist mucous membranes normocephalic and atraumatic Eyes PERRL, EOMs intact bilaterally and conjunctivae normal General Eye ED: Yes normal appearance of both eyes Neck no lymphadenopathy and supple General: Negative for tenderness Chest Wall Chest: Negative for tenderness Resp normal respiratory effort and normal air movement Effort and Inspection: symmetric chest movement; Negative for respiratory distress Cardio regular rate and no murmurs Rhythm: abnormal rhythm Peripheral Pulses: pulses 2+ throughout GI normal to inspection, nondistended, normoactive bowel sounds and non-tender Palpation: Negative for guarding or rebound tenderness present Back/Spine no CVA tenderness and no thoracic nor lumbar tenderness Extremity normal to inspection General Extremety ED: Negative for edema or tenderness General Extremity: Negative for edema Neuro oriented x3 and no sensory deficits noted Sensorium / Orientation: awake and alert Skin no rashes or lesions noted and no wounds MDM MDM MDM Narrative Medical decision making narrative: Interventions / MDM: Differential diagnosis: Atrial fibrillation RVR, pneumonia, COPD exacerbation Diagnosis considered but do not suspect: Pulmonary embolism however he is on Eliquis My EKG interpretation: Atrial fibrillation rate of 98, left bundle branch block, no acute findings. Left bundle branch block compared to December 10, 2022 however is normal sinus rhythm at that time. Imaging independently reviewed and interpreted by myself: 2 view chest x-ray: Right lower lobe infiltrate similar to previous x-ray. This is also read by radiology. External documents reviewed: Hospitalization end of November 2022, pulmonary office visit December 23, 2022. Test considered but not ordered:N/A ED course: Patient noted be in A-fib heart rate fluctuating 90s to 120s. EKG confirms A-fib. Status post DuoNeb no current wheezing. Chest x-ray laboratory studies ordered. Patient weaned down to his 2 L of oxygen, heart rate without treatment controlled with A-fib. Labs are stable. Chest x-ray similar infiltrate findings from previously. Patient history of COPD with wheezing prior to arrival. He is not diabetic. He is given steroids. Discussed with family in the room on reevaluation, he has been on Levaquin for to 5-day course started by his PCP this past Thursday. Steroids were not started. This was started today. He is clinically stable on 2 L. He is ambulated had a brief dip in his pulse ox however back up to 88% in the room on his 2 L. He is in no respiratory distress. He is not tachycardic. Discussed possibility of admission, however he would like to try to go home. His antibiotics will be extended for 7-day course, his steroids will be discontinued and tapered. He will follow-up as an outpatient with strict return precautions. All questions were answered. Re-evaluation: stable Disposition discussed with patient/family/significant other: Patient and family Case discussed with consulting clinician: N/A This note was generated with [employer] dictation software. It may contain incorrect words, spelling, and punctuation that were not noted in checking the note before signing. Lab Data Attestation: I reviewed the patient's lab results. Labs: Laboratory Results - last 24 hr 01/20/23 17:10 WBC 5.7 RBC 4.73 Hgb 14.9 Hct 45.2 MCV 95.6 H MCH 31.5 MCHC 33.0 RDW Std Deviation 45.8 H RDW Coeff of Glenn 13.0 Plt Count 156 MPV 8.8 Immature Gran % (Auto) 0.700 Neut % (Auto) 66.5 Lymph % (Auto) 19.6 Tucker % (Auto) 10.4 H Eos % (Auto) 2.1 Baso % (Auto) 0.7 Absolute Neuts (auto) 3.8 Absolute Lymphs (auto) 1.12 Nucleated RBC % 0 Sodium 139 Potassium 3.7 Chloride 106 Carbon Dioxide 29.0 Anion Gap 4 L BUN 10 Creatinine 0.92 Estim Creat Clear Calc 59.77 Est GFR (MDRD) Af Amer 101 Est GFR (MDRD) Non-Af 84 BUN/Creatinine Ratio 10.9 Glucose 142 H Calcium 8.9 Total Bilirubin 0.50 AST 31 ALT 33 Alkaline Phosphatase 80 Total Protein 7.1 Albumin 3.1 L Globulin 4.0 Albumin/Globulin Ratio 0.8 L Radiography Diagnostic Testing: Clinical Impression(s) from Imaging Studies Chest X-Ray 01/20/23 17:18 IMPRESSION: Similar right lower lobe patchy airspace disease and small effusion compared to prior CT consistent with acute infiltrate/pneumonia. Electronically Signed: Bakari Triplett DO at 17:37 EDT , Discharge Plan Triage Chief Complaint: Shortness of Breath ED Provider: Wilber Magallon Dx/Rx/DC Orders Clinical Impression: Bronchiectasis, Pneumonia, Atrial fibrillation, controlled Instructions: ED AFIB, ED COPD Flare, ED Pneumonia (Adult) Prescriptions: New levofloxacin 750 mg tablet 750 mg PO DAILY Qty: 2 0RF Rx Instructions: extend additional 2 days after finishing 5 days course. prednisone 20 mg tablet 20 mg PO .asdir Qty: 24 0RF Rx Instructions: 3 tabs daily for 4 days, then 2 tabs daily for 4 days then 1 tab daily for 4 days. No Action amlodipine 10 mg tablet 10 mg PO DAILY multivitamin Tablet 1 tab PO DAILY finasteride 5 mg tablet 5 mg PO DAILY omeprazole 20 mg capsule,delayed release(DR/EC) 20 mg PO DAILY Trelegy Ellipta 100-62.5-25 mcg blister with device 1 inh inhalation DAILY doxycycline hyclate 100 mg tablet 100 mg PO BID Qty: 20 0RF prednisone 10 mg tablet 10 mg PO QDAY Qty: 30 0RF Rx Instructions: take 4 tabs for three days, then 3 tabs for three days, then 2 tabs for three days, then 1 tab for 3 days albuterol sulfate 90 mcg/actuation HFA aerosol inhaler 2 puff inhalation Q4H PRN (Reason: SOB) Qty: 8.5 3RF Eliquis 5 mg tablet 5 mg PO DAILY Patient Comments: PT REPORTS HE TAKES IT ONCE DAILY metoprolol succinate 50 mg tablet extended release 24 hr 50 mg PO DAILY Patient Comments: take 1 tablet by mouth once daily Primary Care Provider: Art Grey Referrals: Art Gery MD [Primary Care Provider] - 3-5 Days Activity Restrictions/Additional Instructions: Residual pneumonia seen on chest x-ray right lower lobe. Finish your Levaquin and will add additional 2 days for a total of 7 days. Take the prednisone taper as prescribed. EKG is A-fib rate controlled today. Continue your metoprolol and Eliquis. Follow-up with your doctor. Return if any worsening symptoms. Disposition Disposition: Home, Self Care Discharge Date/Time: 01/20/23 19:25
[2023-01-20] MEDS: MethylPREDNISolone 125 MG/2 ML Vial IV (17:58)
[2023-01-20 19:03] VITALS: BP 106/81; PULSE 97; RESP 22; TEMP 36.4; O2SAT 93
== END 2023-01-20 19:25 | disposition home or self-care (01) ==
PROVIDERS: Emergency Provider Emergency Medicine; PCP Family Medicine; Visit Provider Emergency Medicine
DX: Z20.822 Contact with and (suspected) exposure to COVID-19 (principal); J96.11 Chronic respiratory failure with hypoxia; I48.0 Paroxysmal atrial fibrillation; J47.0 Bronchiectasis with acute lower respiratory infection; J18.9 Pneumonia, unspecified organism; I10 Essential (primary) hypertension; N40.1 Benign prostatic hyperplasia with lower urinary tract symptoms; G47.30 Sleep apnea, unspecified; R39.14 Feeling of incomplete bladder emptying; Z99.81 Dependence on supplemental oxygen; Z79.02 Long term (current) use of antithrombotics/antiplatelets; Z79.52 Long term (current) use of systemic steroids; Z79.899 Other long term (current) drug therapy; Z87.891 Personal history of nicotine dependence
CPT/HCPCS: 71046; 80053; 85025; 87428; 87633; 93005; 96374; 99285; A4216

== ENCOUNTER → 2023-01-29 | Outpatient (CLI) | payer MEDICARE, MEDICAID, SELFPAY ==
--- NOTE | 2023-01-29 14:20 | RAD_ITS ---
INDICATION: PLEURAL EFFUSION EXAMINATION/TECHNIQUE: X-RAY - XR Chest 2 Views COMPARISON: Prior studies dated: January 20, [address] dated January 16, 2023 FINDINGS: LINES/DEVICES: None. LUNGS: There is a stable right pleural effusion associated with right basilar patchy opacities. There are stable prominent interstitial markings within the left lower lung. There are stable right apical calcifications may be secondary to scarring. No pneumothorax. MEDIASTINUM AND CARDIOVASCULAR STRUCTURES: Cardiac silhouette not enlarged. Central airways and mediastinal contour are unremarkable. BONES AND SOFT TISSUES: Unremarkable. RAD/Chest PA and Lateral IMPRESSION: Stable right pleural effusion associated with stable right basilar pneumonia and/or atelectasis. Electronically Signed: Queenie Chan MD at 11:07 EDT ,
[2023-01-29 14:26] LABS: Bacteria 0 SEEN /hpf (None Seen); Mucous, Urine 0 SEEN /hpf (<or=2+); White Blood Cells 0 SEEN /hpf (0-5)
[2023-01-29 17:52] LABS: Color, Urine Yellow (Yellow); Glucose, Dipstick Normal (Normal); Ketone-Dipstick Negative (Negative); Leukocyte Esterase-Dipstick Negative /ul (Negative); Nitrite-Dipstick Negative (Negative); Occult Blood-Urine 150 /ul (Negative); Protein-Dipstick 30 mg/dl (Negative); Urine Bilirubin Dipstick Negative (Negative); Urine Clarity Clear (Clear); Urine Urobilinogen Normal (Normal)
[2023-01-29 18:08] LABS: Red Blood Cells-Urine 10-25 SEEN /hpf (0-5); Squamous Epithelial Cells - UA 0-5 SEEN /hpf (0-5)
[2023-01-29 18:25] LABS: Anion Gap 6 (5-15); BUN 16 mg/dL (7-18); BUN/Creat Ratio 20.1 RATIO (10-20); Calcium,Total 8.2 mg/dL (8.5-10.1); Chloride 105 mmol/L (98-107); EST Glomerular Filtration Rate 98 mL/min (>60); Est Glom Filt Rate - Afr Amer 119 mL/min (>60); Glucose 119 mg/dL (74-106); Potassium 3.4 mmol/L (3.5-5.1); Sodium Level 141 mmol/L (136-145)
[2023-01-29 18:27] LABS: Absolute Lymphocyte Count 1.08 X10^3/uL (0.83-4.51); Absolute Neutrophil Count 7.6 X10^3/uL (2.0-7.7); Basophil# 0.03 X10^3/uL; Basophil% 0.3 % (0-1); Eosinophil# 0.01 X10^3/uL; Eosinophils% 0.1 % (0-5); Hematocrit 44.5 % (40-54); Hemoglobin 14.6 g/dL (13.0-16.5); Lymphocyte # 1.08 X10^3/ul (0.83-4.51); Lymphocyte % 11.4 % (19-41); Mean Corp Hgb Conc 32.8 g/dL (32-36); Mean Corpuscular Hgb 31.7 pg (27.0-32.0); Mean Corpuscular Volume 96.7 fL (80-94); Monocyte# 0.53 X10^3/uL; Monocyte% 5.6 % (0-10); NRBC Flagged by Analyzer 0 % (0-5); Neutrophil # 7.59 X10^3/uL (2.7-7.7); Neutrophil % 80.5 % (47-70); Platelet Count 231 K/mm3 (150-450); RBC Distribution Width CV 13.5 % (11.6-14.6); RBC Distribution Width SD 47.7 fl (35.1-43.9); White Blood Count 9.4 K/mm3 (4.4-11.0)
[2023-01-29 18:39] LABS: BNP,B-Type NATRIURETIC PEPTIDE 677.9 pg/mL (0-100)
--- NOTE | 2023-01-30 | CYSPIN_PTH ---
PATIENT: MIKEY KIMBALL LOC: [facility] U#:[id number] AGE/SX: 82/M ROOM: RE01/29/[address]: Dr. Art Grey MD : [id number] BED: DIS: 01/29/2023 SPEC #: [id number] RECD: 02/02/23 09:12 STATUS: MILAN BLANCO #: [id number] COREY: 01/30/23 00:[address]: Art Grey DEPT: CYTOLOGY RECD BY: Franck Nevarez Tissues: Urine Procedures: Pap Stain (control) Special Stain Group II Cytospin Fluid HEADER OPERATION: Not noted PRE-OP DIAGNOSIS: Not noted TISSUE SUBMITTED: Urine for cytology DIAGNOSIS CYTOLOGY Urine for cytology (cytospin): Negative for high-grade urothelial carcinoma (NHGUC), Margarette System Category II. See comment. AM:brian 02/02/2023 COMMENT The Margarette System for urine cytology diagnostic categorization was used in the evaluation of this case. Crystalline debris is present. Clinical correlation is suggested. CYTOLOGY STUDY Slides are reviewed. CYTOLOGY GROSS Received is 20 ml of yellow cloudy fluid labeled with the patient's name and and designated per the requisition as urine. Submitted for cytology preparation. / brian 01/30/2023 TC:5 CPT: 88019
[2023-01-30 19:57] LABS: Cytology, Body Fluid / CSF SEE PATHOLOGY REPORT
== END | disposition home or self-care (01) ==
LOC: MTLAB 14:19
PROVIDERS: PCP Family Medicine; Visit Provider Family Medicine
DX: J90 Pleural effusion, not elsewhere classified (principal); J18.9 Pneumonia, unspecified organism; R06.02 Shortness of breath; R31.9 Hematuria, unspecified
CPT/HCPCS: 36415; 71046; 80048; 81001; 83880; 85025; 87086; 87088; 88108; 88313

== ENCOUNTER 2023-02-06 05:07 | Emergency (ER) | payer MEDICARE, MEDICAID, SELFPAY ==
[2023-02-06 05:08] VITALS: BP 143/80; PULSE 124; RESP 35; TEMP 36.5; O2SAT 94; BMI 27.9
[2023-02-06 05:13] VITALS: O2SAT 94
--- NOTE | 2023-02-06 05:42 | ED.RN ---
PER DR. PINA, NO SITTER NEEDED.
--- NOTE | 2023-02-06 05:45 | RAD_ITS ---
INDICATION: dyspnea EXAMINATION/TECHNIQUE: X-RAY - XR Chest 1 View COMPARISON: Prior study dated: 01/29/2023 FINDINGS: LINES/DEVICES: None. LUNGS: The lungs are well expanded. The demonstration of a right basilar airspace opacity showing mild improvement in aeration from prior. Small right pleural effusion remains. No pneumothorax. No edema. MEDIASTINUM AND CARDIOVASCULAR STRUCTURES: Cardiac silhouette is unchanged. Central airways and mediastinal contour are unremarkable. BONES AND SOFT TISSUES: Unremarkable. RAD/Chest 1 View (Portable) IMPRESSION: Small right pleural effusion with improving right basilar airspace opacity. Electronically Signed: Pk Batista MD at 5:59 EDT ,
[2023-02-06 05:51] LABS: Absolute Lymphocyte Count 1.49 X10^3/uL (0.83-4.51); Basophil# 0.04 X10^3/uL; Basophil% 0.5 % (0-1); Eosinophil# 0.08 X10^3/uL; Eosinophils% 0.9 % (0-5); Hematocrit 43.4 % (40-54); Hemoglobin 14.3 g/dL (13.0-16.5); Lymphocyte # 1.49 X10^3/ul (0.83-4.51); Lymphocyte % 17.1 % (19-41); Mean Corp Hgb Conc 32.9 g/dL (32-36); Mean Corpuscular Hgb 31.4 pg (27.0-32.0); Mean Corpuscular Volume 95.2 fL (80-94); Monocyte# 1.04 X10^3/uL; NRBC Flagged by Analyzer 0 % (0-5); Neutrophil # 6.01 X10^3/uL (2.7-7.7); Platelet Count 129 K/mm3 (150-450); RBC Distribution Width CV 13.3 % (11.6-14.6); RBC Distribution Width SD 47.1 fl (35.1-43.9); Red Blood Count 4.56 M/mm3 (4.6-6.2); White Blood Count 8.7 K/mm3 (4.4-11.0)
[2023-02-06 06:17] LABS: Anion Gap 4 (5-15); BUN 17 mg/dL (7-18); BUN/Creat Ratio 18.7 RATIO (10-20); Calcium,Total 8.6 mg/dL (8.5-10.1); Chloride 103 mmol/L (98-107); Creatinine, Serum 0.91 mg/dL (0.70-1.30); EST Glomerular Filtration Rate 85 mL/min (>60); Est Glom Filt Rate - Afr Amer 102 mL/min (>60); Estimated Creatinine Clearance 60.43 ml/min; Glucose 121 mg/dL (74-106); Magnesium 2.2 mg/dL (1.6-2.6); Potassium 3.6 mmol/L (3.5-5.1); Sodium Level 139 mmol/L (136-145); Thyroid Stim Hormone (TSH) 4.52 uIU/mL (0.358-3.74); Troponin-I HS 17 pg/mL (3.0-78.0)
[2023-02-06 06:42] LABS: Bacteria 0 SEEN /hpf (None Seen); Mucous, Urine 0 SEEN /hpf (<or=2+)
[2023-02-06 06:45] LABS: Color, Urine Yellow (Yellow); Glucose, Dipstick Normal (Normal); Ketone-Dipstick 5 mg/dl (Negative); Leukocyte Esterase-Dipstick 25 /ul (Negative); Nitrite-Dipstick Negative (Negative); Occult Blood-Urine 250 /ul (Negative); Protein-Dipstick 30 mg/dl (Negative); Specific Gravity, Urine 1.015 (1.002-1.030); Urine Bilirubin Dipstick Negative (Negative); Urine Clarity Clear (Clear); Urine Urobilinogen 1 mg/dl (Normal); Urine pH 6.5 (5.0 - 8.0)
[2023-02-06 07:06] LABS: Red Blood Cells-Urine 50-100 SEEN /hpf (0-5); Squamous Epithelial Cells - UA 0-5 SEEN /hpf (0-5); White Blood Cells 5-10 SEEN /hpf (0-5)
[2023-02-06 07:41] LABS: BNP,B-Type NATRIURETIC PEPTIDE 140.9 pg/mL (0-100)
--- NOTE | 2023-02-06 07:48 | EX.ED.DYSGE1 ---
HPI <Dr. Nathan Arreguin DO - Last Filed: 02/10/23 21:57> History of Present Illness Chief Complaint: Weakness Informant: patient and EMS Narrative Narrative: Patient is an 82-year-old male who lives at home alone with past medical history of atrial fibrillation/flutter currently on Eliquis as well as hypertension and congestive heart failure who requires 2 to 3 L nasal cannula oxygen /. He has been seen in the ER on January 06 January 20 January 29 and then today for complaint of generalized weakness. His work-up during those times show congestive heart failure with questionable pneumonia and he was placed on antibiotics. He states he has been taking all of his medications as directed by his doctor but despite doing this he still feels short of breath and generalized fatigue and states he is not caring for himself well. He states that he has an appoint with his family doctor today but just felt too weak in order to wait and therefore called EMS to be brought in for evaluation Of note the patient appears very frustrated he makes offhand comments that if he keeps feeling like this then he should not even live. He states that this is more suicidal thoughts based on his poor health than true ideation [facility] <Dr. Nathan Arreguin DO - Last Filed: 02/10/23 21:57> [facility] Medical History Alcohol abuse Anxiety and depression BPH (benign prostatic hyperplasia) Bronchiectasis Chronic respiratory failure with hypoxia Essential hypertension Former smoker Gastric reflux History of bladder cancer HTN (hypertension) HX: anticoagulation Incomplete bladder emptying Lung nodule Mixed obstructive and restrictive ventilatory defect PAF (paroxysmal atrial fibrillation) Personal history of atrial fibrillation Restless legs Shortness of breath on exertion Sleep apnea Visual impairment Wears dentures Wears glasses Home Medications amlodipine 10 mg tablet 10 mg PO DAILY blood pressure 08/07/21 [History Last Taken 08/16/21 10 mg] multivitamin 1 tab PO DAILY vitamin 08/07/21 [History Last Taken 08/15/21] finasteride 5 mg tablet 5 mg PO DAILY prostate 08/08/21 [History Last Taken 08/15/21] omeprazole 20 mg capsule,delayed release 20 mg PO DAILY protonix 10/25/21 [History Last Taken Unknown] apixaban 5 mg tablet (Eliquis) 5 mg PO DAILY blood thinner 12/07/22 [History Last Taken Unknown] metoprolol succinate 50 mg tablet,extended release 24 hr 50 mg PO DAILY blood pressure 12/07/22 [History Last Taken Unknown] fluticasone fur. 100 mcg-umeclid 62.5 mcg-vilant 25 mcg inhalat.powder (Trelegy Ellipta) 1 inh inhalation DAILY 12/10/22 [History Last Taken Unknown] albuterol sulfate 90 mcg/actuation aerosol inhaler 2 puff inhalation Q4H PRN SOB #8.5 grams 02/02/23 [Rx Last Taken Unknown] furosemide 40 mg tablet (Lasix) 40 mg PO DAILY 02/02/23 [History Last Taken Unknown] potassium chloride 20 mEq tablet,extended release 20 meq PO DAILY 02/02/23 [History Last Taken Unknown] Allergy/AdvReac Type Severity Reaction Status Date / Time No Known Allergies Allergy Verified 02/06/23 05:08 Family History Mother Cancer Hypertension EtOH dependence Father Hypertension EtOH dependence Surgical History History of colonoscopy Hx of appendectomy Hx of tonsillectomy Social History Smoking Status: Former smoker Tobacco: How many years used: 53 Electronic Cigarette Use: not used how long ago did patient quit smoking: quit in 2001 alcohol intake: current alcohol intake frequency: holidays/special occasions only details: Hx 4 EtOH shots q HS. substance use type: does not use caffeine: No ROS <Dr. Nathan Arreguin DO - Last Filed: 02/10/23 21:57> ROS ED Constitutional Constitutional ED: Denies chills or fever(s) Eyes Eyes: Denies change in vision ENT ENT ED: Denies sore throat Cardiovascular Cardiovascular: Reports palpitations; Denies chest pain Respiratory/Chest Respiratory/Chest: Reports dyspnea; Denies cough Gastrointestinal Gastrointestinal: Denies abdominal pain, diarrhea, nausea or vomiting Genitourinary Genitourinary ED: Denies dysuria Musculoskeletal Musculoskeletal: Denies myalgias Integumentary Denies rash Neurologic Neurologic: Reports weakness; Denies headache(s) Psychiatric Psychiatric: Reports suicidal thoughts Hematologic/Lymphatic Hematologic/Lymphatic: Reports easy bleeding and easy bruising EXAM <Dr. Nathan Arreguin DO - Last Filed: 02/10/23 21:57> Physical Exam Const Vital Signs: 02/06/23 05:08 02/06/23 05:13 02/06/23 05:22 Temperature 97.7 F L Temperature Source Temporal Pulse Rate 124 H Respiratory Rate 35 H Respiratory Effort Normal Blood Pressure 143/80 H Blood Pressure Mean 101 Pulse Ox 94 94 Oxygen Delivery Method Nasal Cannula Nasal Cannula Oxygen Flow Rate (L/min) 2 2 Positive well nourished and well developed General Appearance ED: well developed HEENT HEENT Narrative: Mucous membranes are dry and tacky No airway edema or compromise. No secondary changes in the posterior pharynx to suggest infection Eyes PERRL and EOMs intact bilaterally General Eye ED: Negative for pale conjunctiva Neck supple and no JVD Chest Wall palpation of chest normal Chest Narrative: No bony deformity or crepitance of the chest wall Resp Resp Narrative: Patient is tachypneic and breath sounds are diminished throughout with faint crackles noted in bilateral bases slightly greatest on the right Cardio Rate: other Other Details: Irregularly irregular rhythm with tachycardic rate consistent with past medical history of atrial fibrillation/flutter GI normal to inspection, nondistended, normoactive bowel sounds, non-tender, non-distended and no masses GI Narrative: No voluntary guarding or rigidity. No pulsatile mass or fluid wave. Auscultation: normoactive bowel sounds Palpation: soft Extremity Extremity Narrative: +1 pitting edema to the bilateral lower extremities is equal and symmetric with negative Homans' sign bilaterally Neuro oriented x3 and CN's II-XII intact bilaterally Sensorium / Orientation: alert Psych Psych Narrative: Patient has a flat affect with suicidal thoughts Skin no rashes or lesions noted General Skin Exam: Negative for jaundice <Dr. Milo Qiu MD - Last Filed: 02/06/23 11:07> Physical Exam Const Vital Signs: 02/06/23 05:08 02/06/23 05:13 02/06/23 05:22 Temperature 97.7 F L Temperature Source Temporal Pulse Rate 124 H Respiratory Rate 35 H Respiratory Effort Normal Blood Pressure 143/80 H Blood Pressure Mean 101 Pulse Ox 94 94 Oxygen Delivery Method Nasal Cannula Nasal Cannula Oxygen Flow Rate (L/min) 2 2 MDM <Dr. Nathan Arreguin DO - Last Filed: 02/10/23 21:57> MDM MDM Narrative Medical decision making narrative: Patient presented to the ER tachypneic but satting in the mid 90s on his normal 2 L and his heart rate was slightly elevated at 120 approximately consistent with atrial fibrillation/flutter but he had not had his daily medication which chart review reveals metoprolol which would help control rate. Prior to ordering studies chart review was performed and showed to his multiple visits as well as previous x-ray and laboratory values and the fact he had a negative COVID and flu swab and negative respiratory viral panel. Therefore I felt no need for viral swabs at this time. Basic labs were repeated to check for potential causes of his weakness such as acute blood loss anemia acute kidney injury electrolyte derangement urinary tract infection or non-STEMI. Troponin is normal at 17 and chart review reveals that on December 07 his value was also 17 and therefore I do not feel there is need for a secondary troponin as his value has remained flat over the course of the last 2-month. Blood work revealed no signs of anemia and there is no clinically significant electrolyte derangement noted. The patient's proBNP has decreased from approximately 680-140 and this correlates with the patient's chest x-ray shows improving pleural effusion. His procalcitonin is not clinically elevated either and therefore I do not feel there is need for continued antibiotic. The patient made offhand comments about not wanting to live but this is secondary to his poor health and stressful situation. I do not feel there is a need for pink slip at this time. However the patient indicates no need by recurrent ER visits but by voicing his concern in the ER that he is unable to care for himself and therefore social work will be contacted to seek potential placement. At this time the evaluation by social work is still pending so the [facility] Qiu. Disposition will be per social work History & Record Review Discussion w/independent historian: Patient Lab Data Attestation: I reviewed the patient's lab results. Labs: Laboratory Results - last 24 hr 02/06/23 02/06/23 05:15 06:35 WBC 8.7 RBC 4.56 L Hgb 14.3 Hct 43.4 MCV 95.2 H MCH 31.4 MCHC 32.9 RDW Std Deviation 47.1 H RDW Coeff of Glenn 13.3 Plt Count 129 L MPV 10.0 Immature Gran % (Auto) 0.500 Neut % (Auto) 69.0 Lymph % (Auto) 17.1 L [place] % (Auto) 12.0 H Eos % (Auto) 0.9 Baso % (Auto) 0.5 Absolute Neuts (auto) 6.0 Absolute Lymphs (auto) 1.49 Nucleated RBC % 0 Sodium 139 Potassium 3.6 Chloride 103 Carbon Dioxide 32.0 Anion Gap 4 L BUN 17 Creatinine 0.91 Estim Creat Clear Calc 60.43 Est GFR (MDRD) Af Amer 102 Est GFR (MDRD) Non-Af 85 BUN/Creatinine Ratio 18.7 Glucose 121 H Calcium 8.6 Magnesium 2.2 Troponin I High Sens 17 B-Natriuretic Peptide 140.9 H Procalcitonin 0.11 H TSH 4.52 H Urine Color Yellow Urine Clarity Clear Urine pH 6.5 Ur Specific [place] 1.015 Urine Protein 30 H Urine Glucose (UA) Normal Urine Ketones 5 H Urine Occult Blood 250 H Urine Nitrite Negative Urine Bilirubin Negative Urine Urobilinogen 1 H Ur Leukocyte Esterase 25 H Urine RBC 50-100 SEEN Urine WBC 5-10 SEEN Ur Squamous Epith Cells 0-5 SEEN Urine Bacteria 0 SEEN Urine Mucus 0 SEEN Radiography Diagnostic Testing: Clinical Impression(s) from Imaging Studies Chest X-Ray 02/06/23 05:45 IMPRESSION: Small right pleural effusion with improving right basilar airspace opacity. Electronically Signed: Pk Batista MD at 5:59 EDT Reading Location ID and State: [facility] / [place] Tel , Service support , Chest x-ray as interpreted by the emergency medicine physician reveals right pleural effusion with improving bibasilar airspace opacities <Dr. Milo Qiu MD - Last Filed: 02/06/23 11:07> [facility] Lab Data Labs: Laboratory Results - last 24 hr 02/06/23 02/06/23 05:15 06:35 WBC 8.7 RBC 4.56 L Hgb 14.3 Hct 43.4 MCV 95.2 H MCH 31.4 MCHC 32.9 RDW Std Deviation 47.1 H RDW Coeff of [place] 13.3 Plt Count 129 L MPV 10.0 Immature Gran % (Auto) 0.500 Neut % (Auto) 69.0 Lymph % (Auto) 17.1 L [place] % (Auto) 12.0 H Eos % (Auto) 0.9 Baso % (Auto) 0.5 Absolute Neuts (auto) 6.0 Absolute Lymphs (auto) 1.49 Nucleated RBC % 0 Sodium 139 Potassium 3.6 Chloride 103 Carbon Dioxide 32.0 Anion Gap 4 L BUN 17 Creatinine 0.91 Estim Creat Clear Calc 60.43 Est GFR (MDRD) Af Amer 102 Est GFR (MDRD) Non-Af 85 BUN/Creatinine Ratio 18.7 Glucose 121 H Calcium 8.6 Magnesium 2.2 Troponin I High Sens 17 B-Natriuretic Peptide 140.9 H Procalcitonin 0.11 H TSH 4.52 H Urine Color Yellow Urine Clarity Clear Urine pH 6.5 Ur Specific [place] 1.015 Urine Protein 30 H Urine Glucose (UA) Normal Urine Ketones 5 H Urine Occult Blood 250 H Urine Nitrite Negative Urine Bilirubin Negative Urine Urobilinogen 1 H Ur Leukocyte Esterase 25 H Urine RBC 50-100 SEEN Urine WBC 5-10 SEEN Ur Squamous Epith Cells 0-5 SEEN Urine Bacteria 0 SEEN Urine Mucus 0 SEEN Radiography Diagnostic Testing: Clinical Impression(s) from Imaging Studies Chest X-Ray 02/06/23 05:45 IMPRESSION: Small right pleural effusion with improving right basilar airspace opacity. Electronically Signed: Pk Batista MD at 5:59 EDT Reading Location ID and State: [address] [place] [address] Tel , Service support , Management Discussion w/another healthcare provider: Hospitalist and Food And Beverage Outlets Manager ([facility] Dr. Monroy) Treatment and Re-Evaluation Comments:: Patient checked out to me for social work to evaluate and further disposition. Patient was evaluated by social work, from a suicidal thought standpoint, he has been safety plan and can follow-up as an outpatient. With regards to his weakness, he states he feels stronger now, his neighbor who is his healthcare power of banking attorney and the one who helps to care for him, is here and states she can care for him at home, they both refuse intermediate, he is refusing admission at this time which I also offered, and both are comfortable with him being discharged home. I believe at this time he has the capacity to make this decision. Furthermore, his pulse has been mostly in the 60s and 70s and he has been rate controlled with regards to his paroxysmal A-fib/flutter. Additionally, patient has an outpatient appointment with his PCP scheduled for today at 1600. Discharge Plan Triage Chief Complaint: Weakness ED Provider: Nathan Arreguin Dx/Rx/DC Orders Clinical Impression: Chronic respiratory failure with hypoxia, Atrial fibrillation, Current use of exterminator helper termite anticoagulation, Pleural effusion, Complete left bundle branch block, Adult failure to thrive Instructions: ED Weakness (Uncertain Cause) Prescriptions: No Action amlodipine 10 mg tablet 10 mg PO DAILY multivitamin Tablet 1 tab PO DAILY finasteride 5 mg tablet 5 mg PO DAILY omeprazole 20 mg capsule,delayed release(DR/EC) 20 mg PO DAILY furosemide [Lasix] 40 mg tablet 40 mg PO DAILY potassium chloride 20 mEq tablet extended release 20 meq PO DAILY albuterol sulfate 90 mcg/actuation HFA aerosol inhaler 2 puff inhalation Q4H PRN (Reason: SOB) Qty: 8.5 3RF Trelegy Ellipta 100-62.5-25 mcg blister with device 1 inh inhalation DAILY Eliquis 5 mg tablet 5 mg PO DAILY Patient Comments: PT REPORTS HE TAKES IT ONCE DAILY metoprolol succinate 50 mg tablet extended release 24 hr 50 mg PO DAILY Patient Comments: take 1 tablet by mouth once daily Primary Care Provider: Art Grey Referrals: Art Grey MD [Primary Care Provider] - [facility] appointment Disposition Disposition: Home, Self Care Discharge Date/Time: 02/06/23 11:10
[2023-02-06 07:53] LABS: Procalcitonin 0.11 ng/mL (0.00-0.09)
--- NOTE | 2023-02-06 09:58 | CM.ED ---
Social Work SW performed chart review, HCPOA on file as of 2022 and indicates patient did not complete LW. Patient's HCPOA is his friend/neighbor Keyonna with alternates being friends Naa Blunt and Naa Mccall. Shell Vargas MSW, MADHU
[2023-02-06] MEDS: Metoprolol(XL)Succ 50 MG Tablet PO (10:24)
--- NOTE | 2023-02-06 10:45 | CM.ED ---
Social Work Psychiatric Assessment Reason for Consult: mental health/ discharge planning Informants: Patient, Mehul and patient?s KENNETH Newby Chief Complaint: Patient reports ?weakness over the past three weeks?. Demographics: Patient is a 82-year-old who identifies as a heterosexual male. Patient is from first after 42 year marriage and from second of 14 years. Patient has 7 children, 5 have and 2 live in [place]. 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 Mental Health Treatment/ History: Patient reports no current or previous MH services, no MH diagnosis nor MH medications and has never been to a psychiatric hospital. ? Supports/ Resources: Patient identified his neighbor/KENNETH Newby as his main support. Patient pays for an aide to come clean his home twice a month and was deemed ineligible for [facility] services. Triggers/ stressors: Patient reports his weakness has been a stressor. ? Patient reports decrease in sleep as well as decrease in appetite. Legal Issues: None reported Coping Skills: Patient reports he spends time with his dog, Whitney or goes to his neighbors, Keyonna. ??? Abuse History: ? Patient denied. ?? Substance Abuse Hx: Patient denies substance use and reports occasional drinking. Patient reports family history of AOD use. ? Risk to Self/Others: ? Suicidal: SW assisted patient in completing the [place] Suicide Screening, patient is low risk for suicide. Patient reports having suicidal thoughts for the past few days due to his physical health decline. Patient explained his thoughts are controllable, last for a short period of time and have resolved. Patient explained he has talked with his neighbor Keyonna about his thoughts and feel Keyonna and his dog Whitney have stopped him from acting on his thoughts. Patient reports he has guns at home and would show the gun to police for them to shoot him. Patient explained he has no intention on acting on that plan explaining ?that?s a stupid way to go out?. Patient reports no history of SI or psychiatric hospital stays. ? Homicidal: Patient reports when his ex- left him, the patient had thoughts about hurting the syd she left the patient for, however, patient explained he realized it was his ex-?s choice and came to terms with her decision. ? Violence: Patient denied but reports history of breaking things when he was younger, explaining he struggled being told ?no?. ??? Mental Status Exam: ? Orientation x4 ? Memory: good ? Appearance:? appropriate ? Mood/ affect: Patient is tearful when discussing his neighbor passing away in October. ? Communication Pattern: responds to questions ? Thought Process: rational, denies A/VH ? General Intellectual Functioning: average Judgement: fair Insight: fair? Assessment: LORENA met with patient and introduced herself and role as [facility] Furnace Caretaker. Patient was agreeable to speak to social work. SW then utilized open and close ended questions to gather information for patient?s assessment. Patient was receptive and cooperative. Patient reports struggling with SI due to a decline in his physical health but reports those thoughts have resolved. Patient is low risk for suicide based on [place] Suicide Screening. Patient reports no current intent to hurt himself nor history of SI. SW engaged patient in conversation regarding his physical health and support at home. Patient reports his neighbor/HCPOA Keyonna fills his weekly pills, assists with transportation and provides meals. Patient has an aide coming in twice a month to assist with cleaning. Patient is otherwise independent, but explained he and his PCP have been working on getting [facility], however, they are struggling to find an agency with available staffing. Patient?s HCPOA Keyonna coming in, LORENA to finish assessment with HCPOA present. LORENA met with patient and patient?s HCPOA and inquired about recent events and concerns. Patient?s HCPOA verified that she supports patient and does not have concerns regarding continuing to support the patient at home. Keyonna reports patient was deemed ineligible for [facility] services, and the patient and Keyonna do not want patient to go to a SNF. SW provided a list of HHC providers in network with patient?s insurance and encouraged them to continue to review and discuss options with PCP. Patient has appointment with [facility] today at 4pm. SW then assisted patient in completing safety plan and discussed reducing lethal means. Patient and Keyonna report patient does have access to weapons, however, he has no bullets/shells so they are not concerned with patient having them in patient?s home. Keyonna has patient?s medications and fills for the patient, no other safety concerns voiced. Keyonna and patient report being comfortable with patient d/c home and no further services are needed. SW provided a copy of safety plan as well as local MH agencies and crisis contact information. Patient and HCPOA receptive towards information. ?? LORENA consulted with MD Qiu who is in agreement with SW to safety plan with resources. SW updated care team of the plan. Plan: safety plan, HHC list provided as well as MH agencies and crisis contact information. Patient and HCPOA denying need for SNF at this time Shell Vargas MSW, MADHU
--- NOTE | 2023-02-09 12:12 | CM.ED ---
Social Work SW called patient to follow-up post safety plan. Pt's HCPOA, Keyonna, answered and reports patient is doing well. Keyonna denies any current needs for patient. Keyonna reports patient is feeling a little better today and denies any further concerns. SW provided support. Elis Hernandes PLY BANDER, LOCUM TENENS
== END 2023-02-06 11:10 | disposition home or self-care (01) ==
PROVIDERS: Emergency Provider Emergency Medicine; PCP Family Medicine; Visit Provider Emergency Medicine
DX: J96.11 Chronic respiratory failure with hypoxia (principal); I11.0 Hypertensive heart disease with heart failure; I50.9 Heart failure, unspecified; I48.0 Paroxysmal atrial fibrillation; R62.7 Adult failure to thrive; R45.851 Suicidal ideations; R53.1 Weakness; G47.30 Sleep apnea, unspecified; I44.7 Left bundle-branch block, unspecified; Z79.01 Long term (current) use of anticoagulants; Z79.899 Other long term (current) drug therapy; Z99.81 Dependence on supplemental oxygen; Z87.891 Personal history of nicotine dependence; N40.1 Benign prostatic hyperplasia with lower urinary tract symptoms; R39.14 Feeling of incomplete bladder emptying
CPT/HCPCS: 71045; 80048; 81001; 83735; 83880; 84145; 84443; 84484; 85025; 93005; 99284

== ENCOUNTER → 2023-02-17 | Outpatient (CLI) | payer MEDICARE, MEDICAID, SELFPAY ==
--- NOTE | 2023-02-17 15:32 | RAD_ITS ---
STUDY: X-RAY CHEST REASON FOR EXAM: Male, 82 years old. Follow-up of pneumonia. TECHNIQUE: Frontal and lateral views of the chest. COMPARISON: February 06, 2023. FINDINGS: Cardiomegaly with aortic tortuosity and calcification unchanged. Stable hyperinflation of the left lung with increased opacity at the right base. Stable right apical pleural thickening. Slight increase in right pleural effusion. 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 No abnormality of the visualized soft tissue structures of the upper abdomen. RAD/Chest PA and Lateral IMPRESSION: Increased opacity at the right base with slight increase in right pleural effusion. Findings compatible with worsening pneumonia. Follow-up chest imaging to resolution recommended. Electronically Signed: Skinny Byrnes MD at 15:49 EDT ,
== END | disposition home or self-care (01) ==
LOC: MTRAD 15:32
PROVIDERS: PCP Family Medicine; Referring Provider Family Medicine; Visit Provider Family Medicine
DX: J90 Pleural effusion, not elsewhere classified (principal)
CPT/HCPCS: 71046

== ENCOUNTER → 2023-02-27 | Outpatient (CLI) | payer MEDICARE, MEDICAID, SELFPAY ==
--- NOTE | 2023-02-27 | IMM_PTH ---
PATIENT: MIKEY KIMBALL LOC: [facility]#:[id number] AGE/SX: 82/M ROOM: RE02/27/[address]: MAHNAZ Cash : [id number] BED: DIS: 02/27/2023 SPEC #: [id number] RECD: 03/02/23 12:27 STATUS: MILAN REDonna #: [id number] COREY: 02/27/23 00:[address]: Rosa Barrett NP DEPT: IMMUNOHISTOCHEMISTRY RECD BY: Denisa Moon ENTERED: 03/02/23 12:30 SP TYPE: IMMUNO OTHR DR: Dr. Art Grey MD Tissues: THORACIC FLUID Procedures: RCC (add) NAPSIN A (add) Fred Ret (add) CK20 (add) CK5-6 (add) CK7 (add) CK8 (add) HEP PAR (add) TTF1 (add) Vimentin (add) Pankeratin (initial) P40 (add) PSAP (add) CD68 (ADD) PHYSICIAN & [address] [address] SPECIMEN INFORMATION: Tissue Source: Thoracentesis fluid Clinical Info: Right pleural effusion Specimen Number: [id number] CPT code: 72451, 54093 x13 METHODOLOGY: Deparaffinized sections of prefer/formalin-fixed tissue or PAP/DQ stained slides are incubated with monoclonal/polyclonal antibodies/oligonucleotide probes. Localization is made via biotin free immunoperoxidase method. Appropriate controls are performed and reacted as expected. Results on target cell population are indicated in the following table: RESULTS: ANTIBODY / CLONE RESULT AE1-3 (AE1/AE3/PCK26) positive CK7 (OV-TL12/30) positive CK8 (79tqlnK13) positive CK20 (KS20.8) negative Vimentin (V9) negative CD68 (KP-1) negative TTF-1 (8G7G3/1) positive Napsin A (Rabbit Polyclonal) positive HepPar (OCh1E5) negative RCC (PN-15) negative PSAP (PASE/4LJ) negative CALRET (polyclonal) negative CK5-6 (D5 & 1684) negative P40 (BC28) negative These tests were developed and their performance characteristics determined by [facility]. They may not have been cleared or approved by the U.S. Food and Drug Administration. The FDA has determined that such clearance or approval is not necessary. The above immunohistochemical/dualISH markers are ordered and reviewed by the Pathologist. INTERPRETATION: Thoracentesis fluid (cell block): Malignant cells present derived from non-small cell carcinoma, favor adenocarcinoma. See comment. YONY:brian 03/03/2023 Comment: IHC profile favors lung primary.
--- NOTE | 2023-02-27 07:00 | US_ITS ---
PROCEDURE: ULTRASOUND GUIDED THORACENTESIS. DATE: February 27, 2023. INDICATION: Male, 82 years old. Right pleural effusion. PHYSICIAN: Rafael Theodore M.D. PROCEDURE: The risks, benefits, and alternatives to the procedure were explained to the patient. The specific risks of bleeding, infection, and pneumothorax requiring chest tube insertion were discussed and accepted. Written informed consent was obtained. Ultrasonographic evaluation of the right lower pleural space was carried out. An adequate pocket was identified. The patient was placed in the sitting, upright position. The overlying skin was prepped and draped in sterile fashion. 1% lidocaine was administered subcutaneously for local anesthesia. Under ultrasound guidance, a 5 Fijian thoracentesis needle/catheter system was advanced into the right posterior lower pleural fluid collection. Approximately 1390 mL of red-tinged fluid was drained. The catheter was removed, and a sterile dressing was applied. A specimen was collected and sent to the laboratory for analysis, as requested by the referring clinician. The patient tolerated the procedure well. A chest x-ray was ordered. US/Thoracentesis W US IMPRESSION: Ultrasound-guided right thoracentesis. Electronically Signed: Rafael Theodore MD at 9:15 EDT ,
[2023-02-27 07:07] LABS: International Normalized Ratio 1.1; Prothrombin Time (Protime)PT. 13.7 SECONDS (11.7-14.9)
[2023-02-27 07:08] LABS: Partial Thromboplast Time 30.5 Seconds (24.1-36.2)
[2023-02-27 07:21] LABS: ALB/GLOB Ratio 0.8 RATIO (0.9-2.4); Globulin 4.2 g/dL (2.2-4.2); LDH 213 U/L (87-241); Protein, Total 7.4 g/dL (6.4-8.2)
[2023-02-27 07:56] VITALS: BP 117/73; BP 120/80; BP 126/72; BP 130/80; BP 136/58; PULSE 53; PULSE 74; PULSE 78; PULSE 88; RESP 16; RESP 18; TEMP 36.4; O2SAT 91; O2SAT 92; O2SAT 93
[2023-02-27] MEDS: Lidocaine 2% (20 ml mdv) 20 ML Vial INFILT (08:03)
--- NOTE | 2023-02-27 08:10 | FLU_PTH ---
PATIENT: MIKEY KIMBALL LOC: [facility]#:[id number] AGE/SX: 82/M ROOM: RE02/27/[address]: MAHNAZ Cash : 1940 BED: DIS: 02/27/2023 SPEC #: [id number] RECD: 02/27/23 08:21 STATUS: MILAN FRANCIS #: [id number] COREY: 02/27/23 08:[address]: Rosa Barrett NP DEPT: CYTOLOGY RECD BY: Rachna Bates ENTERED: 02/27/23 09:58 SP TYPE: Fluid OTHR DR: Dr. 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 See comment. SJ:brian 03/02/2023 COMMENT Immunohistochemistry ([id number]) supports the above diagnosis and favors lung primary. Correlation with clinical, radiologic findings and appropriate follow up are necessary. Case has been reviewed in consultation with Dr. Villar who concurs with the above diagnosis. IDC:AM CYTOLOGY STUDY Slides are reviewed. CYTOLOGY GROSS Received is 85 ml of red cloudy fluid labeled with the patient's name and and designated per the requisition as thoracentesis. Submitted for cytology preparation including cell block. / brian 02/27/2023 TC:0 CPT: 33636, 13955
--- NOTE | 2023-02-27 08:20 | RAD_ITS ---
STUDY: X-RAY CHEST REASON FOR EXAM: Male, 82 years old. POST THORA TECHNIQUE: AP inspiration and expiration views. COMPARISON: Comparison is made with prior study February 17, 2023. FINDINGS: The patient is status post right thoracentesis. No evidence of pneumothorax. Persistent right lower lobe infiltrate. RAD/Chest Insp/Exp 2 View IMPRESSION: Status post right thoracentesis. No evidence of pneumothorax. Persistent right lower lobe infiltrate. Electronically Signed: Rafael Theodore MD at 8:43 EDT ,
--- NOTE | 2023-02-27 09:00 | PCM.OP.PRO ---
Procedure Report Date of Procedure: 02/27/23 PROCEDURE: Ultrasound Guided Thoracentesis ORDERING PROVIDER: Rosa Barrett CNP INDICATION: Male, 82 years old. Right pleural effusion. PROVIDER: RAMYA Roca PROCEDURE: The risks, benefits, and alternatives to the procedure were explained to the patient. The specific risks of bleeding, infection, and pneumothorax requiring chest tube insertion were discussed and accepted. Written informed consent was obtained. Ultrasonographic evaluation of the bilateral lower pleural spaces was carried out. An adequate pocket was identified in the right pleural space. The patient was placed in the sitting, upright position. The overlying skin was prepped and draped in sterile fashion. 2% lidocaine was administered subcutaneously for local anesthesia. Under ultrasound guidance, a 5-Urdu thoracentesis needle/catheter system was advanced into the right posterior lower pleural fluid collection. 1390 ml of clear red colored fluid was drained. The catheter was removed, and a sterile dressing was applied. The patient tolerated the procedure well. A chest x-ray was ordered. IMPRESSION: Successful ultrasound-guided thoracentesis of right pleural effusion. Assessment & Plan Assessment/Plan (1) Pleural effusion: Procedures Radiology Radiology US Procedures: 30685 Thoracentesis
== END | disposition home or self-care (01) ==
PROVIDERS: PCP Family Medicine; Referring Provider Nurse Practitioner Acute Care; Visit Provider Nurse Practitioner Acute Care
DX: C34.90 Malignant neoplasm of unspecified part of unspecified bronchus or lung (principal); J96.11 Chronic respiratory failure with hypoxia; J90 Pleural effusion, not elsewhere classified
CPT/HCPCS: 32555; 36415; 71046; 83615; 84156; 85610; 85730; 88108; 88305; 88313; 88341; 88342

== ENCOUNTER → 2023-03-04 | Outpatient (CLI) | payer MEDICARE, MEDICAID, SELFPAY ==
--- NOTE | 2023-03-04 11:40 | RAD_ITS ---
STUDY: X-RAY CHEST REASON FOR EXAM: Male, 82 years old. Malignant effusion. Status post drainage. TECHNIQUE: Frontal and lateral views of the chest. COMPARISON: February 27, 2023. FINDINGS: Stable cardiomegaly with aortic tortuosity and calcification. Increased opacities in the right middle and lower lobes with larger right pleural effusion. Right apical pleural thickening unchanged. No abnormality of the visualized soft tissue structures of the upper abdomen. RAD/Chest PA and Lateral IMPRESSION: Radiographic worsening with increase in right pleural effusion and opacities in the right middle and lower lobes. No emergent or acute abnormality. Electronically Signed: Skinny Byrnes MD at 12:38 EDT ,
== END | disposition home or self-care (01) ==
PROVIDERS: PCP Family Medicine; Referring Provider Family Medicine; Visit Provider Family Medicine
DX: C34.90 Malignant neoplasm of unspecified part of unspecified bronchus or lung (principal)
CPT/HCPCS: 71046

== ENCOUNTER 2023-03-05 11:45 | Emergency (ER) | payer MEDICARE, MEDICAID, SELFPAY ==
[2023-03-05] VITALS (11 sets, daily range): BP systolic 112–164; BP diastolic 70–115; PULSE 38–99; RESP 16–24; TEMP 36.3; O2SAT 92–94; BMI 26.1
--- NOTE | 2023-03-05 12:06 | ED.VIS.DYS ---
HPI History of Present Illness Chief Complaint: Shortness of Breath [facility] Medical History (Reviewed 03/05/23 @ 11:11 by Rosa Barrett [employer]OTH BLEACHING RANGE TENDER, CLOTH BLEACHING RANGE TENDER-C) Alcohol abuse Anxiety and depression BPH (benign prostatic hyperplasia) Bronchiectasis Chronic respiratory failure with hypoxia Essential hypertension Former smoker Gastric reflux History of bladder cancer HTN (hypertension) HX: anticoagulation Incomplete bladder emptying Lung nodule Mixed obstructive and restrictive ventilatory defect PAF (paroxysmal atrial fibrillation) Personal history of atrial fibrillation Restless legs Shortness of breath on exertion Sleep apnea Visual impairment Wears dentures Wears glasses Home Medications amlodipine 10 mg tablet 10 mg PO DAILY blood pressure 08/07/21 [History Last Taken 03/04/23] multivitamin 1 tab PO DAILY supplement 08/07/21 [History Last Taken 03/04/23] finasteride 5 mg tablet 5 mg PO DAILY prostate 08/08/21 [History Last Taken 03/03/23] omeprazole 20 mg capsule,delayed release 20 mg PO DAILY acid reflux 10/25/21 [History Last Taken 03/03/23] apixaban 5 mg tablet (Eliquis) 5 mg PO DAILY blood thinner 12/07/22 [History Last Taken 03/03/23] fluticasone fur. 100 mcg-umeclid 62.5 mcg-vilant 25 mcg inhalat.powder (Trelegy Ellipta) 1 inh inhalation DAILY shortness of breath/wheezing 12/10/22 [History Last Taken 03/03/23] albuterol sulfate 90 mcg/actuation aerosol inhaler 2 puff inhalation Q4H PRN SOB #8.5 grams 02/02/23 [Rx Last Taken 03/04/23] furosemide 40 mg tablet (Lasix) 40 mg PO DAILY fluid 02/02/23 [History Last Taken 03/03/23] potassium chloride 20 mEq tablet,extended release 20 meq PO DAILY supplement 02/02/23 [History Last Taken 03/03/23] ipratropium bromide 42 mcg (0.06 %) nasal spray 2 spray intranasal DAILY 03/05/23 [History Last Taken 03/03/23] Allergy/AdvReac Type Severity Reaction Status Date / Time No Known Allergies Allergy Verified 03/05/23 11:46 Family History (Reviewed 03/05/23 @ 11:11 by Rosa Barrett [employer]OTH BLEACHING RANGE TENDER, CLOTH BLEACHING RANGE TENDER-C) Mother Cancer Hypertension EtOH dependence Father Hypertension EtOH dependence Surgical History (Reviewed 03/05/23 @ 11:11 by Rosa Barrett [employer]OTH BLEACHING RANGE TENDER, CLOTH BLEACHING RANGE TENDER-C) History of colonoscopy Hx of appendectomy Hx of tonsillectomy Social History (Reviewed 03/05/23 @ 11:12 by Rosa Barrett [employer]OTH BLEACHING RANGE TENDER, CLOTH BLEACHING RANGE TENDER-C) Smoking Status: Former smoker Tobacco: How many years used: 53 Electronic Cigarette Use: not used how long ago did patient quit smoking: quit in 2001 alcohol intake: current alcohol intake frequency: holidays/special occasions only details: Hx 4 EtOH shots q HS. substance use type: does not use caffeine: No EXAM Physical Exam Const Vital Signs: 03/05/23 11:46 03/05/23 11:57 03/05/23 12:00 Temperature 97.3 F L Temperature Source Temporal Pulse Rate 38 L 83 Respiratory Rate 18 20 H Respiratory Effort Short of Breath Respiratory Depth Normal Respiratory Pattern Normal Blood Pressure 126/72 H 135/98 H Blood Pressure Mean 90 110 Pulse Ox 93 93 Oxygen Delivery Method Nasal Cannula Nasal Cannula Nasal Cannula Oxygen Flow Rate (L/min) 3 3 3 03/05/23 12:44 03/05/23 14:38 Temperature Temperature Source Pulse Rate 91 Respiratory Rate 20 H Respiratory Effort Respiratory Depth Respiratory Pattern Blood Pressure 125/78 H Blood Pressure Mean 93 Pulse Ox 92 Oxygen Delivery Method Nasal Cannula Nasal Cannula Oxygen Flow Rate (L/min) 3 3 MDM MDM MDM Narrative Medical decision making narrative: HISTORY OF PRESENT ILLNESS: 82-year-old male here with shortness of breath. notes cough productive of green sputum. Notes chest tightness. REVIEW OF SYSTEMS: Pertinent positives: Shortness of breath Pertinent negatives: Chest pain, leg swelling PHYSICAL EXAM: Nursing triage notes reviewed, Vital signs reviewed Constitutional: please see mdm HENT: MMM Eyes: Pupils equal round and reactive to light, Extraocular muscles intact Neck: No stridor, no JVD, full neck ROM Lungs: Coarse breath sounds throughout, noted r diminished breath sounds on the right. No increased work of breathing, no conversational dyspnea, no accessory muscle use, no nasal flaring. No respiratory distress noted Heart: Regular rate and rhythm, No murmurs, No rubs and No gallops, 2+ distal pulses (radial, femoral, posterior tibial) in all extremities Abdomen: Soft, there is no tenderness, rigidity, rebound or guarding, no obvious peritoneal signs, no palpable pulsatile abdominal masses, no auscultated abdominal bruit : No CVAT Extremities: No edema Neuro: No focal neurological deficits, cranial nerves II through XII intact, 5/5 strength in all extremities. Intact sensation to light touch in all extremities, 2+ reflexes bilateral patella tendons. Normal gait. No ataxia. Skin: No rash or lesions noted MEDICAL DECISION MAKING: Chief Complaint: Shortness of breath External records reviewed: Recent thoracentesis for right-sided pleural effusion Factors affecting care: On Eliquis, hypertension Social determinants of health: Former smoker History obtained from others: The patient's Consults: Interventional radiology, General medicine MDM Narrative: The patient was hemodynamically stable, afebrile, nontoxic-appearing. Diminished breath sounds in right lung bases. I considered the following differential diagnosis: Pleural effusion, pneumonia, PE ALL IMAGES (IF OBTAINED) HAVE BEEN PERSONALLY REVIEWED AND INTERPRETED BY MYSELF. EKG with rate controlled A-fib, left axis deviation, left bundle branch block, no obvious STEMI. Similar to prior EKG on January 2020. BNP was within normal limits. CBC without leukocytosis, severe anemia or thrombocytopenia. BMP without evidence of significant electrolyte abnormalities, no anion gap, no acute kidney injury. I have personally reviewed the patient's chest x-ray. Chest x-ray is shows evidence of right-sided infiltrate versus pleural effusion. The synthesis of the patient's labs images consultations suggest right-sided pneumonia versus mass. X-ray looks similar to prior and so I consulted interventional radiology to assess if they could evaluate the patient for thoracentesis. IR performed ultrasound showed no appreciable fluid collection that would warrant or thoracentesis. They recommended against thoracentesis at this time. Patient felt uncomfortable going home given increased work of breathing and increased oxygen requirements in last 24 hours due to difficulty lying down or doing his ADLs. He was given IV antibiotics admitted to the floor for likely community-acquired pneumonia. Discussed with hospitalist Dr. Brewster who recommended obtaining a CT of the chest and consult with the patient's photo booth operator who he saw just prior to arrival. We will sign the patient out to the pain physician pending CTA and Dr. Brewster's final recommendations in terms of admission. The patient and/or family, caregivers express understanding. The patient and/or family, caregivers agrees with the plan. Shared decision making: I will have a discussion with the patient and or visitors regarding risk/benefits of further testing or admission. They will be made aware of of the risk/benefits inherent in this decision they will be given the opportunity to voice understanding. Total critical care time today provided was at least 0 minutes. This excludes separately billable procedures. Critical care time (if documented) is secondary to the patient having high probability of clinically significant/life threatening deterioration in the patient's condition which required my urgent intervention. Impression: 1. Community acquired pneumonia 2. History of lung cancer 3. Atrial fibrillation Dispo: Discharge Lab Data Labs: Laboratory Results - last 24 hr 03/05/23 12:25 WBC 6.9 RBC 4.36 L Hgb 13.4 Hct 41.2 MCV 94.5 H MCH 30.7 MCHC 32.5 RDW Std Deviation 46.2 H RDW Coeff of Glenn 13.4 Plt Count 168 MPV 9.3 Immature Gran % (Auto) 0.400 Neut % (Auto) 70.9 H Lymph % (Auto) 13.6 L [place] % (Auto) 12.0 H Eos % (Auto) 2.2 Baso % (Auto) 0.9 Absolute Neuts (auto) 4.9 Absolute Lymphs (auto) 0.94 Nucleated RBC % 0 Sodium 140 Potassium 4.0 Chloride 105 Carbon Dioxide 32.0 Anion Gap 3 L BUN 17 Creatinine 1.04 Est GFR (MDRD) Af Amer 87 Est GFR (MDRD) Non-Af 72 BUN/Creatinine Ratio 16.3 Glucose 142 H Calcium 8.8 Troponin I High Sens 18 B-Natriuretic Peptide 85.4 Radiography Diagnostic Testing: Clinical Impression(s) from Imaging Studies Chest X-Ray 03/05/23 12:40 IMPRESSION: Right basilar infiltration with small effusion. There has been essentially no change. New infiltrate at the left lung base. Scarring at the right lung apex. Electronically Signed: Rafael Theodore MD at 13:22 EDT , Chest Ultrasound 03/05/23 13:32 IMPRESSION: Small right pleural effusion with infiltration at the right lung base. Not enough fluid for safe thoracentesis. Electronically Signed: Rafael Theodore MD at 14:30 EDT , Discharge Plan Triage Chief Complaint: Shortness of Breath ED Provider: Markell Burt Dx/Rx/DC Orders Prescriptions: No Action amlodipine 10 mg tablet 10 mg PO DAILY multivitamin Tablet 1 tab PO DAILY finasteride 5 mg tablet 5 mg PO DAILY omeprazole 20 mg capsule,delayed release(DR/EC) 20 mg PO DAILY furosemide [Lasix] 40 mg tablet 40 mg PO DAILY potassium chloride 20 mEq tablet extended release 20 meq PO DAILY albuterol sulfate 90 mcg/actuation HFA aerosol inhaler 2 puff inhalation Q4H PRN (Reason: SOB) Qty: 8.5 3RF Trelegy Ellipta 100-62.5-25 mcg blister with device 1 inh inhalation DAILY Eliquis 5 mg tablet 5 mg PO DAILY ipratropium bromide 42 mcg (0.06 %) spray,non-aerosol 2 spray INTRANASAL DAILY Primary Care Provider: Art Grey Referrals: Art Grey MD [Primary Care Provider] -
--- NOTE | 2023-03-05 12:40 | RAD_ITS ---
STUDY: X-RAY CHEST REASON FOR EXAM: Male, 82 years old. Shortness of breath TECHNIQUE: Single AP portable view of the chest. COMPARISON: Comparison is made with prior study dated March 04, 2023. FINDINGS: EKG electrodes are seen. Stable small right pleural effusion with right basilar infiltrate. New focal infiltrate in the left lung base. Scarring at the right lung apex. There is no demonstrated pleural abnormality. Normal size heart. Normal mediastinum and prashant. Normal visualized pulmonary arteries. There is atherosclerotic calcification of the aortic arch with tortuosity. There are diffuse degenerative changes of the visualized thoracic spine. Normal visualized ribs, clavicles, and shoulders. There is no demonstrated abnormality of the visualized soft tissue structures of the upper abdomen. RAD/Chest 1 View (Portable) IMPRESSION: Right basilar infiltration with small effusion. There has been essentially no change. New infiltrate at the left lung base. Scarring at the right lung apex. Electronically Signed: Rafael Theodore MD at 13:22 EDT ,
[2023-03-05 12:42] LABS: Absolute Lymphocyte Count 0.94 X10^3/uL (0.83-4.51); Absolute Neutrophil Count 4.9 X10^3/uL (2.0-7.7); Basophil# 0.06 X10^3/uL; Basophil% 0.9 % (0-1); Eosinophil# 0.15 X10^3/uL; Eosinophils% 2.2 % (0-5); Hematocrit 41.2 % (40-54); Hemoglobin 13.4 g/dL (13.0-16.5); Lymphocyte # 0.94 X10^3/ul (0.83-4.51); Lymphocyte % 13.6 % (19-41); Mean Corp Hgb Conc 32.5 g/dL (32-36); Mean Corpuscular Hgb 30.7 pg (27.0-32.0); Mean Corpuscular Volume 94.5 fL (80-94); Mean Platelet Vol. 9.3 fl (6.2-12.0); Monocyte# 0.83 X10^3/uL; NRBC Flagged by Analyzer 0 % (0-5); Neutrophil % 70.9 % (47-70); Platelet Count 168 K/mm3 (150-450); RBC Distribution Width CV 13.4 % (11.6-14.6); RBC Distribution Width SD 46.2 fl (35.1-43.9); Red Blood Count 4.36 M/mm3 (4.6-6.2); White Blood Count 6.9 K/mm3 (4.4-11.0)
[2023-03-05 13:08] LABS: Anion Gap 3 (5-15); BUN 17 mg/dL (7-18); BUN/Creat Ratio 16.3 RATIO (10-20); Calcium,Total 8.8 mg/dL (8.5-10.1); Chloride 105 mmol/L (98-107); Creatinine, Serum 1.04 mg/dL (0.70-1.30); EST Glomerular Filtration Rate 72 mL/min (>60); Est Glom Filt Rate - Afr Amer 87 mL/min (>60); Glucose 142 mg/dL (74-106); Sodium Level 140 mmol/L (136-145); Troponin-I HS 18 pg/mL (3.0-78.0)
[2023-03-05 13:15] LABS: BNP,B-Type NATRIURETIC PEPTIDE 85.4 pg/mL (0-100)
--- NOTE | 2023-03-05 13:32 | US_ITS ---
STUDY: SUPERFICIAL ULTRASOUND - RIGHT PLEURAL EFFUSION. REASON FOR EXAM: Male, 82 years old. Right sided pleural effusion TECHNIQUE: A superficial ultrasound was performed with real-time and static perez-scale imaging. COMPARISON: None. FINDINGS: Imaging of the right pleural space was obtained. There is a small right pleural effusion with underlying pulmonary infiltrate. Not enough fluid for safe thoracentesis. US/Chest IMPRESSION: Small right pleural effusion with infiltration at the right lung base. Not enough fluid for safe thoracentesis. Electronically Signed: Rafael Theodore MD at 14:30 EDT ,
--- NOTE | 2023-03-05 15:47 | CT_ITS ---
STUDY: CTA CHEST REASON FOR EXAM: Male, 82 years old. SOB RADIATION DOSAGE (If Supplied By Facility): CTDIvol = ( 15.28 ) mGy, DLP = ( 503.80 ) mGycm TECHNIQUE: The examination was performed with the intravenous administration of IV 100mL [id number]. Post-processing of the angiographic images was performed, with multiplanar reformation and 3D reconstruction. Individualized dose optimization techniques were used for this CT. COMPARISON: None. Wall FINDINGS: Normal enhancement of the main pulmonary artery and right and left pulmonary arteries. Normal enhancement of the bilateral peripheral pulmonary arteries. There is no demonstrated pulmonary embolism. 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 The transverse diameter of the ascending aorta measures 43 mm''s. There is diffuse calcified plaque and tortuosity. There is no demonstrated aortic dissection. Normal heart and pericardium. There are calcifications of the coronary arteries. Normal mediastinum. Normal hilar regions. Normal visualized trachea and bronchi. The lungs are hyper expanded, with flattening of the hemidiaphragms. There is severe centrilobular emphysema and interstitial thickening. There is a moderate right pleural effusion that is worse than prior study. Extensive airspace densities are seen throughout the mid and lower right lung consistent with active infiltrate, worse than prior study. Stable irregular and spiculated 4.2 cm pulmonary opacity of the left apex for which neoplasm is not excluded. Stable 1.2 cm pleural-based nodule in the left lung base. There are degenerative changes of thoracic spine. Probable cholelithiasis seen in the visualized upper abdomen. CT/CTA Chest W/WO Contrast IMPRESSION: No demonstrated pulmonary embolism or arterial dissection. Extensive abnormalities of the right lung, probably worse than prior exam including worsening pleural effusion and airspace densities. Severe centrilobular emphysema. Stable nonspecific focal pulmonary opacity of the left apex. Electronically Signed: Bonilla Hogan MD at 16:43 EDT ,
[2023-03-05] MEDS: Ceftriaxone 1 GM/50 ML BAG IV (16:12)
[2023-03-05] MEDS: Azithromycin 500 MG in Dextrose 5%-Water (250mL Bag) 250 ML 250 MG IV (17:26)
--- NOTE | 2023-03-05 17:35 | HP.PCM.HOS_ITS ---
[facility] Date of Admission: 03/05/23 Date of Service: 03/05/23 Chief Complaint: Shortness of breath HPI Narrative MIKEY KIMBALL, is a 82 M who presented to the emergency department at [facility] on 03/05/2023. He was recently diagnosed with adenocarcinoma on the lung via thoracentesis which was performed on 02/27/2023. Pathology was positive and he was following up today with pulmonary medicine. At that visit they did refer him for PET scan and oncology follow-up however the patient was reporting worsening shortness of breath so was referred to the emergency department in anticipation of recurrent malignant effusion on the right side. Initially the emergency department, he was sent for thoracentesis in interventional radiology and no fluid pocket was able to be identified with ultrasound so he was sent back to the emergency department. They then treated him for a community-acquired pneumonia however the patient has no fever, chills, elevated white count or new cough. I asked him to obtain a CT of the chest which showed a loculated pleural effusion that is moderate in size on the right. I reviewed the imaging with pulmonary medicine and they recommended transfer to tertiary center for CT surgery evaluation for consideration of VATS versus pleurodesis. We do anticipate that this is going to be recurrent and oncology does not like Pleurx catheters to be placed. Patient is chronically O2 dependent and on 3 L at baseline. Patient denies any new cough or sputum production. He states these are chronic and at baseline. He stated he felt well after his thoracentesis and slowly developed worsening shortness of breath over the last several days. He had no fever or chills. Vital signs on presentation showed temperature of 97.3, heart rate 83, blood pressure 126/72, respiratory rate has been anywhere from 18-24 and oxygen saturations are 92 to 93% on 3 L nasal cannula. His CBC is unremarkable. His chemistry panel is unremarkable. Troponin was normal at 18. BNP is unremarkab le. Patient indicated he preferred to go to [facility] which is compatible with his insurance. We have called [facility] and they have accepted him however no bed availability tonight. They do anticipate bed to become available in the next 24 hours. [facility] Medical History Alcohol abuse Anxiety and depression BPH (benign prostatic hyperplasia) Bronchiectasis Chronic respiratory failure with hypoxia Essential hypertension Former smoker Gastric reflux History of bladder cancer HTN (hypertension) HX: anticoagulation Incomplete bladder emptying Lung nodule Mixed obstructive and restrictive ventilatory defect PAF (paroxysmal atrial fibrillation) Personal history of atrial fibrillation Restless legs Shortness of breath on exertion Sleep apnea Visual impairment Wears dentures Wears glasses Home Medications amlodipine 10 mg tablet 10 mg PO DAILY blood pressure 08/07/21 [History Last Taken 03/04/23] multivitamin 1 tab PO DAILY supplement 08/07/21 [History Last Taken 03/04/23] finasteride 5 mg tablet 5 mg PO DAILY prostate 08/08/21 [History Last Taken 03/03/23] omeprazole 20 mg capsule,delayed release 20 mg PO DAILY acid reflux 10/25/21 [History Last Taken 03/03/23] apixaban 5 mg tablet (Eliquis) 5 mg PO DAILY blood thinner 12/07/22 [History Last Taken 03/03/23] fluticasone fur. 100 mcg-umeclid 62.5 mcg-vilant 25 mcg inhalat.powder (Trelegy Ellipta) 1 inh inhalation DAILY shortness of breath/wheezing 12/10/22 [History Last Taken 03/03/23] albuterol sulfate 90 mcg/actuation aerosol inhaler 2 puff inhalation Q4H PRN SOB #8.5 grams 02/02/23 [Rx Last Taken 03/04/23] furosemide 40 mg tablet (Lasix) 40 mg PO DAILY fluid 02/02/23 [History Last Taken 03/03/23] potassium chloride 20 mEq tablet,extended release 20 meq PO DAILY supplement 02/02/23 [History Last Taken 03/03/23] ipratropium bromide 42 mcg (0.06 %) nasal spray 2 spray intranasal DAILY 03/05/23 [History Last Taken 03/03/23] Allergy/AdvReac Type Severity Reaction Status Date / Time No Known Allergies Allergy Verified 03/05/23 11:46 Family History Mother Cancer Hypertension EtOH dependence Father Hypertension EtOH dependence Surgical History History of colonoscopy History of thoracentesis Hx of appendectomy Hx of tonsillectomy Social History Smoking Status: Former smoker Tobacco: How many years used: 53 Electronic Cigarette Use: not used how long ago did patient quit smoking: quit in 2001 alcohol intake: current alcohol intake frequency: holidays/special occasions only details: Hx 4 EtOH shots q HS. substance use type: does not use caffeine: No ROS Constitutional Constitutional: Reports change in weight; Denies anorexia, chills, fatigue, fever(s), malaise, night sweats, weakness or other Eyes Eyes: Denies blurry vision, change in eye color, change in vision, discharge from eye(s), double vision, erythema, eye pain, loss of vision or other ENT HEENT: Denies abnormal hearing, dysphagia, ear pain, epistaxis, headache(s), hearing loss, nasal congestion, nasal discharge, post nasal drip, sinus pressure, sore throat or other Cardiovascular Cardiovascular: Reports dyspnea on exertion; Denies chest pain, claudication, edema, lightheadedness, orthopnea, palpitations, paroxysmal nocturnal dyspnea, rapid heart rate, syncope or other Respiratory/Chest Respiratory/Chest: Reports cough, productive cough, shortness of breath at rest and shortness of breath with exertion; Denies dyspnea, excessive phlegm production, hemoptysis, wheezing or other Gastrointestinal Gastrointestinal: Denies abdominal pain, coffee ground emesis, constipation, diarrhea, dyspepsia, hematemesis, hematochezia, loose stools, melena, nausea, vomiting or other Genitourinary Genitourinary: Denies burning urination, difficulty urinating, dysuria, hematuria, nocturia, urinary frequency, urinary hesitancy, urinary incontinence, urinary urgency or other Musculoskeletal Musculoskeletal: Denies arthralgias, back pain, joint pain, joint stiffness, joint swelling, myalgias, neck pain or other Neurologic Neurologic: Denies abnormal gait, abnormal speech, confusion, disequilibrium, dizziness, focal weakness, headache(s), numbness, paresthesias, seizure-like activity, seizures, syncope, tingling, tremor(s) or other Psychiatric Psychiatric: Denies anxiety, depression, homicidal ideation, suicidal ideation or other Endocrine Endocrinology: Denies change in body appearance, cold intolerance, excessive sweating, heat intolerance, polydipsia, polyuria or other Hematologic/Lymphatic Hematologic/Lymphatic: Denies anemia, easy bleeding, easy bruising, lymphadenopathy or other Allergic/Immunologic Allergic/Immunologic: Denies rhinitis, hives, eczemia, asthma or other Vital Signs Vital Signs Vital Signs: 03/05/23 11:46 03/05/23 11:57 03/05/23 12:00 Temperature 97.3 F L Temperature Source Temporal Pulse Rate 38 L 83 Respiratory Rate 18 20 H Respiratory Effort Short of Breath Respiratory Depth Normal Respiratory Pattern Normal Blood Pressure 126/72 H 135/98 H Blood Pressure Mean 90 110 Pulse Ox 93 93 Oxygen Delivery Method Nasal Cannula Nasal Cannula Nasal Cannula Oxygen Flow Rate (L/min) 3 3 3 03/05/23 12:44 03/05/23 14:38 03/05/23 16:17 Temperature Temperature Source Pulse Rate 91 89 Respiratory Rate 20 H 22 H Respiratory Effort Respiratory Depth Respiratory Pattern Blood Pressure 125/78 H 140/115 H Blood Pressure Mean 93 123 Pulse Ox 92 92 Oxygen Delivery Method Nasal Cannula Nasal Cannula Nasal Cannula Oxygen Flow Rate (L/min) 3 3 3 03/05/23 16:17 03/05/23 17:00 Temperature Temperature Source Pulse Rate 88 99 Respiratory Rate 24 H 23 H Respiratory Effort Respiratory Depth Respiratory Pattern Blood Pressure 149/91 H 149/89 H Blood Pressure Mean 110 109 Pulse Ox 92 92 Oxygen Delivery Method Nasal Cannula Oxygen Flow Rate (L/min) 3 Weight Weight: 80.3 kg Body Mass Index (BMI) 26.1 Physical Exam Const alert, oriented x3 and no apparent distress Constitutional Narrative: Elderly, white male, sitting up in bed, appears older than stated age, some dyspnea with conversation and mild tachypnea at rest with no overt respiratory distress, appears comfortable currently General Appearance: cooperative HEENT normocephalic, head/scalp atraumatic and moist oral mucous membranes HEENT Narrative: Dentition is poor, Mallampati is 2, no thrush, moderate hearing loss Eyes PERRL, EOMs intact bilaterally and conjunctivae normal Eyes Narrative: No scleral icterus Neck no lymphadenopathy and supple Neck Narrative: Acute midline, no thyroid enlargement Resp No normal respiratory effort, no retractions, no use of accessory muscles and clear to auscultation bilaterally Resp Narrative: Markedly diminished breath sounds diffusely with significant reduction at the right base, mild tachypnea and conversational dyspnea Auscultation: Negative for rales, rhonchi or wheezes Cardio S1 normal heart sound, S2 normal heart sound, no murmurs, no rub, no gallops and no clicks Cardio Narrative: Irregular irregular rhythm with mild tachycardia GI normal to inspection, nondistended, normoactive bowel sounds, soft to palpation and non-tender Extremity no clubbing, cyanosis or edema Extremity Narrative: Pedal pulses are 2+, decreased lean muscle mass Skin no rashes or lesions noted, no wounds, skin turgor normal, no jaundice, no petechiae and no mottling Neuro oriented x3, CN's II-XII intact bilaterally, moves all extremities and no focal motor deficits Neuro Narrative: Generalized weakness as noted-proximal greater than distal Speech: speech normal Psych affect normal Psych Narrative: Eye contact is good, patient interacts appropriately Results Lab / Micro Data 03/05/23 12:25 03/05/23 12:25 Labs: Laboratory Results - last 24 hr 03/05/23 12:25: WBC 6.9, RBC 4.36 L, Hgb 13.4, Hct 41.2, MCV 94.5 H, MCH 30.7, MCHC 32.5, RDW Std Deviation 46.2 H, RDW Coeff of Glenn 13.4, Plt Count 168, MPV 9.3, Immature Gran % (Auto) 0.400, Neut % (Auto) 70.9 H, Lymph % (Auto) 13.6 L, Dane % (Auto) 12.0 H, Eos % (Auto) 2.2, Baso % (Auto) 0.9, Absolute Neuts (auto) 4.9, Absolute Lymphs (auto) 0.94, Nucleated RBC % 0, Sodium 140, Potassium 4.0, Chloride 105, Carbon Dioxide 32.0, Anion Gap 3 L, BUN 17, Creatinine 1.04, Est GFR (MDRD) Af Amer 87, Est GFR (MDRD) Non-Af 72, BUN/Creatinine Ratio 16.3, Glucose 142 H, Calcium 8.8, Troponin I High Sens 18, B-Natriuretic Peptide 85.4 Micro: Microbiology 03/05/23 12:50 Nasal Secretion SARS-CoV-2 Antigen (Rapid) - Final Radiology Impression Chest X-Ray 03/05/23 12:40 IMPRESSION: Right basilar infiltration with small effusion. There has been essentially no change. New infiltrate at the left lung base. Scarring at the right lung apex. Electronically Signed: Rafael Theodore MD at 13:22 EDT , Chest Ultrasound 03/05/23 13:32 IMPRESSION: Small right pleural effusion with infiltration at the right lung base. Not enough fluid for safe thoracentesis. Electronically Signed: Rafael Theodore MD at 14:30 EDT , Chest CTA 03/05/23 15:47 IMPRESSION: No demonstrated pulmonary embolism or arterial dissection. Extensive abnormalities of the right lung, probably worse than prior exam including worsening pleural effusion and airspace densities. Severe centrilobular emphysema. Stable nonspecific focal pulmonary opacity of the left apex. Electronically Signed: Bonilla Hogan MD at 16:43 EDT , Assessment & Plan Assessment/Plan (1) Adenocarcinoma of lower lobe of right lung: (2) Loculated pleural effusion: (3) Malignant pleural effusion: (4) Chronic respiratory failure with hypoxia: (5) Shortness of breath: PLAN: Plan Loculated malignant pleural effusion right lower lobe -Patient with recent thoracentesis done on 02/27/2023 at which time almost 1400 cc were removed -Pathology is positive for malignant cells favoring adenocarcinoma -Followed up with pulmonary medicine today and oncology referral as well as PET scan have been ordered however the patient was having worsening shortness of breath and referred to the emergency department -Was sent to ultrasound for thoracentesis and no significant pocket of fluid was able to be identified -CT of the chest with contrast shows no PE but shows a moderate size pleural effusion that is loculated -Discussed case with pulmonary medicine they recommended transfer to tertiary center for CT surgery evaluation -Dr. Monroy did indicate that he discussed the case with the patient's PCP who recommended hospice however the patient is adamant that he wants to pursue aggressive care at this time -We will continue supplemental oxygen as needed -Bronchodilator therapy -Hold Eliquis for now Shortness of breath -Likely related to reaccumulating pleural effusion that now appears to be loculated -Clinically patient does not have any signs or symptoms of pneumonia -No infiltrate noted on CT, no fever, no sputum production, no leukocytosis -Continue supplemental oxygen -Pulmonary toilet Adenocarcinoma of the lung -Currently undergoing staging process and oncology evaluation -Patient adamant that he would like to pursue aggressive treatment -Follows with Dr. Monroy from a pulmonary standpoint -Has been referred for PET scan and oncology follow-up Chronic hypoxic respiratory failure secondary to COPD -Patient is on 3 L at baseline -Currently on 3 L at rest with oxygen saturations at 92% -Keep sats greater than 88% -Continue pulmonary toilet -Continue senna spirometry PAF -Patient currently in sinus rhythm -Takes no rate controlling medication -We will hold Eliquis in anticipation of upcoming procedure required GERD -Continue home omeprazole Hypertension -Continue home Lasix -Continue home amlodipine History of tobacco abuse -Remote -Quit in 2001 -Encouraged ongoing cessation Alcohol abuse -Patient now only drinks socially but has previous history of nightly shots x4 DVT prophylaxis -Lovenox subcu 40 daily CODE STATUS -Full code Charges/Coding Visit Charges Inpatient E&M: 65634 Init Hosp L2
[2023-03-06 01:39] VITALS: BP 157/86; PULSE 64; RESP 18; TEMP 36.4; O2SAT 94
[2023-03-06 01:51] VITALS: RESP 18; O2SAT 94
== END 2023-03-06 03:08 | disposition short-term general hospital (02) ==
LOC: ED 17:39 → MS3 17:55
PROVIDERS: Emergency Medicine; Emergency Provider Internal Medicine; PCP Family Medicine; Visit Provider Internal Medicine
DX: J18.9 Pneumonia, unspecified organism (principal); C34.31 Malignant neoplasm of lower lobe, right bronchus or lung; J96.11 Chronic respiratory failure with hypoxia; I48.0 Paroxysmal atrial fibrillation; J91.0 Malignant pleural effusion; I10 Essential (primary) hypertension; Z99.81 Dependence on supplemental oxygen; Z87.891 Personal history of nicotine dependence; G47.30 Sleep apnea, unspecified; F10.10 Alcohol abuse, uncomplicated; K21.9 Gastro-esophageal reflux disease without esophagitis; Z79.899 Other long term (current) drug therapy; Z79.51 Long term (current) use of inhaled steroids; Z79.01 Long term (current) use of anticoagulants; R06.02 Shortness of breath
CPT/HCPCS: 71045; 71275; 76604; 80048; 83880; 84484; 85025; 87811; 93005; 96365; 96366; 96367; 99285; Q9967

== ENCOUNTER 2023-03-10 21:31 | Inpatient (IN) | payer MEDICARE, MEDICAID, SELFPAY ==
[2023-03-10] VITALS (7 sets, daily range): BP systolic 117–158; BP diastolic 73–86; PULSE 98–132; RESP 20–34; TEMP 36.5; O2SAT 92–96; BMI 26.4
--- NOTE | 2023-03-10 22:09 | EKG12_ITS ---
Test Reason : DYSRHYTHMIA Blood Pressure : / mmHG Vent. Rate : 134 BPM Atrial Rate : 000 BPM P-R Int : 000 ms QRS Dur : 120 ms QT Int : 290 ms P-R-T Axes : 000 027 062 degrees QTc Int : 433 ms Atrial fibrillation with rapid ventricular response Possible Lateral infarct , age undetermined Abnormal ECG Confirmed by SAMUEL DELONG, GELA ([id number]), art editor JOSHUA RODGERS ([id number]) on 03/11/2023 1:58:38 PM Referred By: ISRAEL Confirmed By:GELA BAKER MD
--- NOTE | 2023-03-10 22:10 | ED.VIS.DYS ---
HPI History of Present Illness Chief Complaint: Shortness of Breath Detail of Chief Complaint: Shortness of breath the last 7 hours. Informant: patient Onset/Context/Timing Onset: Today Context: gradual Timing: Continuous Quality: Positive for Orthopnea Current Severity: Moderate Maximum Severity: Moderate Worsened by: Exertion and Lying flat Associated Symptoms Negative for cough, rhinorrhea, fever, sore throat, white sputum, yellow sputum or green sputum Chest Pain: Positive for None Narrative Narrative: 82-year-old male history of hypertension, A-fib on Eliquis, pleural effusions with reported lung cancer. Was just hospitalized and discharged within the last several days. He has a pleural catheter that drains his pleural effusion. States in the last 7 hours he became short of breath. He is typically on 2 to 3 L of oxygen at home. He denies any chest pain or fever. States he is worse of pain. PE Risk Factors: Positive for Cancer and Recent immobilization; Negative for OCP + Smoking + > 35, Prior DVT or PE or Recent travel Prior similar symptoms: Yes Recent Illness/Hospitalization: Yes PFSH PFS Medical History Alcohol abuse Anxiety and depression BPH (benign prostatic hyperplasia) Bronchiectasis Chronic respiratory failure with hypoxia Essential hypertension Former smoker Gastric reflux History of bladder cancer HTN (hypertension) HX: anticoagulation Incomplete bladder emptying Lung nodule Mixed obstructive and restrictive ventilatory defect PAF (paroxysmal atrial fibrillation) Personal history of atrial fibrillation Restless legs Shortness of breath on exertion Sleep apnea Visual impairment Wears dentures Wears glasses Home Medications amlodipine 10 mg tablet 10 mg PO DAILY blood pressure 08/07/21 [History Last Taken 03/04/23] multivitamin 1 tab PO DAILY supplement 08/07/21 [History Last Taken 03/04/23] finasteride 5 mg tablet 5 mg PO DAILY prostate 08/08/21 [History Last Taken 03/03/23] omeprazole 20 mg capsule,delayed release 20 mg PO DAILY acid reflux 10/25/21 [History Last Taken 03/03/23] apixaban 5 mg tablet (Eliquis) 5 mg PO DAILY blood thinner 12/07/22 [History Last Taken 03/03/23] fluticasone fur. 100 mcg-umeclid 62.5 mcg-vilant 25 mcg inhalat.powder (Trelegy Ellipta) 1 inh inhalation DAILY shortness of breath/wheezing 12/10/22 [History Last Taken 03/03/23] albuterol sulfate 90 mcg/actuation aerosol inhaler 2 puff inhalation Q4H PRN SOB #8.5 grams 02/02/23 [Rx Last Taken 03/04/23] furosemide 40 mg tablet (Lasix) 40 mg PO DAILY fluid 02/02/23 [History Last Taken 03/03/23] potassium chloride 20 mEq tablet,extended release 20 meq PO DAILY supplement 02/02/23 [History Last Taken 03/03/23] ipratropium bromide 42 mcg (0.06 %) nasal spray 2 spray intranasal DAILY 03/05/23 [History Last Taken 03/03/23] metoprolol tartrate 50 mg tablet 50 mg PO DAILY 03/10/23 [History Last Taken Unknown] Allergy/AdvReac Type Severity Reaction Status Date / Time No Known Allergies Allergy Verified 03/10/23 21:31 Family History Mother Cancer Hypertension EtOH dependence Father Hypertension EtOH dependence Surgical History History of colonoscopy History of thoracentesis Hx of appendectomy Hx of tonsillectomy Social History Smoking Status: Former smoker Tobacco: How many years used: 53 Electronic Cigarette Use: not used how long ago did patient quit smoking: quit in 2001 alcohol intake: current alcohol intake frequency: holidays/special occasions only details: Hx 4 EtOH shots q HS. substance use type: does not use caffeine: No ROS ROS ED ROS Narrative Shortness of breath. Orthopnea. Review of Systems ROS Unobtainable: Denies due to encephalopathy Constitutional Constitutional ED: Denies chills or fever(s) Eyes Eyes: Denies blurry vision ENT ENT ED: Denies ear pain Cardiovascular Cardiovascular: Reports orthopnea, palpitations and racing heartbeat; Denies chest pain Respiratory/Chest Respiratory/Chest: Reports dyspnea, dyspnea on exertion and orthopnea; Denies cough Gastrointestinal Gastrointestinal: Denies abdominal pain, diarrhea, nausea or vomiting Genitourinary Genitourinary ED: Denies dysuria Musculoskeletal Musculoskeletal: Denies arthralgias Integumentary Denies abscess or Abrasions Neurologic Neurologic: Denies headache(s) Psychiatric Psychiatric: Denies anxiety Endocrine Endocrinology: Denies cold intolerance Hematologic/Lymphatic Hematologic/Lymphatic: Denies easy bleeding Allergic/Immunologic Allergic/Immunologic ED: Denies mouth swelling or tongue swelling EXAM Physical Exam Narrative Exam Narrative: 82-year-old male vital signs are stable except he is in A-fib with RVR heart rate in the 132 range. HEENT exam unremarkable. Neck nontender no JVD. Lungs diminished in the bases. Heart A-fib rate in the 130 range. Chest were nontender. Abdomen soft nontender. Nondistended. Moving all 4 extremities. 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 Calves are nontender without edema. Neurologically is awake and alert. Answering questions and following commands. Const Vital Signs: 03/10/23 21:31 03/10/23 21:34 03/10/23 21:36 Temperature 97.7 F L Temperature Source Temporal Pulse Rate 132 H Respiratory Rate 20 H Respiratory Effort Short of Breath Respiratory Pattern Tachypnea Blood Pressure 127/83 H Blood Pressure Mean 97 Pulse Ox 93 Oxygen Delivery Method Nasal Cannula Oxygen Flow Rate (L/min) 4 03/10/23 21:58 Temperature Temperature Source Pulse Rate 116 H Respiratory Rate 34 H Respiratory Effort Respiratory Pattern Blood Pressure 117/86 H Blood Pressure Mean 96 Pulse Ox 92 Oxygen Delivery Method Nasal Cannula Oxygen Flow Rate (L/min) 4 Positive well nourished and well developed; Negative for obese, cachectic or unkempt General Appearance ED: well developed; Negative for unkempt, cachectic, NAD or pallor Nutritional Appearance: Negative for cachectic or obese HEENT Reports moist mucous membranes atraumatic; Negative for trauma or tenderness Eyes PERRL and EOMs intact bilaterally General Eye ED: Negative for pale conjunctiva or scleral icterus Neck no lymphadenopathy, supple, no meningeal signs and no JVD General: Negative for tenderness Lymph Lymphatic: Negative for other Chest Wall Chest: Negative for other Resp No normal respiratory effort and No clear to auscultation bilaterally Resp Narrative: Increased respiratory rate. Diminished breath sounds. Auscultation: diminished lung sounds; Negative for rales or rhonchi Cardio S1 normal heart sound and S2 normal heart sound; Negative for regular rate or regular rhythm Cardio Narrative: A-fib with a rate about 132. Rate: tachycardic GI non-tender, non-distended and no masses Auscultation: normoactive bowel sounds Palpation: soft; Negative for tender or guarding Back/Spine no CVA tenderness and normal to inspection General Back: Negative for CVA tenderness Extremity normal to inspection General Extremety ED: Negative for edema or tenderness General Extremity: Negative for edema Neuro oriented x3 and CN's II-XII intact bilaterally Sensorium / Orientation: alert, oriented to person, oriented to place and oriented to time; Negative for orientation impaired, confused, lethargic or stuporous Speech: speech normal Motor Exam: strength 5/5 throughout Psych mental status grossly normal Appearance: Negative for unkempt Attitude: No agitated Mood & Affect: Negative for depressed Thought Process: normal thought process Skin no wounds General Skin Exam: Negative for jaundice or pallor Lesions: no lesions Rashes: no rashes Trauma: Negative for abrasion or laceration MDM MDM MDM Narrative Medical decision making narrative: 82-year-old male with pleural effusions complaint shortness of breath also history of A-fib currently in A-fib RVR. He is reportedly on the blood thinner Eliquis. This may be secondary pleural effusions could be secondary to his A-fib RVR combination of both versus other etiologies. Patient undergo cardiac work-up. To be treated with Cardizem. Repeat exam at 10:49 PM patient's had no improvement. He was given Cardizem his heart rate is still in the 116 range. To be started on a Cardizem drip. His shortness of breath may be caused by the A-fib RVR versus a pleural effusion but that looks stable and does not look that large on the chest x-ray. It could be a COPD exacerbation but currently he is really not wheezing. He could also have underlying pneumonia but has been seen before on both chest x-rays and CAT scans of his chest. Patient also tells me has been on recent antibiotics. He will be treated also with DuoNeb and albuterol aerosols with Solu-Medrol. I have the hospitalist on page for admission. History & Record Review Discussion w/independent historian: Patient Additional record(s) reviewed:: Prior inpatient record, Prior outpatient record, Prior ED visit and Prior labs Lab Data Attestation: I reviewed the patient's lab results. Lab results narrative: CBC shows a white count 8. H&H 13.2 and 41. Platelets 166. Electrolytes show a gap of 4 normal BUN of 13 and creatinine 0.7. Glucose 128. Troponin is normal at 17 and BNP is 126. Labs: Laboratory Results - last 24 hr 03/10/23 21:45 WBC 8.0 RBC 4.30 L Hgb 13.2 Hct 41.0 MCV 95.3 H MCH 30.7 MCHC 32.2 RDW Std Deviation 46.6 H RDW Coeff of Glenn 13.2 Plt Count 166 MPV 9.5 Immature Gran % (Auto) 0.400 Neut % (Auto) 71.2 H Lymph % (Auto) 15.3 L Rutherford % (Auto) 8.9 Eos % (Auto) 3.7 Baso % (Auto) 0.5 Absolute Neuts (auto) 5.7 Absolute Lymphs (auto) 1.23 Nucleated RBC % 0 Sodium 143 Potassium 3.7 Chloride 109 H Carbon Dioxide 30.0 Anion Gap 4 L BUN 13 Creatinine 0.78 Estim Creat Clear Calc 54.99 Est GFR (MDRD) Af Amer 122 Est GFR (MDRD) Non-Af 101 BUN/Creatinine Ratio 16.6 Glucose 128 H Calcium 8.6 Troponin I High Sens 17 B-Natriuretic Peptide 126.1 H Radiography Chest X-Ray - ED: Read by ED Physician, Mediastinum, Bony Structures, Chronic Changes, Right Effusion and - (Possible bilateral lower lobe infiltrates versus chronic changes. Seen on prior x-rays.) Diagnostic Testing: Clinical Impression(s) from Imaging Studies Chest X-Ray 03/10/23 22:15 IMPRESSION: Right chest tube terminates over the right lung apex at the medial aspect. Small right pleural effusion is stable to mildly decreased in size. Opacities in the right mid and lower lung concerning for infection are stable to mildly increased. Similar mild opacities in the left lower lung are grossly stable. Electronically Signed: Antonio Aranda MD at 22:39 EDT , Chest x-ray, portable, single view interpreted both by myself and the radiologist shows a right-sided chest tube in the apex. A right pleural effusion. COPD changes. Densities in both the right lower and left lower lung which could be fluid but could also be infiltrate. This was seen on prior chest x-ray within the last 5 days. Also seen on his recent CTA. Rhythm Strip Rhythm Strip: A-fib Rate: 134 Ectopy: None EKG Initial EKG: Attestation: I personally reviewed and interpreted this EKG as follows: Interpretation: Atrial Fibrillation Comments: A-fib rate 134 with rapid ventricular rate. Discharge Plan Triage Chief Complaint: Shortness of Breath ED Provider: Freddy Diehl Dx/Rx/DC Orders Clinical Impression: Chronic respiratory failure with hypoxia, Shortness of breath, Adenocarcinoma of left lung, Pleural effusion, COPD (chronic obstructive pulmonary disease), Atrial fibrillation with rapid ventricular response Prescriptions: No Action amlodipine 10 mg tablet 10 mg PO DAILY multivitamin Tablet 1 tab PO DAILY finasteride 5 mg tablet 5 mg PO DAILY omeprazole 20 mg capsule,delayed release(DR/EC) 20 mg PO DAILY furosemide [Lasix] 40 mg tablet 40 mg PO DAILY potassium chloride 20 mEq tablet extended release 20 meq PO DAILY albuterol sulfate 90 mcg/actuation HFA aerosol inhaler 2 puff inhalation Q4H PRN (Reason: SOB) Qty: 8.5 3RF Trelegy Ellipta 100-62.5-25 mcg blister with device 1 inh inhalation DAILY Eliquis 5 mg tablet 5 mg PO DAILY metoprolol tartrate 50 mg tablet 50 mg PO DAILY ipratropium bromide 42 mcg (0.06 %) spray,non-aerosol 2 spray INTRANASAL DAILY Primary Care Provider: Art Grey Referrals: Art Grey MD [Primary Care Provider] - Disposition Disposition: Acute Care Hospital [facility]
[2023-03-10] MEDS: dilTIAZem 25 MG/5 ML Vial 20 MG IV BOLUS (22:14)
--- NOTE | 2023-03-10 22:15 | RAD_ITS ---
INDICATION: chest pain EXAMINATION: Frontal view of the chest COMPARISON: Chest x-ray March 05, 2023. FINDINGS: Frontal view of the chest was obtained. The right chest tube terminates over the medial aspect of the right lung apex. The cardiac silhouette is not enlarged. Scarring in the lung apices bilaterally, greater on the right, grossly stable. A small right pleural effusion is stable to mildly decreased in size. Opacities in the right mid and lower lung are stable to mildly increased. Mild opacities in the left lower lung are grossly stable. Emphysematous changes are redemonstrated. No pneumothorax identified. RAD/Chest 1 View (Portable) IMPRESSION: Right chest tube terminates over the right lung apex at the medial aspect. Small right pleural effusion is stable to mildly decreased in size. Opacities in the right mid and lower lung concerning for infection are stable to mildly increased. Similar mild opacities in the left lower lung are grossly stable. Electronically Signed: Antonio Aranda MD at 22:39 EDT ,
[2023-03-10 22:17] LABS: Absolute Lymphocyte Count 1.23 X10^3/uL (0.83-4.51); Absolute Neutrophil Count 5.7 X10^3/uL (2.0-7.7); Basophil# 0.04 X10^3/uL; Basophil% 0.5 % (0-1); Eosinophils% 3.7 % (0-5); Hemoglobin 13.2 g/dL (13.0-16.5); Lymphocyte # 1.23 X10^3/ul (0.83-4.51); Lymphocyte % 15.3 % (19-41); Mean Corp Hgb Conc 32.2 g/dL (32-36); Mean Corpuscular Hgb 30.7 pg (27.0-32.0); Mean Corpuscular Volume 95.3 fL (80-94); Mean Platelet Vol. 9.5 fl (6.2-12.0); Monocyte# 0.71 X10^3/uL; Monocyte% 8.9 % (0-10); NRBC Flagged by Analyzer 0 % (0-5); Neutrophil # 5.71 X10^3/uL (2.7-7.7); Neutrophil % 71.2 % (47-70); Platelet Count 166 K/mm3 (150-450); RBC Distribution Width CV 13.2 % (11.6-14.6); RBC Distribution Width SD 46.6 fl (35.1-43.9)
[2023-03-10 22:37] LABS: Anion Gap 4 (5-15); BUN 13 mg/dL (7-18); BUN/Creat Ratio 16.6 RATIO (10-20); Calcium,Total 8.6 mg/dL (8.5-10.1); Chloride 109 mmol/L (98-107); Creatinine, Serum 0.78 mg/dL (0.70-1.30); EST Glomerular Filtration Rate 101 mL/min (>60); Est Glom Filt Rate - Afr Amer 122 mL/min (>60); Estimated Creatinine Clearance 54.99 ml/min; Glucose 128 mg/dL (74-106); Potassium 3.7 mmol/L (3.5-5.1); Sodium Level 143 mmol/L (136-145); Troponin-I HS 17 pg/mL (3.0-78.0)
[2023-03-10 22:39] LABS: BNP,B-Type NATRIURETIC PEPTIDE 126.1 pg/mL (0-100)
[2023-03-10] MEDS: Albuterol 2.5 MG/3 ML VIAL.NEB. INHALATION (23:02)
[2023-03-10] MEDS: Ipratropium/Albuterol Sulfate 3 ML AMPUL.NEB INHALATION (23:02)
--- NOTE | 2023-03-10 23:03 | HP.PCM.HOS_ITS ---
HPI - General General Date of Admission: 03/10/23 Date of Service: 03/10/23 Chief Complaint: Dyspnea. HPI Narrative The patient is an 82 y/o M w/ PMHx: History EtOH abuse now reports socially only, Anxiety and Depression, BPH, Chronic Hypoxic Respiratory Failure (3L NC) with Mixed Obstructive and Restrictive Ventilatory Defect/Bronchiectasis, PAF, RLS, HTN, HLD, GERd, Former tobacco use, recent ED evaluation on 03/05/23 with recent diagnosis of adenocarcinoma of the lung via thoracentesis performed 02/27/2023 with pathology positive with worsening dyspnea with CT of the chest upon ED evaluation with a loculated pleural effusion moderate in size on the right with reviewed per pulmonary medicine with recommendation for transfer to tertiary facility for CT surgery evaluation for consideration of VATS versus pleurodesis with eventual placement of pleural catheter and discharged to home who now re-presents to the [facility] ED on 03/10/23 with increasing dyspnea over the last 7 hours gradually worsening with associated orthopnea, worse with exertion and when he attempts to lay flat with no productive cough nor any upper respiratory type symptoms or fever or chills with no associated chest discomfort prompting eventual ED evaluation. He does report intermittent wheezing. Work-up in the ED included T97.7, heart rate initially 132 with most recent repeat 116, BP 127/83, respiratory rate 20, 93% on 4 L nasal cannula, EKG in the ED with atrial fibrillation with RVR with rate 134, chest x-ray with a right chest tube terminating over the right lung apex at the medial aspect, small right pleural effusion stable to mildly decreased in size, opacities in the right mid and lower lung concerning for infection are stable to mildly increased, similar mild opacities in the left lower lung grossly stable, CBC with WC 8.0, hemoglobin 13. 2, platelet 166 without marked shift, BMP with chloride 109, glucose 128, BNP 126.1, troponin 17. In the ED patient administered Solu-Medrol 125 mg IV x1, albuterol and DuoNeb therapy, diltiazem 20 mg IV bolus and eventually transition to a drip. [facility] Medical History Alcohol abuse Anxiety and depression BPH (benign prostatic hyperplasia) Bronchiectasis Chronic respiratory failure with hypoxia Essential hypertension Former smoker Gastric reflux History of bladder cancer HTN (hypertension) HX: anticoagulation Incomplete bladder emptying Lung nodule Mixed obstructive and restrictive ventilatory defect PAF (paroxysmal atrial fibrillation) Personal history of atrial fibrillation Restless legs Shortness of breath on exertion Sleep apnea Visual impairment Wears dentures Wears glasses Home Medications amlodipine 10 mg tablet 10 mg PO DAILY blood pressure 08/07/21 [History Last Taken 03/04/23] multivitamin 1 tab PO DAILY supplement 08/07/21 [History Last Taken 03/04/23] finasteride 5 mg tablet 5 mg PO DAILY prostate 08/08/21 [History Last Taken 03/03/23] omeprazole 20 mg capsule,delayed release 20 mg PO DAILY acid reflux 10/25/21 [History Last Taken 03/03/23] apixaban 5 mg tablet (Eliquis) 5 mg PO DAILY blood thinner 12/07/22 [History Last Taken 03/03/23] fluticasone fur. 100 mcg-umeclid 62.5 mcg-vilant 25 mcg inhalat.powder (Trelegy Ellipta) 1 inh inhalation DAILY shortness of breath/wheezing 12/10/22 [History Last Taken 03/03/23] albuterol sulfate 90 mcg/actuation aerosol inhaler 2 puff inhalation Q4H PRN SOB #8.5 grams 02/02/23 [Rx Last Taken 03/04/23] furosemide 40 mg tablet (Lasix) 40 mg PO DAILY fluid 02/02/23 [History Last Taken 03/03/23] potassium chloride 20 mEq tablet,extended release 20 meq PO DAILY supplement 02/02/23 [History Last Taken 03/03/23] ipratropium bromide 42 mcg (0.06 %) nasal spray 2 spray intranasal DAILY 03/05/23 [History Last Taken 03/03/23] metoprolol tartrate 50 mg tablet 50 mg PO DAILY 03/10/23 [History Last Taken Unknown] Allergy/AdvReac Type Severity Reaction Status Date / Time No Known Allergies Allergy Verified 03/10/23 21:31 Family History Mother Cancer Hypertension EtOH dependence Father Hypertension EtOH dependence Surgical History History of colonoscopy History of thoracentesis Hx of appendectomy Hx of tonsillectomy Social History Smoking Status: Former smoker Tobacco: How many years used: 53 Electronic Cigarette Use: not used how long ago did patient quit smoking: quit in 2001 alcohol intake: current alcohol intake frequency: holidays/special occasions only details: Hx 4 EtOH shots q HS. substance use type: does not use caffeine: No ROS ROS Narrative Admission Review of Systems: CONSTITUTIONAL: No weight loss, fever, chills, + weakness or fatigue. HEENT: Eyes: No visual loss, blurred vision, double vision or yellow sclerae. Ears, Nose, Throat: No hearing loss, sneezing, congestion, runny nose or sore throat. SKIN: No rash or itching, lesions, wounds. CARDIOVASCULAR: No chest pain, chest pressure or chest discomfort, palpitations, edema, orthopnea, syncopal events. RESPIRATORY: + Shortness of breath, cough without marked sputum, wheezing, CT in place. No hemoptysis. GASTROINTESTINAL: + anorexia. No nausea, vomiting or diarrhea, abdominal pain, melena, BRBPR. GENITOURINARY: + Chronic No dysuria, frequency, urgency or retention. NEUROLOGICAL: No headache, dizziness, syncope, paralysis, ataxia, numbness or tingling in the extremities, focal weakness, change in bowel or bladder control, seizure. MUSCULOSKELETAL: + muscle, back pain, joint pain or stiffness. HEMATOLOGIC: + anemia, easy bleeding or bruising. LYMPHATICS: No enlarged nodes. No history of splenectomy. PSYCHIATRIC: No history of depression or anxiety. ENDOCRINOLOGIC: + reports of sweating, cold or heat intolerance. No polyuria or polydipsia. ALLERGIES: + rhinitis. Vital Signs Vital Signs Vital Signs: 03/10/23 21:31 03/10/23 21:34 03/10/23 21:36 Temperature 97.7 F L Temperature Source Temporal Pulse Rate 132 H Respiratory Rate 20 H Respiratory Effort Short of Breath Respiratory Pattern Tachypnea Blood Pressure 127/83 H Blood Pressure Mean 97 Pulse Ox 93 Oxygen Delivery Method Nasal Cannula Oxygen Flow Rate (L/min) 4 03/10/23 21:58 Temperature Temperature Source Pulse Rate 116 H Respiratory Rate 34 H Respiratory Effort Respiratory Pattern Blood Pressure 117/86 H Blood Pressure Mean 96 Pulse Ox 92 Oxygen Delivery Method Nasal Cannula Oxygen Flow Rate (L/min) 4 Weight Weight: 179 lb 7.3 oz Body Mass Index (BMI) 26.4 Physical Exam Narrative Physical Examination: General: Awake, alert, oriented x 3 and cooperative, seated upright in bed in no apparent distress. Skin: Normal color, normal turgor, no icterus, no cyanosis except for very staged ecchymoses and abrasions to the extremities primarily. HEENT: AT/NC, EOMI, PERRLA, dry MM, no carotid bruits or JVD noted. Lungs: Diffusely diminished, greater bases, distant, mildly increased respiratory rate but no distress, right-sided lower chest with tube in place covered, decreased air movement significantly with occasional end expiratory wheeze, no current rales or marked rhonchi. Heart: Irregular irregular; no gallop, rub audible. Abdomen: Soft, NTTP, ND, mildly hyperactive BS, no HSM. Extremities: No cyanosis, no clubbing, mild pedal to distal sánchez edema. Neurological: Patient awake, alert, oriented as noted, cognitive function intact; pupils equally reactive to light and accommodation, cranial nerves grossly normal, moving all 4 extremities, no focal deficits, strength moderately to severely globally decreased secondary to acute presentation and underlying comorbidities Psychiatric: Affect appears flat, fatigued, no acute evidence of depressive or anxiety feelings. Results Lab / Micro Data 03/10/23 21:45 03/10/23 21:45 Labs: Laboratory Results - last 24 hr 03/10/23 21:45: WBC 8.0, RBC 4.30 L, Hgb 13.2, Hct 41.0, MCV 95.3 H, MCH 30.7, MCHC 32.2, RDW Std Deviation 46.6 H, RDW Coeff of Glenn 13.2, Plt Count 166, MPV 9.5, Immature Gran % (Auto) 0.400, Neut % (Auto) 71.2 H, Lymph % (Auto) 15.3 L, [place] % (Auto) 8.9, Eos % (Auto) 3.7, Baso % (Auto) 0.5, Absolute Neuts (auto) 5.7, Absolute Lymphs (auto) 1.23, Nucleated RBC % 0, Sodium 143, Potassium 3.7, Chloride 109 H, Carbon Dioxide 30.0, Anion Gap 4 L, BUN 13, Creatinine 0.78, Estim Creat Clear Calc 54.99, Est GFR (MDRD) Af Amer 122, Est GFR (MDRD) Non-Af 101, BUN/Creatinine Ratio 16.6, Glucose 128 H, Calcium 8.6, Troponin I High Sens 17, B-Natriuretic Peptide 126.1 H Rhythm Strip Rhythm Strip: A-fib Rate: 134 Ectopy: None Radiology Impression Chest X-Ray 03/10/23 22:15 IMPRESSION: Right chest tube terminates over the right lung apex at the medial aspect. Small right pleural effusion is stable to mildly decreased in size. Opacities in the right mid and lower lung concerning for infection are stable to mildly increased. Similar mild opacities in the left lower lung are grossly stable. Electronically Signed: Antonio Aranda MD at 22:39 EDT , Assessment & Plan Assessment/Plan (1) Shortness of breath: PLAN: Plan The patient is an 82 y/o M w/ PMHx: History EtOH abuse now reports socially only, Anxiety and Depression, BPH, Chronic Hypoxic Respiratory Failure (3L NC) with Mixed Obstructive and Restrictive Ventilatory Defect/Bronchiectasis, PAF, RLS, HTN, HLD, GERd, Former tobacco use, recent ED evaluation on 03/05/23 with recent diagnosis of adenocarcinoma of the lung via thoracentesis performed 02/27/2023 with pathology positive with worsening dyspnea with CT of the chest upon ED evaluation with a loculated pleural effusion moderate in size on the right with reviewed per pulmonary medicine with recommendation for transfer to tertiary facility for CT surgery evaluation for consideration of VATS versus pleurodesis with eventual placement of pleural catheter and discharged to home who now re-presents to the [facility] ED on 03/10/23 with increasing dyspnea over the last 7 hours gradually worsening with associated orthopnea, worse with exertion and when he attempts to lay flat with no productive cough nor any upper respiratory type symptoms or fever or chills with no associated chest discomfort prompting eventual ED evaluation. #1. Dyspnea secondary to Chronic Hypoxic Respiratory Failure (3L NC) with Mixed Obstructive and Restrictive Ventilatory Defect/Bronchiectasis with Exacerbation complicated by #2, #3, #4: Will admit to PCU given RVR, maintain on oxygen with wean as tolerated to room air/home oxygen supplementation, continue ATC duonebs, PRN albuterol, IV methylprednisolone, HOB, IS parameters, will obtain sputum Cx, respiratory viral panel, procalcitonin, will hold on immediately abx therapy but low threshold to add if appropriate, CXR findings with stable findings recently treated with antibiotic therapies. If procalcitonin notable certainly could initiate broad-spectrum antibiotic therapy but suspect many of the film findings are from underlying scarring and low threshold to repeat CT chest. #2. Paroxysmal atrial fibrillation w/ RVR: EKG in ED w/ atrial fibrillation w/ RVR. Patient administered initially Cardizem bolus and eventually placed on a drip in ED. Will maintain on telemetry, obtain cardiac enzyme serial set, obtain magnesium level, obtain TSH level. Recent 09/05/2022 echocardiogram with EF 55%, trivial XIANG, moderately dilated aortic root. We will continue current Cardizem drip and chronic oral anticoagulation with overlap with patient metoprolol and attempt to wean off. #3. 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 #4. Adenocarcinoma of left lung: Still ongoing staging and evaluation, following with pulmonary and oncology, patient amenable to aggressive treatments, encourage continued outpatient follow-up. #5. History alcohol abuse: Reports previous history of 4 alcoholic shots daily however has transition to social only and currently reports his last drink was 1 month prior to current presentation, given history would benefit from complete sobriety. #6. Hypertension: Continue home regimen including amlodipine, Lasix, metoprolol although currently also is noted on IV Cardizem drip thus will prioritize at this point rate control, PRN hydralazine. #7. Hyperlipidemia: Not on statin therapy, defer to outpatient #8. Former tobacco use: Encourage continued tobacco cessation. #9. Former call abuse: Previously heavy alcohol, currently transition to to holidays and special occasions only, given history encourage complete sobriety. #10. Allergic rhinitis: We will continue patient home ipratropium bromide nasal spray. #11. GERD: We will continue patient home PPI. #12. BPH: Continue patient home finasteride regimen. #13. DVT prophylaxis: Continue home eliquis. #14. CODE status: Patient HCPOA is Deana Barr a close friend who we he notes is theodore to a daughter and living will is currently in place. Discussed CODE status at length including difference between FULL code, DNR-CCA and DNR-CC status. Following discussions about the differences in these status, requested Full Code. Advanced Care Planning Face to Face Time: 16 minutes. Charges/Coding Visit Charges Inpatient E&M: 62026 Init Hosp L3 Procedures Hospitalists Procedures: 36461 Advncd Care Plan 30 Min
[2023-03-10] MEDS: MethylPREDNISolone 125 MG/2 ML Vial IV (23:05)
[2023-03-10] MEDS: Diltiazem 125 MG in Dextrose 5%-Water (100mL Bag) 100 ML CONT INF (23:06)
[2023-03-10 23:31] LABS: Phosphorus 3.2 mg/dL (2.5-4.9)
[2023-03-10 23:40] LABS: Procalcitonin 0.06 ng/mL (0.00-0.09)
[2023-03-11] VITALS (19 sets, daily range): BP systolic 102–139; BP diastolic 54–105; PULSE 72–108; RESP 14–21; TEMP 36.1–37; O2SAT 90–95; BMI 25.3
[2023-03-11 01:52] LABS: Troponin-I HS 18 pg/mL (3.0-78.0)
[2023-03-11 04:45] LABS: Troponin-I HS 18 pg/mL (3.0-78.0)
[2023-03-11] MEDS: 0.9% Saline Lock 10 ML Syringe IV ×3 (06:02→17:30)
[2023-03-11 07:04] LABS: Absolute Lymphocyte Count 0.39 X10^3/uL (0.83-4.51); Basophil# 0.02 X10^3/uL; Basophil% 0.3 % (0-1); Eosinophil# 0.01 X10^3/uL; Eosinophils% 0.1 % (0-5); Hematocrit 37.7 % (40-54); Hemoglobin 12.2 g/dL (13.0-16.5); Lymphocyte # 0.39 X10^3/ul (0.83-4.51); Lymphocyte % 5.2 % (19-41); Mean Corp Hgb Conc 32.4 g/dL (32-36); Mean Corpuscular Hgb 30.4 pg (27.0-32.0); Mean Platelet Vol. 9.5 fl (6.2-12.0); Monocyte# 0.04 X10^3/uL; Monocyte% 0.5 % (0-10); NRBC Flagged by Analyzer 0 % (0-5); Neutrophil # 6.99 X10^3/uL (2.7-7.7); Neutrophil % 93.4 % (47-70); POSITIVE DIFFERENTIAL YES; POSITIVE MORPHOLOGY YES; Platelet Count 141 K/mm3 (150-450); RBC Distribution Width CV 13.2 % (11.6-14.6); RBC Distribution Width SD 45.5 fl (35.1-43.9); Red Blood Count 4.01 M/mm3 (4.6-6.2); White Blood Count 7.5 K/mm3 (4.4-11.0)
[2023-03-11 07:07] LABS: Differential Indicated SCAN CRITERIA MET
[2023-03-11] MEDS: Ipratropium/Albuterol Sulfate 3 ML AMPUL.NEB INHALATION ×4 (07:09→20:10)
[2023-03-11 07:22] LABS: Troponin-I HS 16 pg/mL (3.0-78.0)
[2023-03-11 07:46] LABS: Differential Comment SCANNED
[2023-03-11 07:55] LABS: ALB/GLOB Ratio 0.5 RATIO (0.9-2.4); AST(SGOT) 21 U/L (15-37); Alanine Aminotransfer ALT/SGPT 21 U/L (16-61); Albumin, Serum 2.2 g/dL (3.2-5.0); Alkaline Phosphatase 80 U/L (45-117); Anion Gap 7 (5-15); BUN 13 mg/dL (7-18); Calcium,Total 8.4 mg/dL (8.5-10.1); Chloride 111 mmol/L (98-107); Creatinine, Serum 0.69 mg/dL (0.70-1.30); EST Glomerular Filtration Rate 117 mL/min (>60); Est Glom Filt Rate - Afr Amer 141 mL/min (>60); Estimated Creatinine Clearance 54.99 ml/min; Globulin 4.3 g/dL (2.2-4.2); Glucose 178 mg/dL (74-106); Potassium 3.9 mmol/L (3.5-5.1); Protein, Total 6.5 g/dL (6.4-8.2); Sodium Level 140 mmol/L (136-145); Thyroid Stim Hormone (TSH) 1.89 uIU/mL (0.358-3.74)
[2023-03-11] MEDS: Furosemide 40 MG Tablet PO (08:07)
[2023-03-11] MEDS: Pantoprazole Sodium 20 MG Tablet PO (08:08)
[2023-03-11] MEDS: amLODIPine 10 MG Tablet PO (08:08)
[2023-03-11] MEDS: Multivitamins,Therapeutic Tablet 1 TABLET PO (08:08)
[2023-03-11] MEDS: Ipratropium Bromide 0.06% NASAL SPRAY 2 SPRAY NASAL (08:08)
[2023-03-11] MEDS: Metoprolol Tartrate 50 MG Tablet PO (08:09)
[2023-03-11] MEDS: APIXABAN 5 MG TABLET PO (08:10)
[2023-03-11] MEDS: Potassium Chloride Oral Tablet 20 MEQ PO (08:10)
[2023-03-11] MEDS: Finasteride 5 MG Tablet PO (08:11)
--- NOTE | 2023-03-11 08:28 | PCM.PN.HOSP ---
Reason for Visit Reason for Visit: Diagnoses Shortness of breath (03/10/23) Subjective Subjective Patient was a evaluated this morning with decreased shortness of breath and his tachycardia has resolved with his heart rate in the ~70 bpm range. He is still on his Cardizem drip and is eating well and appears comfortable. He denies significant pain or new issues at this time but he admits he is very tired of being sick and breathless and he is considering just wanting to be made comfortable as his CXR today shows a decreasing Right effusion since admission. Objective Data Objective Data Vital Signs: Vital Signs Temp Pulse Resp BP Pulse Ox O2 Del Method O2 Flow Rate 98.6 F 84 15 139/74 H 92 Nasal Cannula 3 03/11/23 08:16 03/11/23 08:16 03/11/23 08:16 03/11/23 08:16 03/11/23 08:16 03/11/23 08:16 03/11/23 08:16 Oxygen Flow Rate (L/min) 3 Oxygen Delivery Method Nasal Cannula Weight: 171 lb 8.314 oz Body Mass Index (BMI) 25.3 Intake & Output: Intake and Output for Last 24 Hours 03/09/23 03/10/23 03/11/23 23:59 23:59 23:59 Intake Total 3.25 / 3.25 342.59 / 342.59 Balance 3.25 / 3.25 342.59 / 342.59 Lab / Micro Data Attestation: I reviewed the patient's lab results. 03/11/23 06:50 03/11/23 06:50 Labs: Laboratory Results - last 24 hr 03/10/23 21:45: WBC 8.0, RBC 4.30 L, Hgb 13.2, Hct 41.0, MCV 95.3 H, MCH 30.7, MCHC 32.2, RDW Std Deviation 46.6 H, RDW Coeff of Glenn 13.2, Plt Count 166, MPV 9.5, Immature Gran % (Auto) 0.400, Neut % (Auto) 71.2 H, Lymph % (Auto) 15.3 L, [place] % (Auto) 8.9, Eos % (Auto) 3.7, Baso % (Auto) 0.5, Absolute Neuts (auto) 5.7, Absolute Lymphs (auto) 1.23, Nucleated RBC % 0, Sodium 143, Potassium 3.7, Chloride 109 H, Carbon Dioxide 30.0, Anion Gap 4 L, BUN 13, Creatinine 0.78, Estim Creat Clear Calc 54.99, Est GFR (MDRD) Af Amer 122, Est GFR (MDRD) Non-Af 101, BUN/Creatinine Ratio 16.6, Glucose 128 H, Calcium 8.6, Phosphorus 3.2, Magnesium 2.0, Troponin I High Sens 17, B-Natriuretic Peptide 126.1 H, Procalcitonin 0.06 03/11/23 01:28: Troponin I High Sens 18 03/11/23 03:49: Troponin I High Sens 18 03/11/23 06:50: WBC 7.5, RBC 4.01 L, Hgb 12.2 L, Hct 37.7 L, MCV 94.0, MCH 30.4, MCHC 32.4, RDW Std Deviation 45.5 H, RDW Coeff of Glenn 13.2, Plt Count 141 L, MPV 9.5, Immature Gran % (Auto) 0.500, Neut % (Auto) 93.4 H, Lymph % (Auto) 5.2 L, [place] % (Auto) 0.5, Eos % (Auto) 0.1, Baso % (Auto) 0.3, Absolute Neuts (auto) 7.0, Absolute Lymphs (auto) 0.39 L, Nucleated RBC % 0, Differential Comment SCANNED, Sodium 140, Potassium 3.9, Chloride 111 H, Carbon Dioxide 22.0, Anion Gap 7, BUN 13, Creatinine 0.69 L, Estim Creat Clear Calc 54.99, Est GFR (MDRD) Af Amer 141, Est GFR (MDRD) Non-Af 117, BUN/Creatinine Ratio 19.0, Glucose 178 H, Calcium 8.4 L, Total Bilirubin 0.50, AST 21, ALT 21, Alkaline Phosphatase 80, Troponin I High Sens 16, Total Protein 6.5, Albumin 2.2 L, Globulin 4.3 H, Albumin/Globulin Ratio 0.5 L, TSH 1.89 Micro: Microbiology 03/10/23 23:10 Mucosa - Nasopharyngeal Respiratory Panel (PCR) - Final Radiography Diagnostic Testing: Radiology Impression Chest X-Ray 03/10/23 22:15 IMPRESSION: Right chest tube terminates over the right lung apex at the medial aspect. Small right pleural effusion is stable to mildly decreased in size. Opacities in the right mid and lower lung concerning for infection are stable to mildly increased. Similar mild opacities in the left lower lung are grossly stable. Electronically Signed: Antonio Aranda MD at 22:39 EDT , Chest X-Ray 03/10/23 22:15 IMPRESSION: Right chest tube terminates over the right lung apex at the medial aspect. Small right pleural effusion is stable to mildly decreased in size. Opacities in the right mid and lower lung concerning for infection are stable to mildly increased. Similar mild opacities in the left lower lung are grossly stable. Electronically Signed: Antonio Aranda MD at 22:39 EDT , Chest X-Ray 03/11/23 12:45 IMPRESSION: A right-sided chest tube is in situ and is unchanged. Interval decrease in size of the right pleural effusion with persistent infiltration in the right upper as well as right middle and right lower Mild increased markings at the left lung base. Electronically Signed: Rafael Theodore MD at 13:41 EDT , Temp Pulse Resp BP Pulse Ox O2 Del Method O2 Flow Rate 98.6 F 75 18 139/74 H 92 Nasal Cannula 3.5 03/11/23 08:16 03/11/23 15:03 03/11/23 15:03 03/11/23 08:16 03/11/23 08:16 03/11/23 08:27 03/11/23 15:32 03/11/23 03/11/23 03/11/23 06:50 03:49 01:28 WBC 7.5 RBC 4.01 L Hgb 12.2 L Hct 37.7 L MCV 94.0 MCH 30.4 MCHC 32.4 RDW Std Deviation 45.5 H RDW Coeff of Glenn 13.2 Plt Count 141 L MPV 9.5 Immature Gran % (Auto) 0.500 Neut % (Auto) 93.4 H Lymph % (Auto) 5.2 L Oscoda % (Auto) 0.5 Eos % (Auto) 0.1 Baso % (Auto) 0.3 Absolute Neuts (auto) 7.0 Absolute Lymphs (auto) 0.39 L Nucleated RBC % 0 Differential Comment SCANNED Sodium 140 Potassium 3.9 Chloride 111 H Carbon Dioxide 22.0 Anion Gap 7 BUN 13 Creatinine 0.69 L Estim Creat Clear Calc 54.99 Est GFR (MDRD) Af Amer 141 Est GFR (MDRD) Non-Af 117 BUN/Creatinine Ratio 19.0 Glucose 178 H Calcium 8.4 L Phosphorus Magnesium Total Bilirubin 0.50 AST 21 ALT 21 Alkaline Phosphatase 80 Troponin I High Sens 16 18 18 B-Natriuretic Peptide Total Protein 6.5 Albumin 2.2 L Globulin 4.3 H Albumin/Globulin Ratio 0.5 L Procalcitonin TSH 1.89 03/10/23 21:45 WBC 8.0 RBC 4.30 L Hgb 13.2 Hct 41.0 MCV 95.3 H MCH 30.7 MCHC 32.2 RDW Std Deviation 46.6 H RDW Coeff of Glenn 13.2 Plt Count 166 MPV 9.5 Immature Gran % (Auto) 0.400 Neut % (Auto) 71.2 H Lymph % (Auto) 15.3 L [place] % (Auto) 8.9 Eos % (Auto) 3.7 Baso % (Auto) 0.5 Absolute Neuts (auto) 5.7 Absolute Lymphs (auto) 1.23 Nucleated RBC % 0 Differential Comment Sodium 143 Potassium 3.7 Chloride 109 H Carbon Dioxide 30.0 Anion Gap 4 L BUN 13 Creatinine 0.78 Estim Creat Clear Calc 54.99 Est GFR (MDRD) Af Amer 122 Est GFR (MDRD) Non-Af 101 BUN/Creatinine Ratio 16.6 Glucose 128 H Calcium 8.6 Phosphorus 3.2 Magnesium 2.0 Total Bilirubin AST ALT Alkaline Phosphatase Troponin I High Sens 17 B-Natriuretic Peptide 126.1 H Total Protein Albumin Globulin Albumin/Globulin Ratio Procalcitonin 0.06 TSH Rhythm Strip Rhythm Strip: A-fib Rate: 134 Ectopy: None Physical Exam Const alert, oriented x3, no apparent distress, average body habitus, no limitations, healthy appearing and well nourished General Appearance: cooperative, comfortable, disheveled and other Orientation / Consciousness: awake, oriented to person, oriented to place and oriented to time Exam Limitations: no limitations Nutritional Appearance: other Other Details: Patient appears to have a normal weight and to be well-nourished. HEENT normocephalic, head/scalp atraumatic, hearing grossly normal bilaterally, external ears normal and EAC's normal Head and Scalp: normal to inspection, normocephalic and atraumatic Face and Sinus: normal facial exam Nose: external nose normal General Ear: hearing grossly impaired External Ear: external ears normal Mouth: oral and palatal mucosa normal, lips normal, tongue normal and salivary gland normal Throat: posterior oropharynx normal Eyes PERRL, EOMs intact bilaterally, conjunctivae normal and no scleral icterus General Eye: normal appearance of both eyes and normal light reflex Visual Acuity: acuity normal Neck full ROM Lymph Lymphatic: no lymphadenopathy noted Chest inspection of chest normal and palpation of chest normal Chest: symmetrical chest wall rise and chest tube right Resp normal respiratory effort and normal air movement Effort and Inspection: able to speak in complete sentences Auscultation: clear to auscultation bilaterally and diminished lung sounds Cardio Cardio Narrative: Irregularly irregular at approximately 70 bpm. No rubs clicks murmurs gallops were appreciated. Palpation: normal PMI Rate: other Other Details: Irregular rate Rhythm: regular rhythm Heart Sounds: S1 normal and S2 normal Peripheral Pulses: pulses 2+ throughout GI normal to inspection, nondistended, normoactive bowel sounds, soft to palpation, non-tender and non-distended no CVA tenderness and external exam normal Back/Spine no CVA tenderness, normal ROM and normal to inspection Extremity normal to inspection and full ROM Skin no rashes or lesions noted, no wounds and skin turgor normal Neuro oriented x3, CN's II-XII intact bilaterally, moves all extremities, no focal motor deficits and no sensory deficits noted Motor Exam: strength 5/5 throughout Psych mental status grossly normal, thought process normal, cooperative, affect normal, speech normal and activity/motor behavior normal Assessment & Plan Assessment/Plan (1) Shortness of breath: PLAN: Plan The patient is an 82 y/o M w/ PMHx: History EtOH abuse now reports socially only, Anxiety and Depression, BPH, Chronic Hypoxic Respiratory Failure (3L NC) with Mixed Obstructive and Restrictive Ventilatory Defect/Bronchiectasis, PAF, RLS, HTN, HLD, GERd, Former tobacco use, recent ED evaluation on 03/05/23 with recent diagnosis of adenocarcinoma of the lung via thoracentesis performed 02/27/2023 with pathology positive with worsening dyspnea with CT of the chest upon ED evaluation with a loculated pleural effusion moderate in size on the right with reviewed per pulmonary medicine with recommendation for transfer to tertiary facility for CT surgery evaluation for consideration of VATS versus pleurodesis with eventual placement of pleural catheter and discharged to home who now re-presents to the [facility] ED on 03/10/23 with increasing dyspnea over the last 7 hours prior to admission gradually worsening with associated orthopnea, worse with exertion and when he attempts to lay flat with no productive cough nor any upper respiratory type symptoms or fever or chills with no associated chest discomfort prompting eventual ED evaluation. #1. Dyspnea secondary to Chronic Hypoxic Respiratory Failure (3L NC) with Mixed Obstructive and Restrictive Ventilatory Defect/Bronchiectasis with Exacerbation complicated by #2, #3, #4: Patient was admitted to PCU given his RVR (which is now resolved), maintain on oxygen with wean as tolerated to room air/home oxygen supplementation, continue ATC duonebs, PRN albuterol, IV methylprednisolone, HOB, IS parameters, will obtain sputum Cx, respiratory viral panel, procalcitonin, will hold on immediately abx therapy but low threshold to add if appropriate, CXR findings with stable findings recently treated with antibiotic therapies. If procalcitonin notable certainly could initiate broad-spectrum antibiotic therapy but suspect many of the film findings are from underlying scarring and low threshold to repeat CT chest. CXR done 03/11/2023 shows decreasing effusion but increasing infiltrates so we will start IV Zosyn. #2. Paroxysmal atrial fibrillation w/ RVR: EKG in ED w/ atrial fibrillation w/ RVR. Patient administered initially Cardizem bolus and eventually placed on a drip in ED with RVR now resolved and patient having heart rate of approximately 70 bpm with patient to robby be transitioned to oral Cardizem. Will maintain on telemetry, obtained cardiac enzyme serial set, obtained magnesium level, obtained TSH level. Recent 09/05/2022 echocardiogram with EF 55%, trivial XIANG, moderately dilated aortic root. We will continue with oral Cardizem and chronic oral anticoagulation with overlap with patient metoprolol and attempt to wean off. #3. 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 #4. Adenocarcinoma of left lung: Still ongoing staging and evaluation, following with pulmonary and oncology, patient amenable to aggressive treatments, we will encourage continued outpatient follow-up. #5. History alcohol abuse: Reports previous history of 4 alcoholic shots daily however has transition to social only and currently reports his last drink was 1 month prior to current presentation, given history would benefit from complete sobriety. #6. Hypertension: Continue home regimen including amlodipine, Lasix, metoprolol although currently also is noted on IV Cardizem drip thus will prioritize at this point rate control, PRN hydralazine. #7. Hyperlipidemia: Not on statin therapy, defer to outpatient #8. Former tobacco use: Encourage continued tobacco cessation. #9. Former EtOH abuse: Previously heavy alcohol, currently transition to to holidays and special occasions only, given history encourage complete sobriety. #10. Allergic rhinitis: We will continue patient home ipratropium bromide nasal spray. #11. GERD: We will continue patient home PPI. #12. BPH: Continue patient home finasteride regimen. #13. DVT prophylaxis: Continue home Eliquis. #14. CODE status: Patient HCPOA is Deana Barr a close friend who we he notes is theodore to a daughter and living will is currently in place. Discussed CODE status at length including difference between FULL code, DNR-CCA and DNR-CC status. Following discussions about the differences in these status, requested Full Code. Total Time: 35 minutes. Charges/Coding Multi Select Codes Visit Charges Visit Charges: 45880 Subs Hosp L2
--- NOTE | 2023-03-11 12:45 | RAD_ITS ---
STUDY: X-RAY CHEST REASON FOR EXAM: Male, 82 years old. SOB TECHNIQUE: Single AP portable view of the chest. COMPARISON: Comparison is made with prior study dated March 10, 2023. FINDINGS: A right-sided chest tube has been placed. The tip is in the medial upper portion of the right upper lobe. Interval decrease in the right pleural effusion. Persistent infiltrate in the right upper and right lower lobes as well as right middle lobe. Stable mild increased markings at the left lung base. Normal size heart. Normal mediastinum and prashant. Normal visualized pulmonary arteries. There is atherosclerotic calcification of the aortic arch with tortuosity. There are diffuse degenerative changes of the visualized thoracic spine. Normal visualized ribs, clavicles, and shoulders. There is no demonstrated abnormality of the visualized soft tissue structures of the upper abdomen. RAD/Chest 1 View (Portable) IMPRESSION: A right-sided chest tube is in situ and is unchanged. Interval decrease in size of the right pleural effusion with persistent infiltration in the right upper as well as right middle and right lower Mild increased markings at the left lung base. Electronically Signed: Rafael Theodore MD at 13:41 EDT ,
[2023-03-11] MEDS: Flu Vacc QS2023-24(65YR UP)/PF 240 MCG/0.7 ML Syringe IM (12:52)
--- NOTE | 2023-03-11 13:21 | CHAPLAIN ---
Type of Pastoral Visit _x__ Initial Visit ___ Follow-up Visit ___ On-call Visit ___ General Patient Visit ___ Spiritual Assessment ___ Family Conference ___ Bereavement ___ Rapid Response ___ Code Blue ___ Other (describe below) Pastoral Care Referral From _x__ Patient ___ Family ___ Nurse ___ Physician ___ Right Of Way Supervisor ___ Supervisor Research Kennel ___ Other (describe below) Sacrament/Intervention _x__ Active listening ___ Anointing ___ Jain ___ Bereavement ___ Communion _x__ Ruby exploration ___ _x__ Life review _x__ Prayer ___ Reconciliation ___ Sacrament of Sick _x__ Supportive presence ___ Wedding ___ Other (describe below) Pastoral Comments patient speaks of his emotional state and how he is handling his situation; pt gives some life review; pt reveals that two wives are as are all five of his children; pt sister is also and now his main support comes from a neighbor; pt states that he trusts in God who has always helped and that he prays nightly; pt welcomes someone to talk with and to have prayers for his health; pt hopes to continue living as he believes God may still have something for him to do;
--- NOTE | 2023-03-11 13:30 | CASEMGMT ---
RN?CM?EHS MANAGER?CM?to room to meet with patient for initial transition planning/care coordination?assessment.?RN?CM?introduced self and role at [facility].? Pt voices understanding and consents to?assessment?at this time.? Pt sitting up in chair in no distress at this time.? Pt asked JONNA ARRIOLA to call his friend/caregiver/POKeyonna Hall to obtain some of the following information, as he was not able to remember everything. Call placed to Keyonna and the following information obtained from both pt and Keyonna.? Care providers, pharmacy, and demographics verified/updated at this time. PCP: Dr Grey Specialists: [facility]/cardiology, Dr Monroy-pulmonology. Keyonna states they are planning on scheduling appt w/oncology. Pt to get PET scan on Thursday. Preferred [facility]acy: [facility] Insurance: [employer] [facility] Prescription Benefit:?Yes LNOK: Friend/POKeyonna Hall. Living Arrangements: Lives alone in 1 level apartment w/one step to enter. Pt is independent w/ADL's. Keyonna sets up weekly med containers and does all home mgnt tasks for him--meals, laundry, and cleaning. Passport/Direction Home: Referral was sent by during last admission. Per Keyonna, pt did not qualify for services. Transportation:?Keyonna takes pt grocery shopping and to all appts. DME: Pt has the following DME:?grab bars, cane, walker, and medical alert. Pt states he has O2 through [employer] @ 3l/m continuously and has a pulse ox. Keyonna states she can bring in portable O2 tank @ discharge for pt to go home on. Keyonna and pt deny needing any further DME. HHC/SNF: Discussed discharge planning. Pt states, I ain't going anywhere. I'm going home. Keyonna will help me. Keyonna verified she can assist pt as needed. Keyonna states pt was just set up w/[place] [facility]:SN and PT/OT by [facility] when he was discharged 03/09 w/Pleur-x cath. Keyonna states 1st appt was scheduled for today. Keyonna and pt would like to still have them @ discharge. They decline wanting list of other HHC options. [employer], Kiya, made aware. Pt and Keyonna wish for pt to return home and state no concerns with him going home at time of discharge.? CM?to follow for any increase in home oxygen needs and any further discharge planning/needs.? Pt and Keyonna voice no further concerns/needs at this time.? Advised them to ask for?CM?if any further questions/concerns/needs arise.? They voice understanding. PLAN:??Home w/HHC. Follow for any increase in home O2 needs. Pedrito BSN?RN?CM
--- NOTE | 2023-03-11 14:51 | CASEMGMT ---
Discharge Planning HH referral sent to [facility] via [facility]. Carmen Valdez, Discharge Planning Asst.
[2023-03-11] MEDS: dilTIAZem CD 180 MG Capsule 360 MG PO (15:24)
[2023-03-11] MEDS: Piperacil/Tazobactam 3.375 GM in 0.9% Normal Saline (50mL MB+) 50 ML IV ×2 (17:30→21:17)
[2023-03-11] MEDS: hydrALAZINE 10 MG Tablet PO (21:17)
[2023-03-12] VITALS (14 sets, daily range): BP systolic 110–118; BP diastolic 58–70; PULSE 73–88; RESP 15–20; TEMP 36.1–36.9; O2SAT 92–97; BMI 26.2
[2023-03-12] MEDS: Piperacil/Tazobactam 3.375 GM in 0.9% Normal Saline (50mL MB+) 50 ML IV ×3 (05:19→20:34)
[2023-03-12] MEDS: hydrALAZINE 10 MG Tablet PO ×3 (05:19→20:32)
[2023-03-12 07:06] LABS: Basophil# 0.01 X10^3/uL; Basophil% 0.1 % (0-1); Hematocrit 33.6 % (40-54); Hemoglobin 11.1 g/dL (13.0-16.5); Lymphocyte % 5.1 % (19-41); Mean Corpuscular Hgb 31.2 pg (27.0-32.0); Mean Corpuscular Volume 94.4 fL (80-94); Mean Platelet Vol. 9.3 fl (6.2-12.0); Monocyte# 0.26 X10^3/uL; Monocyte% 2.7 % (0-10); NRBC Flagged by Analyzer 0 % (0-5); Neutrophil # 8.95 X10^3/uL (2.7-7.7); Neutrophil % 91.4 % (47-70); POSITIVE DIFFERENTIAL YES; Platelet Count 151 K/mm3 (150-450); RBC Distribution Width CV 13.2 % (11.6-14.6); RBC Distribution Width SD 45.9 fl (35.1-43.9); Red Blood Count 3.56 M/mm3 (4.6-6.2); White Blood Count 9.8 K/mm3 (4.4-11.0)
[2023-03-12] MEDS: Ipratropium/Albuterol Sulfate 3 ML AMPUL.NEB INHALATION ×3 (07:15→22:02)
--- NOTE | 2023-03-12 07:15 | PCM.PN.HOSP ---
Reason for Visit Reason for Visit: Diagnoses Shortness of breath (03/10/23) Subjective Subjective Patient seen this AM. He is beginning to develop hospital psychosis with [id number] confusion and agitation noted by the staff. He also complains of a sore throat and severe malaise with early whitish film on his tongue and posterior oral mucosa. He does admit to a productive cough with yellow-green sputum and he denies wheezing at this time with the patient comfortable on 3 L of oxygen continuously. I spoke directly with the patient about his living circumstances as he currently lives alone and only has a neighbor who occasionally helps him. Given his frail condition and multiple comorbidities it is felt he would likely benefit from consultation with palliative care as his condition is unlikely to dramatically improve and he walked so far that he likely would not qualify for inpatient rehabilitation. I also spoke with his nurse to order every other day aspiration of his Right Pleurx drain to continue his previous orders at home. I spoke with the [facility] Worker to expedite his disposition with plan for discharge home with palliative care that is likely to transition to hospice. Objective Data Objective Data Vital Signs: Vital Signs Temp Pulse Resp BP Pulse Ox O2 Del Method O2 Flow Rate 97 F L 76 16 116/67 94 Nasal Cannula 3 03/12/23 03:00 03/12/23 05:19 03/12/23 03:00 03/12/23 03:00 03/12/23 03:00 03/12/23 03:00 03/12/23 03:00 Oxygen Flow Rate (L/min) 3 Oxygen Delivery Method Nasal Cannula Weight: 177 lb 14.609 oz Body Mass Index (BMI) 26.2 Intake & Output: Intake and Output for Last 24 Hours 03/10/23 03/11/23 03/12/23 23:59 23:59 23:59 Intake Total 3.25 / 3.25 389.88 / 629.88 530 / 530 Balance 3.25 / 3.25 389.88 / 629.88 530 / 530 Medical Nutrition Assessment Dietitian: Malnutrition Criteria Met Start: 03/11/23 15:07 Freq: Status: Active Protocol: Document 03/11/23 15:07 SUSANNAH (Rec: 03/11/23 15:07 [id number]) Nutrition Malnutrition Evidence of Malnutrition Exists Yes Malnutrition (moderate): Acute Illness/Injury Evidenced By Suboptimal Energy Intake ( Moderate),Weight Loss (Severe) ,Physical Changes (Moderate) Clinical Problem Acute Disease or Injury Related Malnutrition Etiology moderate acute on possibly chronic malnutrition related to inadequate energy intake w/ recent acute illness/ hospitalization Signs/Symptoms as evidenced by unintentional 15% wt loss x 1 month, estimated PO intake meeting < 75% of estimated energy needs > 1 month, mild muscle wasting /fat loss evident per physical exam in orbital, clavicle, acromion, and temporal areas Status Active Problem Recommendation Dietitian Recommendations/Changes continue regular diet; will add 8oz ensure w/ meals given evidence of malnutrition Lab / Micro Data Attestation: I reviewed the patient's lab results. 03/12/23 06:41 03/12/23 06:41 Labs: Laboratory Results - last 24 hr 03/11/23 06:50: Differential Comment SCANNED, Sodium 140, Potassium 3.9, Chloride 111 H, Carbon Dioxide 22.0, Anion Gap 7, BUN 13, Creatinine 0.69 L, Estim Creat Clear Calc 54.99, Est GFR (MDRD) Af Amer 141, Est GFR (MDRD) Non-Af 117, BUN/Creatinine Ratio 19.0, Glucose 178 H, Calcium 8.4 L, Total Bilirubin 0.50, AST 21, ALT 21, Alkaline Phosphatase 80, Troponin I High Sens 16, Total Protein 6.5, Albumin 2.2 L, Globulin 4.3 H, Albumin/Globulin Ratio 0.5 L, TSH 1.89 Micro: Microbiology 03/10/23 23:10 Mucosa - Nasopharyngeal Respiratory Panel (PCR) - Final Radiography Diagnostic Testing: Radiology Impression Chest X-Ray 03/11/23 12:45 IMPRESSION: A Right-sided chest tube is in situ and is unchanged. Interval decrease in size of the right pleural effusion with persistent infiltration in the right upper as well as right middle and right lower Mild increased markings at the left lung base. Electronically Signed: Rafael Theodore MD at 13:41 EDT , Rhythm Strip Rhythm Strip: A-fib Rate: 134 Ectopy: None Physical Exam Narrative Physical Examination: General: Awake, alert, oriented x 3 and cooperative, seated upright in bed in no apparent distress. Skin: Normal color, normal turgor, no icterus, no cyanosis except for very staged ecchymoses and abrasions to the extremities primarily. HEENT: AT/NC, EOMI, PERRLA, dry MM, no carotid bruits or JVD noted. Lungs: Diffusely diminished, greater bases, distant, mildly increased respiratory rate but no distress, right-sided lower chest with tube in place covered, decreased air movement significantly with occasional end expiratory wheeze, no current rales or marked rhonchi. Heart: Irregular irregular; no gallop, rub audible. Abdomen: Soft, NTTP, ND, mildly hyperactive BS, no HSM. Extremities: No cyanosis, no clubbing, mild pedal to distal sánchez edema. Neurological: Patient awake, alert, oriented as noted, cognitive function intact; pupils equally reactive to light and accommodation, cranial nerves grossly normal, moving all 4 extremities, no focal deficits, strength moderately to severely globally decreased secondary to acute presentation and underlying comorbidities Psychiatric: Patient is becoming confused and agitated but is still able to hold meaningful conversation if patiently redirected. Const alert, oriented x3, no apparent distress, average body habitus, no limitations, healthy appearing and well nourished General Appearance: cooperative, comfortable, well kempt, disheveled, ill appearing Positive for chronically and other Orientation / Consciousness: awake, oriented to person, oriented to place and oriented to time Exam Limitations: no limitations Nutritional Appearance: overweight, obese and other Other Details: Patient appears to have a normal weight and to be well-nourished. HEENT normocephalic, head/scalp atraumatic, hearing grossly normal bilaterally, external ears normal and EAC's normal Eyes PERRL, EOMs intact bilaterally, conjunctivae normal and no scleral icterus General Eye: normal appearance of both eyes and normal light reflex Visual Acuity: acuity normal Neck full ROM Lymph Lymphatic: no lymphadenopathy noted Chest inspection of chest normal and palpation of chest normal Chest: symmetrical chest wall rise and chest tube right Resp Resp Narrative: Decreased air movement throughout. Effort and Inspection: able to speak in complete sentences Auscultation: clear to auscultation bilaterally and diminished lung sounds Cardio regular rate Cardio Narrative: Irregularly irregular at approximately 70 bpm. No rubs clicks murmurs gallops were appreciated. Palpation: normal PMI Rate: regular rate and other Other Details: Irregular rate Rhythm: regular rhythm Heart Sounds: S1 normal and S2 normal Peripheral Pulses: pulses 2+ throughout GI normal to inspection, nondistended, normoactive bowel sounds, soft to palpation, non-tender and non-distended no CVA tenderness and external exam normal Bladder / Kidney Exam: catheter in place Back/Spine no CVA tenderness, normal ROM and normal to inspection Extremity normal to inspection and full ROM Skin no rashes or lesions noted, no wounds and skin turgor normal Neuro oriented x3, CN's II-XII intact bilaterally, moves all extremities, no focal motor deficits and no sensory deficits noted Motor Exam: strength 5/5 throughout Psych mental status grossly normal, thought process normal, cooperative, affect normal, speech normal and activity/motor behavior normal Assessment & Plan Assessment/Plan (1) Shortness of breath: PLAN: Plan The patient is an 82 y/o M w/ PMHx: History EtOH abuse now reports socially only, Anxiety and Depression, BPH, Chronic Hypoxic Respiratory Failure (3L NC) with Mixed Obstructive and Restrictive Ventilatory Defect/Bronchiectasis, PAF, RLS, HTN, HLD, GERD, Former tobacco use, recent ED evaluation on 03/05/23 with recent diagnosis of adenocarcinoma of the lung via thoracentesis performed 02/27/2023 with pathology positive with worsening dyspnea with CT of the chest upon ED evaluation with a loculated pleural effusion moderate in size on the right with reviewed per pulmonary medicine with recommendation for transfer to tertiary facility for CT surgery evaluation for consideration of VATS versus pleurodesis with eventual placement of pleural catheter and discharged to home who now re-presents to [facility] on 03/10/23 with increasing dyspnea over the last 7 hours prior to admission gradually worsening with associated orthopnea, worse with exertion and when he attempts to lay flat with no productive cough nor any upper respiratory type symptoms or fever or chills with no associated chest discomfort prompting eventual ED evaluation. He has been slow to improve as he realizes his prognosis is poor which has made him more gloomy and pessimistic with Palliative Care consultation pending at this time. #1. Dyspnea secondary to Chronic Hypoxic Respiratory Failure (3L NC) with Mixed Obstructive and Restrictive Ventilatory Defect/Bronchiectasis with Exacerbation complicated by #2, #3, #4: Patient was admitted to PCU given his RVR (which is now resolved), maintain on oxygen with wean as tolerated to room air/home oxygen supplementation, continue ATC duonebs, PRN albuterol, IV methylprednisolone, HOB, IS parameters, will obtain sputum Cx, respiratory viral panel, procalcitonin, will hold on immediately abx therapy but low threshold to add if appropriate, CXR findings with stable findings recently treated with antibiotic therapies. If procalcitonin notable certainly could initiate broad-spectrum antibiotic therapy but suspect many of the film findings are from underlying scarring and low threshold to repeat CT chest. CXR done 03/11/2023 shows decreasing effusion but increasing infiltrates so we started IV Zosyn. His Solumedrol was also stopped in favor of oral Prednisone since he is no longer wheezing and to potentially help decrease his evolving confusion. #2. Paroxysmal atrial fibrillation w/ RVR: EKG in ED w/ atrial fibrillation w/ RVR. Patient administered initially Cardizem bolus and eventually placed on a drip in ED with RVR now resolved and patient having heart rate of approximately 70 bpm with patient to robby be transitioned to oral Cardizem. Will maintain on telemetry, obtained cardiac enzyme serial set, obtained magnesium level, obtained TSH level. Recent 09/05/2022 echocardiogram with EF 55%, trivial XIANG, moderately dilated aortic root. We will continue with oral Cardizem and chronic oral anticoagulation with overlap with patient metoprolol and attempt to wean off. #3. 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 #4. Adenocarcinoma of left lung: Still ongoing staging and evaluation, following with pulmonary and oncology, patient amenable to aggressive treatments, we will encourage continued outpatient follow-up. #5. History alcohol abuse: Reports previous history of 4 alcoholic shots daily however has transition to social only and currently reports his last drink was 1 month prior to current presentation, given history would benefit from complete sobriety. #6. Hypertension: Amlodipine stopped in favor of Hydralazine with concurrent oral Cardizem as per my conversation with the pharmacist on-call. Continue Lasix and Metoprolol as previous. #7. Hyperlipidemia: Not on statin therapy, defer to outpatient #8. Former tobacco use: Encourage continued tobacco cessation. #9. Former EtOH abuse: Previously heavy alcohol, currently transition to to holidays and special occasions only, given history encourage complete sobriety. #10. Allergic rhinitis: We will continue patient home ipratropium bromide nasal spray. #11. GERD: We will continue patient home PPI. #12. BPH: Continue patient home finasteride regimen. #13. DVT prophylaxis: Continue home Eliquis. #14. CODE status: Patient HCPOA is Deana Barr a close friend who we he notes is theodore to a daughter and living will is currently in place. Discussed CODE status at length including difference between FULL code, DNR-CCA and DNR-CC status. Following discussions about the differences in these status, requested Full Code. Total Time: 35 minutes. Charges/Coding Multi Select Codes Visit Charges Visit Charges: 66972 Subs Hosp L2
[2023-03-12 07:26] LABS: Differential Indicated SCAN CRITERIA MET
[2023-03-12 07:35] LABS: ALB/GLOB Ratio 0.6 RATIO (0.9-2.4); AST(SGOT) 18 U/L (15-37); Alanine Aminotransfer ALT/SGPT 19 U/L (16-61); Albumin, Serum 2.2 g/dL (3.2-5.0); Alkaline Phosphatase 69 U/L (45-117); Anion Gap 8 (5-15); BUN 26 mg/dL (7-18); BUN/Creat Ratio 24.3 RATIO (10-20); Calcium,Total 8.3 mg/dL (8.5-10.1); Chloride 107 mmol/L (98-107); Creatinine, Serum 1.07 mg/dL (0.70-1.30); EST Glomerular Filtration Rate 70 mL/min (>60); Est Glom Filt Rate - Afr Amer 85 mL/min (>60); Estimated Creatinine Clearance 51.39 ml/min; Globulin 3.9 g/dL (2.2-4.2); Glucose 161 mg/dL (74-106); Potassium 4.1 mmol/L (3.5-5.1); Protein, Total 6.1 g/dL (6.4-8.2); Sodium Level 140 mmol/L (136-145)
[2023-03-12] MEDS: Acetaminophen 325 MG Tablet 650 MG PO (09:15)
[2023-03-12] MEDS: Potassium Chloride Oral Tablet 20 MEQ PO (09:16)
[2023-03-12] MEDS: dilTIAZem CD 180 MG Capsule 360 MG PO (09:16)
[2023-03-12] MEDS: APIXABAN 5 MG TABLET PO (09:17)
[2023-03-12] MEDS: Metoprolol Tartrate 50 MG Tablet PO (09:17)
[2023-03-12] MEDS: Multivitamins,Therapeutic Tablet 1 TABLET PO (09:18)
[2023-03-12] MEDS: Finasteride 5 MG Tablet PO (09:18)
[2023-03-12] MEDS: Pantoprazole Sodium 20 MG Tablet PO (09:18)
[2023-03-12] MEDS: Furosemide 40 MG Tablet PO (09:18)
[2023-03-12] MEDS: Ipratropium Bromide 0.06% NASAL SPRAY 2 SPRAY NASAL (09:19)
--- NOTE | 2023-03-12 09:45 | CASEMGMT ---
JONNA ARRIOLA called HPOA and caregiver Keyonna to inquire if she was willing to learn Pleurex catheter care. Per Keyonna she is willing to learn. Keyonna had no further questions or concerns. JONNA ARRIOLA updated discharge community health planning director regarding caregiver willing to learn pleurex care. FLAKO will continue to follow this patient and plan for safe discharge.
[2023-03-12] MEDS: NYSTATIN 500,000 UNIT/5 ML UDC 500000 UNIT PO ×4 (11:43→20:34)
--- NOTE | 2023-03-12 14:42 | CASEMGMT ---
JONNA ARRIOLA received order from hospitalist for palliative consult. Palliative screening tool completed and referral sent to [facility].
--- NOTE | 2023-03-12 15:53 | CASEMGMT ---
Physician spoke with patient and Keyonna his healthcare power of rn chronic (HCPOA). They both agreed to hospice at home. SW met with patient and Keyonna and they confirmed they would like hospice. They were agreeable to [facility]. Keyonna was asking if there was extra help that would come out to help patient with bathing and a nurse for meds. LORENA explained SW will make the referral and she will be able to ask them these questions. LORENA explained LORENA will make the referral and someone will call Keyonna to set up a meeting. They agreed with this plan. LORENA spoke with Stephany about the referral and let her know caregiver was interested in aides to help with bathing. Stephany said they are able to do this. LORENA sent referral to [facility]. Mattie LEUNG
[2023-03-12] MEDS: MELATONIN 3 MG TABLET PO (20:32)
[2023-03-13] VITALS (7 sets, daily range): BP systolic 101–116; BP diastolic 64–91; PULSE 72–75; RESP 15–18; TEMP 36.6–36.7; O2SAT 91–97; BMI 26.3
[2023-03-13] MEDS: Piperacil/Tazobactam 3.375 GM in 0.9% Normal Saline (50mL MB+) 50 ML IV ×2 (04:47→14:12)
[2023-03-13] MEDS: hydrALAZINE 10 MG Tablet PO (04:47)
[2023-03-13] MEDS: Ipratropium/Albuterol Sulfate 3 ML AMPUL.NEB INHALATION ×2 (07:28→11:00)
--- NOTE | 2023-03-13 07:54 | CASEMGMT ---
Hospice will meet with patient and family today at 12:30. Mattie Carlson TEACHER DANCING MADHU
[2023-03-13] MEDS: dilTIAZem CD 180 MG Capsule 360 MG PO (08:41)
[2023-03-13] MEDS: Metoprolol Tartrate 50 MG Tablet PO (08:41)
[2023-03-13] MEDS: Potassium Chloride Oral Tablet 20 MEQ PO (08:41)
[2023-03-13] MEDS: Furosemide 40 MG Tablet PO (08:41)
[2023-03-13] MEDS: NYSTATIN 500,000 UNIT/5 ML UDC 500000 UNIT PO ×2 (08:41→14:15)
[2023-03-13] MEDS: predniSONE 20 MG Tablet 60 MG PO (08:41)
[2023-03-13] MEDS: APIXABAN 5 MG TABLET PO (08:42)
[2023-03-13] MEDS: Finasteride 5 MG Tablet PO (08:42)
[2023-03-13] MEDS: Multivitamins,Therapeutic Tablet 1 TABLET PO (08:42)
[2023-03-13] MEDS: Ipratropium Bromide 0.06% NASAL SPRAY 2 SPRAY NASAL (08:43)
[2023-03-13] MEDS: Pantoprazole Sodium 20 MG Tablet PO (08:43)
[2023-03-13 10:35] LABS: Absolute Lymphocyte Count 0.36 X10^3/uL (0.83-4.51); Absolute Neutrophil Count 9.8 X10^3/uL (2.0-7.7); Basophil# 0.01 X10^3/uL; Basophil% 0.1 % (0-1); Hematocrit 33.6 % (40-54); Hemoglobin 10.8 g/dL (13.0-16.5); Lymphocyte # 0.36 X10^3/ul (0.83-4.51); Lymphocyte % 3.3 % (19-41); Mean Corp Hgb Conc 32.1 g/dL (32-36); Mean Corpuscular Hgb 31.1 pg (27.0-32.0); Mean Corpuscular Volume 96.8 fL (80-94); Mean Platelet Vol. 9.5 fl (6.2-12.0); Monocyte# 0.57 X10^3/uL; Monocyte% 5.3 % (0-10); NRBC Flagged by Analyzer 0 % (0-5); Neutrophil % 90.5 % (47-70); POSITIVE DIFFERENTIAL YES; Platelet Count 174 K/mm3 (150-450); RBC Distribution Width CV 13.5 % (11.6-14.6); Red Blood Count 3.47 M/mm3 (4.6-6.2); White Blood Count 10.8 K/mm3 (4.4-11.0)
[2023-03-13 10:38] LABS: Differential Indicated SCAN CRITERIA MET
[2023-03-13 11:02] LABS: Anion Gap 6 (5-15); BUN 37 mg/dL (7-18); BUN/Creat Ratio 33.9 RATIO (10-20); Calcium,Total 8.3 mg/dL (8.5-10.1); Chloride 110 mmol/L (98-107); Creatinine, Serum 1.09 mg/dL (0.70-1.30); EST Glomerular Filtration Rate 68 mL/min (>60); Est Glom Filt Rate - Afr Amer 83 mL/min (>60); Estimated Creatinine Clearance 50.45 ml/min; Glucose 154 mg/dL (74-106); Sodium Level 141 mmol/L (136-145)
--- NOTE | 2023-03-13 12:41 | CASEMGMT ---
patient relations liaison is at [facility] to meet with patient and Keyonna his POA. Mattie Carlson VACATION GUIDE MADHU
--- NOTE | 2023-03-13 14:11 | CASEMGMT ---
Discharge Planning Updated [facility] that patient is returning home with hospice services. Carmen Valdez, Discharge Planning Asst.
--- NOTE | 2023-03-13 14:31 | PCM.DC ---
Discharge Instructions Diet Discharge Diet: Low fat / Low cholesterol Activity Discharge Activity: Return to Normal Activity Weight Bearing Status: Weight bearing as tolerated Follow Up Care Test Results: Test results from this visit will be discussed in further detail at your follow-up appointment, if applicable. Discharge Plan Admission Admit Date/Time: 03/10/23 23:04 Primary Reason for Your Visit: hypoxia, malignant pleural effusion Attending Provider: Angélica Galarza Primary Care Provider: Art Grey Consulting Providers: Meri Roth; Jaciel Garcia; Ashwini Yanes; Rocio Kamara; Glenis Ignacio GROUNDS/MAINTENANCE SPECIALIST; Jaciel Quinteros Discharge Orders/Prescriptions Prescriptions: Continued amlodipine 10 mg tablet 10 mg PO DAILY multivitamin Tablet 1 tab PO DAILY finasteride 5 mg tablet 5 mg PO DAILY omeprazole 20 mg capsule,delayed release(DR/EC) 20 mg PO DAILY furosemide [Lasix] 40 mg tablet 40 mg PO DAILY potassium chloride 20 mEq tablet extended release 20 meq PO DAILY albuterol sulfate 90 mcg/actuation HFA aerosol inhaler 2 puff inhalation Q4H PRN (Reason: SOB) Qty: 8.5 3RF Trelegy Ellipta 100-62.5-25 mcg blister with device 1 inh inhalation DAILY Eliquis 5 mg tablet 5 mg PO DAILY metoprolol tartrate 50 mg tablet 50 mg PO DAILY ipratropium bromide 42 mcg (0.06 %) spray,non-aerosol 2 spray INTRANASAL DAILY Referrals / Follow Up: Art Grey MD [Primary Care Provider] - Within 2 Weeks Disposition Disposition (needs filled in before D/C Order can be placed): Hospice in Home
--- NOTE | 2023-03-13 14:31 | PCM.DC.SUM ---
Providers Date of Admission: 03/10/23 Date of Discharge: 03/13/23 Primary Care Physician: Dr. Art Grey MD Consultations 03/12/23 15:11 Consult: Hospice / Palliative Care Routine Consulting Provider: [facility] Reason for Consult: Stage IV Lung Cancer with Right Malignant Effusion plus Severe COPD. EMERGENT Consult: No MD Notified: Yes Date Notified: 03/12/23 Time Notified: 15:11 Method of Notification: Verbal Reason For Visit: COPD EXACERBATION, PAF RVR Diagnosis Discharge Diagnosis (1) Shortness of breath: Status: Acute Code(s): R06.02 - Shortness of breath Medications at Discharge Home Medications amlodipine 10 mg tablet 10 mg PO DAILY blood pressure 08/07/21 multivitamin 1 tab PO DAILY supplement 08/07/21 finasteride 5 mg tablet 5 mg PO DAILY prostate 08/08/21 omeprazole 20 mg capsule,delayed release 20 mg PO DAILY acid reflux 10/25/21 apixaban 5 mg tablet (Eliquis) 5 mg PO DAILY blood thinner 12/07/22 fluticasone fur. 100 mcg-umeclid 62.5 mcg-vilant 25 mcg inhalat.powder (Trelegy Ellipta) 1 inh inhalation DAILY shortness of breath/wheezing 12/10/22 albuterol sulfate 90 mcg/actuation aerosol inhaler 2 puff inhalation Q4H PRN SOB #8.5 grams 02/02/23 furosemide 40 mg tablet (Lasix) 40 mg PO DAILY fluid 02/02/23 potassium chloride 20 mEq tablet,extended release 20 meq PO DAILY supplement 02/02/23 ipratropium bromide 42 mcg (0.06 %) nasal spray 2 spray intranasal DAILY 03/05/23 metoprolol tartrate 50 mg tablet 50 mg PO DAILY 03/10/23 Hospital Course Operations None Procedures None Summary of Care Provided Minutes Spent on Discharge: 55 Hospital Course: Patient is an 82 y/o male with a PMH as outlined who was admitted via the ED On 03/10/2023 with a complaint of shortness of breath. HE has a PMh of hypertension, afib, lung cancer and recurrent pleural effusions for which she had had a Pleurx catheter inserted. He had recently been admitted and discharged at [facility] after presenting with the same complaints. He had recently been diagnosed with adenocarcinoma of the lung via thoracentesis on 02/27/2023. He had been transferred to a tertiary facility for CT evaluation for VATS versus pleurodesis because of loculated pleural effusion. He had a Pleurx catheter placed at the tertiary facility. He however came in because he had become short of breath and was gradually worsening. He had assisted orthopnea. He denied any fever or chills. He did have intermittent wheezing. Chest x-ray done showed a right chest tube terminating at the right lung apex at the medial aspect with a small right pleural effusion and stable to mildly decreased in size, as well as right mid and lower lung opacities concerning for infection. Similar opacities in the left lower lobe were grossly stable. WBC was 8. He was also in A-fib with RVR on admission. He was admitted and managed for hypoxia in the setting of chronic hypoxic respiratory failure due to recurrent pleural effusions from lung cancer. He was placed on breathing treatments and Solu-Medrol. His A-fib with RVR resolved with Cardizem drip. Patient was anticoagulated. Shortness of breath gradually improved. Patient lived alone and only had a neighbor who helped him. He was estranged from the rest of his family. Hospice was recommended to patient and patient was amenable to meeting hospice. He met with hospice on 03/13/2023 and was agreeable to go home with home hospice. Patient was therefore discharged home on 03/13/2023 with hospice. Patient seen and examined prior to discharge. He had no complaints and had an uneventful night. Review of systems otherwise negative. Labs and vitals reviewed. Home medication reviewed and reconciled. Physical Exam Const alert, oriented x3 and no apparent distress Constitutional Narrative: frail, looks chronically ill General Appearance: cooperative and comfortable Orientation / Consciousness: awake Resp Resp Narrative: diminished breath sounds bibasally, no wheezes or crackles. On 3L of oxygen. Has a right sided pleurx catheter in situ Cardio regular rate, regular rhythm, S1 normal heart sound, S2 normal heart sound and no murmurs GI normal to inspection, nondistended, normoactive bowel sounds Extremity normal to inspection, full ROM and no clubbing, cyanosis or edema Neuro oriented x3, CN's II-XII intact bilaterally, moves all extremities, no focal motor deficits and no sensory deficits noted Motor Exam: strength 5/5 throughout Psych affect normal Medical Records Data Medical Nutrition Assessment Dietitian: Malnutrition Criteria Met Start: 03/11/23 15:07 Freq: Status: Active Protocol: Document 03/11/23 15:07 (Rec: 03/11/23 15:07 AG [id number]) Nutrition Malnutrition Evidence of Malnutrition Exists Yes Malnutrition (moderate): Acute Illness/Injury Evidenced By Suboptimal Energy Intake ( Moderate),Weight Loss (Severe) ,Physical Changes (Moderate) Clinical Problem Acute Disease or Injury Related Malnutrition Etiology moderate acute on possibly chronic malnutrition related to inadequate energy intake w/ recent acute illness/ hospitalization Signs/Symptoms as evidenced by unintentional 15% wt loss x 1 month, estimated PO intake meeting < 75% of estimated energy needs > 1 month, mild muscle wasting /fat loss evident per physical exam in orbital, clavicle, acromion, and temporal areas Status Active Problem Recommendation Dietitian Recommendations/Changes continue regular diet; will add 8oz ensure w/ meals given evidence of malnutrition Weight / BMI Weight Weight: 178 lb 2.136 oz Body Mass Index (BMI) 26.3 ABG / Lab / Microbiology Data 03/13/23 10:12 03/13/23 10:12 Laboratory: Laboratory Results - last 24 hr 03/13/23 10:12: WBC 10.8, RBC 3.47 L, Hgb 10.8 L, Hct 33.6 L, MCV 96.8 H, MCH 31.1, MCHC 32.1, RDW Std Deviation 48.0 H, RDW Coeff of Glenn 13.5, Plt Count 174, MPV 9.5, Immature Gran % (Auto) 0.800, Neut % (Auto) 90.5 H, Lymph % (Auto) 3.3 L, Kimball % (Auto) 5.3, Eos % (Auto) 0.0, Baso % (Auto) 0.1, Absolute Neuts (auto) 9.8 H, Absolute Lymphs (auto) 0.36 L, Nucleated RBC % 0, Differential Comment COMMENT, Sodium 141, Potassium 4.0, Chloride 110 H, Carbon Dioxide 25.0, Anion Gap 6, BUN 37 H, Creatinine 1.09, Estim Creat Clear Calc 50.45, Est GFR (MDRD) Af Amer 83, Est GFR (MDRD) Non-Af 68, BUN/Creatinine Ratio 33.9 H, Glucose 154 H, Calcium 8.3 L Microbiology: Microbiology 03/10/23 23:10 Mucosa - Nasopharyngeal Respiratory Panel (PCR) - Final D/C Instructions Discharge Diet: Low fat / Low cholesterol Weight Bearing Status: Weight bearing as tolerated Meaningful Use Info Meaningful Use Diagnoses (Choose all that apply): None applicable Discharge Plan Admission Admit Date/Time: 03/10/23 23:04 Primary Reason for Your Visit: hypoxia, malignant pleural effusion Attending Provider: Angélica Galarza Primary Care Provider: Art Grey Consulting Providers: Meri Roth; Jaciel Garcia; Ashwini Yanes; Rocio Kamara; Glenis Ignacio COACH OPERATOR; Jaciel Quinteros Discharge Orders/Prescriptions Prescriptions: Continued amlodipine 10 mg tablet 10 mg PO DAILY multivitamin Tablet 1 tab PO DAILY finasteride 5 mg tablet 5 mg PO DAILY omeprazole 20 mg capsule,delayed release(DR/EC) 20 mg PO DAILY furosemide [Lasix] 40 mg tablet 40 mg PO DAILY potassium chloride 20 mEq tablet extended release 20 meq PO DAILY albuterol sulfate 90 mcg/actuation HFA aerosol inhaler 2 puff inhalation Q4H PRN (Reason: SOB) Qty: 8.5 3RF Trelegy Ellipta 100-62.5-25 mcg blister with device 1 inh inhalation DAILY Eliquis 5 mg tablet 5 mg PO DAILY metoprolol tartrate 50 mg tablet 50 mg PO DAILY ipratropium bromide 42 mcg (0.06 %) spray,non-aerosol 2 spray INTRANASAL DAILY Referrals / Follow Up: Art Grey MD [Primary Care Provider] - Within 2 Weeks Disposition Disposition (needs filled in before D/C Order can be placed): Hospice in Home Charges/Coding Visit Charges Inpatient E&M: 04687 Disch Hosp >30min
--- NOTE | 2023-03-13 14:36 | PHA.DC.MR.R ---
Pharmacy [place] Med Reconciliation Pharmacy Service has performed discharge medication reconciliation for this patient. The patient's discharge medication list was reviewed for discrepancies and discrepancies were resolved. Medications at Discharge Home Medications amlodipine 10 mg tablet 10 mg PO DAILY blood pressure 08/07/21 multivitamin 1 tab PO DAILY supplement 08/07/21 finasteride 5 mg tablet 5 mg PO DAILY prostate 08/08/21 omeprazole 20 mg capsule,delayed release 20 mg PO DAILY acid reflux 10/25/21 apixaban 5 mg tablet (Eliquis) 5 mg PO DAILY blood thinner 12/07/22 fluticasone fur. 100 mcg-umeclid 62.5 mcg-vilant 25 mcg inhalat.powder (Trelegy Ellipta) 1 inh inhalation DAILY shortness of breath/wheezing 12/10/22 albuterol sulfate 90 mcg/actuation aerosol inhaler 2 puff inhalation Q4H PRN SOB #8.5 grams 02/02/23 furosemide 40 mg tablet (Lasix) 40 mg PO DAILY fluid 02/02/23 potassium chloride 20 mEq tablet,extended release 20 meq PO DAILY supplement 02/02/23 ipratropium bromide 42 mcg (0.06 %) nasal spray 2 spray intranasal DAILY 03/05/23 metoprolol tartrate 50 mg tablet 50 mg PO DAILY 03/10/23
--- NOTE | 2023-03-13 14:50 | CASEMGMT ---
Patient signed with Hospice. Patient will go home on hospice today. Per report SW was given patient does not need to wait on hospital bed to be delivered as there currently is no room for it. Also, patient currently has O2 so hospice can set up O2 through their company once patient is home. LORENA notified physician. LORENA also sent an email to Stephany at Hosp[facility] and notified her of patient's discharge and that he will be leaving in an hour. LORENA also sent patient's d/c instructions. Plan: d/c home with [facility]. Patient's POA transported patient home. Mattie Carlson [employer]
== END 2023-03-13 16:41 | disposition hospice, home (50) | DRG 191 ==
LOC: ED 23:04 → PCU 23:10
PROVIDERS: Internal Medicine; Admitting Provider Family Medicine; Emergency Provider Emergency Medicine; PCP Family Medicine; Visit Provider Student in an Organized Health Care Education/Training Program
DX: J47.1 Bronchiectasis with (acute) exacerbation (principal); J96.11 Chronic respiratory failure with hypoxia; E44.0 Moderate protein-calorie malnutrition; C34.92 Malignant neoplasm of unspecified part of left bronchus or lung; J91.0 Malignant pleural effusion; F29 Unspecified psychosis not due to a substance or known physiological condition; Z99.81 Dependence on supplemental oxygen; I77.819 Aortic ectasia, unspecified site; I48.0 Paroxysmal atrial fibrillation; F10.11 Alcohol abuse, in remission; I10 Essential (primary) hypertension; E78.5 Hyperlipidemia, unspecified; K21.9 Gastro-esophageal reflux disease without esophagitis; G47.30 Sleep apnea, unspecified; J30.9 Allergic rhinitis, unspecified; N40.0 Benign prostatic hyperplasia without lower urinary tract symptoms; Z23 Encounter for immunization; Z79.01 Long term (current) use of anticoagulants; Z79.899 Other long term (current) drug therapy; Z87.891 Personal history of nicotine dependence; Z68.26 Body mass index [BMI] 26.0-26.9, adult
CPT/HCPCS: 36415; 71045; 80048; 80053; 83735; 83880; 84100; 84145; 84443; 84484; 85025; 87633; 93005; 94640; 94668; 94762; 97162; 97166; 97530; 97535; 97802; 99285; J7040; 90662; A4216